=== PATIENT | female | born 2000 | race Caucasian/White ===

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

== ENCOUNTER → 2021-12-01 | Outpatient (CLI) | payer OTHER, SELFPAY ==
[2021-12-07 09:40] LABS: HPV Reflexed? NOT INDICATED
== END | disposition home or self-care (01) ==
LOC: LABSPEC 09:00
PROVIDERS: PCP Pediatrics; Visit Provider Student in an Organized Health Care Education/Training Program
DX: Z01.419 Encounter for gynecological examination (general) (routine) without abnormal findings (principal)
CPT/HCPCS: 88175; G0145

== ENCOUNTER → 2024-07-14 | Outpatient (CLI) | payer BC, SELFPAY ==
[2024-07-14 12:11] LABS: Absolute Lymphocyte Count 2.42 X10^3/uL (0.83-4.51); Absolute Neutrophil Count 10.2 X10^3/uL (2.0-7.7); Basophil# 0.08 X10^3/uL; Basophil% 0.6 % (0-1); Eosinophil# 0.04 X10^3/uL; Eosinophils% 0.3 % (0-5); Hematocrit 44.8 % (37-47); Hemoglobin 15.3 g/dL (12.0-15.0); Lymphocyte # 2.42 X10^3/ul (0.83-4.51); Lymphocyte % 18.1 % (19-41); Mean Corp Hgb Conc 34.2 g/dL (32-36); Mean Corpuscular Volume 90.9 fL (81-99); Mean Platelet Vol. 10.4 fl (6.2-12.0); Monocyte# 0.57 X10^3/uL; Monocyte% 4.3 % (0-10); NRBC Flagged by Analyzer 0 % (0-5); Neutrophil # 10.22 X10^3/uL (2.7-7.7); Neutrophil % 76.3 % (47-70); Platelet Count 393 K/mm3 (150-450); RBC Distribution Width CV 12.9 % (11.6-14.6); RBC Distribution Width SD 42.7 fl (35.1-43.9); Red Blood Count 4.93 M/mm3 (4.2-5.4); White Blood Count 13.4 K/mm3 (4.4-11.0)
[2024-07-14 12:59] LABS: Hemoglobin A1c 5.3 % (<=5.6)
[2024-07-14 13:10] LABS: HIV Nonreactive (Nonreactive); Hepatitis B Surface Antigen Nonreactive (Nonreactive); Hepatitis C Antibody Nonreactive (Nonreactive); Rubella IgG REAC (Nonreactive); Syphilis Antibodies Nonreactive (Nonreactive)
[2024-07-17 22:06] LABS: Chlamydia By Nucleic Acid AMP Negative (Negative); Gonococcus By Nucleic Acid AMP Negative (Negative)
== END | disposition home or self-care (01) ==
PROVIDERS: Obstetrics & Gynecology; PCP Pediatrics; Referring Provider Advanced Practice Midwife; Visit Provider Advanced Practice Midwife
DX: O09.90 Supervision of high risk pregnancy, unspecified, unspecified trimester (principal); Z3A.00 Weeks of gestation of pregnancy not specified
CPT/HCPCS: 36415; 83036; 85025; 86703; 86762; 86780; 86803; 86850; 86900; 86901; 87086; 87088; 87340; 87491; 87591; 88175; G0145

== ENCOUNTER → 2024-08-16 | Outpatient (CLI) | payer OTHER, SELFPAY ==
[2024-08-16 13:21] LABS: ALB/GLOB Ratio 1.3 RATIO (0.9-2.4); AST(SGOT) 18 U/L (<=31); Alanine Aminotransfer ALT/SGPT 18 U/L (<=34); Albumin, Serum 4.2 g/dL (3.5-5.0); Alkaline Phosphatase 74 U/L (35-104); Anion Gap 13 (5-15); BUN 6 mg/dL (4-19); BUN/Creat Ratio 13.3 RATIO (10-20); Calcium,Total 9.3 mg/dL (7.6-11.0); Carbon Dioxide 19.2 mmol/L (21.0-32.0); Chloride 103 mmol/L (98-108); Creatinine, Serum 0.48 mg/dL (0.70-1.20); EST Glomerular Filtration Rate 136 (>60); Globulin 3.2 g/dL (2.2-4.2); Glucose 109 mg/dL (70-99); Potassium 3.7 mmol/L (3.3-5.1); Protein, Total 7.3 g/dL (5.9-8.4); Sodium Level 135 mmol/L (133-145); Total Bilirubin < 0.15 mg/dL (0.00-1.30)
[2024-08-16 16:44] LABS: Protein, Urine (Random) < 6.0 mg/dL (0.0-12.0); Protein:Creat Ratio UNABLE TO CALCULATE mg/g CRE (0-200)
== END | disposition home or self-care (01) ==
PROVIDERS: PCP Pediatrics; Referring Provider Obstetrics & Gynecology; Visit Provider Obstetrics & Gynecology
DX: O16.9 Unspecified maternal hypertension, unspecified trimester (principal); Z3A.00 Weeks of gestation of pregnancy not specified
CPT/HCPCS: 36415; 80053; 82570; 84156

== ENCOUNTER → 2024-09-26 | Outpatient (CLI) | payer OTHER, SELFPAY ==
[2024-09-26 12:24] LABS: Hematocrit 40.6 % (37-47); Hemoglobin 13.4 g/dL (12.0-15.0); Immature Granulocytes Count 0.080 X10^3/uL (0.0-0.0); Mean Corp Hgb Conc 33.0 g/dL (32-36); Mean Corpuscular Volume 93.1 fL (81-99); Mean Platelet Vol. 10.4 fl (6.2-12.0); NRBC Flagged by Analyzer 0 % (0-5); Platelet Count 340 K/mm3 (150-450); RBC Distribution Width CV 13.9 % (11.6-14.6); RBC Distribution Width SD 47.1 fl (35.1-43.9); Red Blood Count 4.36 M/mm3 (4.2-5.4); White Blood Count 11.8 K/mm3 (4.4-11.0)
[2024-09-26 13:00] LABS: Creatinine, Urine (random) 22.20 mg/dL (28.00-217.00); Protein, Urine (Random) 9.0 mg/dL (0.0-12.0); Protein:Creat Ratio 405 mg/g CRE (0-200)
[2024-09-26 13:17] LABS: AST(SGOT) 16 U/L (<=31); Alanine Aminotransfer ALT/SGPT 15 U/L (<=34); Albumin, Serum 4.1 g/dL (3.5-5.0); Alkaline Phosphatase 75 U/L (35-104); Anion Gap 14 (5-15); BUN 9 mg/dL (4-19); BUN/Creat Ratio 18.9 RATIO (10-20); Calcium,Total 9.3 mg/dL (7.6-11.0); Carbon Dioxide 21.1 mmol/L (21.0-32.0); Chloride 103 mmol/L (98-108); Globulin 3.2 g/dL (2.2-4.2); Glucose 87 mg/dL (70-99); Potassium 3.6 mmol/L (3.3-5.1)
== END | disposition home or self-care (01) ==
PROVIDERS: PCP Pediatrics; Referring Provider Nurse Practitioner Women's Health; Visit Provider Nurse Practitioner Women's Health
DX: O16.9 Unspecified maternal hypertension, unspecified trimester (principal); Z3A.00 Weeks of gestation of pregnancy not specified
CPT/HCPCS: 36415; 80053; 82570; 84156; 85025

== ENCOUNTER → 2024-09-28 | Outpatient (CLI) | payer OTHER, SELFPAY ==
[2024-09-28 10:05] LABS: 24HR. Urine Creatinine 2034.4 mg/24 hr (740.0-1540.0); Creatinine Serum Creat 0.5 mg/dL (0.6-1.0); Urine Protein (24 Hour) 7.7 mg/dL (<11.9)
[2024-09-28 10:06] LABS: 24HR. UA Prot. Total Volume 3125 mL; 24Hr UA Prot. Collection Time 24.0 HOURS (24.0)
== END | disposition home or self-care (01) ==
PROVIDERS: Nurse Practitioner Women's Health; PCP Pediatrics; Referring Provider Obstetrics & Gynecology; Visit Provider Obstetrics & Gynecology
DX: O12.10 Gestational proteinuria, unspecified trimester (principal); Z3A.00 Weeks of gestation of pregnancy not specified
CPT/HCPCS: 36415; 81050; 82565; 82570; 82575; 84156

== ENCOUNTER → 2024-11-09 | Outpatient (CLI) | payer OTHER, SELFPAY ==
[2024-11-09 12:27] LABS: Hematocrit 38.4 % (37-47); Hemoglobin 12.7 g/dL (12.0-15.0); Immature Granulocytes Count 0.070 X10^3/uL (0.0-0.0); Mean Corp Hgb Conc 33.1 g/dL (32-36); Mean Corpuscular Volume 93.4 fL (81-99); Mean Platelet Vol. 10.6 fl (6.2-12.0); NRBC Flagged by Analyzer 0 % (0-5); Platelet Count 295 K/mm3 (150-450); RBC Distribution Width CV 14.0 % (11.6-14.6); RBC Distribution Width SD 47.6 fl (35.1-43.9); Red Blood Count 4.11 M/mm3 (4.2-5.4); White Blood Count 9.9 K/mm3 (4.4-11.0)
[2024-11-09 13:33] LABS: Glucose Challenge Gest 1H 50g 181 mg/dL (70-140); HIV Nonreactive (Nonreactive); Syphilis Antibodies Nonreactive (Nonreactive)
== END | disposition home or self-care (01) ==
PROVIDERS: Nurse Practitioner Women's Health; PCP Pediatrics; Referring Provider Obstetrics & Gynecology; Visit Provider Obstetrics & Gynecology
DX: O09.92 Supervision of high risk pregnancy, unspecified, second trimester (principal); Z3A.00 Weeks of gestation of pregnancy not specified; Z13.1 Encounter for screening for diabetes mellitus
CPT/HCPCS: 36415; 82950; 85025; 86703; 86780

== ENCOUNTER 2024-12-04 08:00 | Outpatient (RCR) | payer OTHER, SELFPAY | END 2024-12-05 23:59 | LOC: NS 08:00 | PROVIDERS: PCP Pediatrics; Referring Provider Obstetrics & Gynecology; Visit Provider Obstetrics & Gynecology | DX: Z71.3 Dietary counseling and surveillance (principal); O24.419 Gestational diabetes mellitus in pregnancy, unspecified control | CPT/HCPCS: 97802; 97803 ==

== ENCOUNTER → 2025-01-18 | Outpatient (CLI) | payer OTHER, SELFPAY | END | disposition home or self-care (01) | LOC: LABSPEC 17:10 | PROVIDERS: PCP Pediatrics; Visit Provider Obstetrics & Gynecology | DX: O09.92 Supervision of high risk pregnancy, unspecified, second trimester (principal); Z3A.00 Weeks of gestation of pregnancy not specified | CPT/HCPCS: 87081 ==

== ENCOUNTER 2025-02-08 15:00 | Outpatient (CLI) | payer OTHER, SELFPAY ==
[2025-02-08] VITALS (17 sets, daily range): BP systolic 113–127; BP diastolic 70–75; PULSE 99–111; RESP 14–16; TEMP 36.7; O2SAT 93–99; BMI 38.1
[2025-02-08 15:26] LABS: Hematocrit 40.2 % (37-47); Hemoglobin 13.4 g/dL (12.0-15.0); Mean Corp Hgb Conc 33.3 g/dL (32-36); Mean Corpuscular Volume 90.5 fL (81-99); Mean Platelet Vol. 10.7 fl (6.2-12.0); Platelet Count 293 K/mm3 (150-450); RBC Distribution Width CV 14.3 % (11.6-14.6); RBC Distribution Width SD 47.2 fl (35.1-43.9); Red Blood Count 4.44 M/mm3 (4.2-5.4); White Blood Count 14.3 K/mm3 (4.4-11.0)
[2025-02-08 15:51] LABS: AST(SGOT) 15 U/L (<=31); Alanine Aminotransfer ALT/SGPT 12 U/L (<=34); Estimated Creatinine Clearance 205.07 ml/min (50-250); Uric Acid 4.1 mg/dL (2.6-6.0)
[2025-02-08 15:56] LABS: Creatinine, Urine (random) 76.00 mg/dL (28.00-217.00); Protein, Urine (Random) 20.1 mg/dL (0.0-12.0); Protein:Creat Ratio 264 mg/g CRE (0-200)
--- NOTE | 2025-02-08 17:31 | OB.TRI.HP_ITS ---
HPI - General HPI Narrative JOSE POLLACK, is a 24 F who presents to L&D to rule out pre-e due to some borderline elevated blood pressures in the office. She denies headache, visual changes or abdominal pain. She is 39 weeks Maternal Data Information ED Calculator Estimated Delivery Date Method Current WG Current Estimate 02/15/25 LMP (Certain) 39w 0d Other Estimates 02/19/25 Ultrasound #1 38w 3d PFSH PFSH Medical History Seasonal allergies Home Medications ?Medication ?Instructions ?Recorded ?Last Taken ?Type docosahexaenoic acid 200 mg mg PO DAILY 06/07 05/02 Unknown History capsule ( DHA) flash glucose scanning reader #1 ea 11/10/24 Unknown R x (FreeStyle Rhonda 2 [place]) flash glucose sensor (FreeStyle #1 ea 11/28/24 Unknown Rx Rhonda 2 Sensor kit) Allergy/AdvReac Type Severity Reaction Status Date / Time amoxicillin Allergy Hives Verified 02/08/25 15:17 Penicillins Allergy Rash Verified 02/08/25 15:17 Family History Brother Asthma Father Diabetes Type 2 Grandfather Diabetes Type 2 Surgical History S/P wisdom tooth extraction S/P tonsillectomy and adenoidectomy Social History adopted: No household members: spouse current occupational status: employed current occupation: [employer] current occupational exposures/hazards: No pets and animals: Yes pets and animals: dog(s) history of recent travel: Yes ([place] & [place] & [place] - Apr 2024) out of state: No out of country: Yes sexually active: Yes Smoking Status: Never smoker alcohol intake: never substance use type: does not use well-balanced diet: daily or most days caffeine: No eating out: 1-3 times/week during the past year weight has: remained stable what type of physical activity do you participate in: walking frequency: 3-4 times per week duration: 15-30 minutes/day stephanie/lutheran: Shinto seatbelt use: always do you feel safe at home: Yes additional social history: : Joao Orosco History 1 Elective abortions Hx Para 0 Spontaneous abortions 0 Hx # Term Pregnancies Ectopic pregnancies Hx # Pregnancies Multiple births # of living children Visit Details Expected Delivery Route/Plan Labor Preferences- CB/BF classes: yes labor support person: Joao labor intervention preferences: [] pain management options preferred: open to epidural, touch, breathing techniques cut cord/dad catch: yes : yes PP control planned: [] discussed possible routes of delivery and associated risks: [] special requests: [] Plans Covid status: [] Flu vaccine: declines Tdap vaccine: given Rhogam: na LARC form signed: yes Problem list reviewed and updated with the most current plan of care details and appropriate orders placed. Relevant counseling for the gestational age provided. Continue routine care and follow up unless otherwise noted in visit notes/problem list details OB Flowsheet Initial Weight: Not Recorded Date -?-?-?-?-?-?-?-?-?-?-?-?- EGA Weight BP Urine Prot -?-?-?-?-?-?-?-?-?-?-?-?- Glucose FHR FuHt Pres Dilation -?-?-?-?-?-?-?-?-?-?-?-?- Effaced St Visit Note 07/14/24 -?-?-?-?-?-?--?-?-?-?-?-?- 9w 1d 226 lb 4 oz 146/95 -?-?-?-?-?-?-?-?-?-?-?-?- 171 -?-?-?-?-?-?-?-?-?-?-?-?- KW- CRL cons wit h dates. declines NIPT 08/16/24 -?-?-?-?-?-?-?-?-?-?-?-?- 13w 6d 229 lb 8 oz 126/94 Nega tive -?-?-?-?-?-?-?-?-?-?-?-?- Negative 160 -?-?-?-?-?-?-?-?-?-?-?-?- JV- patient stat es that she is feeling better BP was elevated initially. ordering baseline PIH labs and she will start taking her bp at home. 09/14/24 -?-?-?-?-?-?-?-?-?-?-?-?- 18w 0d 232 lb 6 oz 142/86 Nega tive -?-?-?-?-?-?-?-?-?-?-?-?- Negative 154 -?-?-?-?-?-?-?-?-?-?-?-?- JV- bp's at home are 120's/70's. not sure if feeling movement yet. has anatomy scan 09/21. She will bring in her cuff from home next visit to compare. repeat bp was the same 09/26/24 -?-?-?-?-?-?-?-?-?-?-?-?- 19w 5d 235 lb 2 oz 128/86 Nega tive -?-?-?-?-?-?-?-?-?-?-?-?- Negative -?-?-?-?-?-?-?-?-?-?-?-?- Nurse visit only :Variable BPs on home machine and high. No headache, vision changes. Small cuff, will get new machine. Pre E labs. 09/27/24 -?-?-?-?-?-?-?-?-?-?-?-?- 19w 6d 233 lb 2 oz 136/84 Nega tive -?-?-?-?-?-?-?-?-?-?-?-?- Negative -?-?-?-?-?-?-?-?-?-?-?-?- nurse visit only today for bp check due to headache 10/02/24 -?-?-?-?-?-?-?-?-?-?-?-?- 20w 4d 234 lb 140/86 -?-?-?-?-?-?-?-?-?-?-?-?- 145 -?-?-?-?-?-?-?-?-?-?-?-?- SM- nl bps at [facility] nl labs and 24 hour urine. no vb lof good fm no regular ctx 10/11/24 -?-?-?-?-?-?-?-?-?-?-?-?- 21w 6d 235 lb 8 oz 128/84 Nega tive -?-?-?-?-?-?-?-?-?-?-?-?- Negative 155 -?-?-?-?-?-?-?-?-?-?-?-?- MH-No VB. Good F M. Nausea resolved. No concerns 11/09/24 -?-?-?-?-?-?-?-?-?-?-?-?- 26w 0d 237 lb 9 oz 131/84 Nega tive -?-?-?-?-?-?-?-?-?-?-?-?- Negative 145 -?-?-?-?-?-?-?-?-?-?-?-?- JV- did glucose test today. no complaints. JV- did glucose test today. no complaints. has appt for placenta location on 11/2311/24/24 -?-?-?-?-?-?-?-?-?-?-?-?- 28w 1d 237 lb 3 oz 134/89 Nega tive -?-?-?-?-?-?-?-?-?-?-?-?- Negative 150 28 -?-?-?-?-?-?-?-?-?-?-?-?- KW- reviewed blo od sugars and within normal limits. no vb/lof/ctx. good fm LARC and tdap today. CBE classes set up. 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 had follow up US with mfm and placenta moved. 12/04/24 -?-?-?-?-?-?-?-?-?-?-?-?- 29w 4d 239 lb 5 oz 128/83 Nega tive -?-?-?-?-?-?-?-?-?-?-?-?- Negative 141 30 -?-?-?-?-?-?-?-?-?-?-?-?- MH-NO VB, LOF. G ood Fm. All QID glucose readings WNL. Will check FBS and one 2 hr pp. 12/19/24 -?-?-?-?-?-?-?-?-?-?-?-?- 31w 5d 240 lb 9 oz 127/82 Nega tive -?-?-?-?-?-?-?-?-?-?-?-?- Negative 147 32 -?-?-?-?-?-?-?-?-?-?-?-?- MH-No VB, LOF. G ood FM. Still QID testing and all reading WNL. 01/02/25 -?-?-?-?-?-?-?-?-?-?-?-?- 33w 5d 243 lb 4 oz 137/85 Nega tive -?-?-?-?-?-?-?-?-?-?-?-?- Negative 145 34 -?-?-?-?-?-?-?-?-?-?-?-?- SM- no vb lof go od fm no regular ctx. 01/18/25 -?-?-?-?-?-?-?-?-?-?-?-?- 36w 0d 245 lb 4 oz 131/77 Nega tive -?-?-?-?-?-?-?-?-?-?-?-?- Negative 145 36 -?-?-?-?-?-?-?-?-?-?-?-?- Sm- no vb lof go od fm no reuglar ctx gbs today BS controlled 01/24/25 -?-?-?-?-?-?-?-?-?-?-?-?- 36w 6d 247 lb 6 oz 132/87 Nega tive -?-?-?-?-?-?-?-?-?-?-?-?- Negative 145 37 Cephalic 2 -?-?-?-?-?-?-?-?-?-?-?-?- 60 -2 KW- no vb/ lof/ctx. good fm. BS reviewed and normal. 01/31/25 -?-?-?-?-?-?-?-?-?-?-?-?- 37w 6d 249 lb 2 oz 129/95 Nega tive -?-?-?-?-?-?-?-?-?-?-?-?- Negative 140 37 Cephalic 2 .5 -?-?-?-?-?-?-?-?-?-?-?-?- 50 -2 JV- no lof , vaginal bleeding, or dec fm. glucose log is normal. growth scan from last week normal. 5.5lbs ac at 22nd% 02/08/25 -?-?-?-?-?-?-?-?-?-?-?-?- 39w 0d 252 lb 2 oz 138/83 Nega tive -?-?-?-?-?-?-?-?-?-?-?-?- Negative 159 38 Cephalic 2 .5 -?-?-?-?-?-?-?-?-?-?-?-?- 80 -2 JV- glucos e normal. first bp was 150's/ 90's sending to L&D to rule out pre-e ROS Constitutional Constitutional: Reports systems reviewed and no addt'l complaints, except as documented Gastrointestinal Gastrointestinal: Denies bloating, constipation, cramping, diarrhea, nausea or vomiting Genitourinary Genitourinary: Reports other Details: Denies vaginal odor, vaginal bleeding, or vaginal discharge ; Denies difficulty urinating or flank pain NST FHR Rate Baby A Baseline: 140 Variability:: Moderate Accelerations:: 15 x 15 Decelerations:: None NST Reactive:: Yes FHR Category:: Category I Assessment & Plan (1) White coat syndrome without hypertension: COMMENT: all normal bps at home. (2) Gestational diabetes: QUALIFIERS: Gestational diabetes mellitus control: diet-controlled Trimester: second trimester Qualified Code(s): O24.410 - Gestational diabetes mellitus in , diet controlled COMMENT: diet controlled. growth US 36 weeks (3) Obesity affecting : QUALIFIERS: Trimester: second trimester Obesity type affecting : unspecified obesity Qualified Code(s): O99.212 - Obesity complicatin g , second trimester COMMENT: BMI 34.7; HgBA1C ordered w/NOB (4) Supervision of high-risk : QUALIFIERS: Trimester: second trimester Qualified Code(s): O09.92 - Supervision of high risk , unspecified, second trimester COMMENT: PRR ED 02/15/25, boy Davin : Joao (5) : QUALIFIERS: Weeks of gestation: 37 weeks Qualified Code(s): Z3A.37 - 37 weeks gestation of COMMENT: Neg GBS. Declines genetic/carrier/ntd testing. nl anatomy PLAN: Plan likely white coat syndrome in the office. all bp's are normal on L&D and labs are normal. nst reactive ok to dc home Charges/Coding Multi Select Codes Urinary/Genital Urinary/Genital CPT Codes: 88199-03 non-stress test Interp
--- NOTE | 2025-02-08 17:31 | OB.TRI.NOTE ---
HPI - General HPI Narrative JOSE POLLACK, is a 24 F who presents to L&D to rule out pre-e due to some borderline elevated blood pressures in the office. She denies headache, visual changes or abdominal pain. She is 39 weeks Maternal Data Information ED Calculator Estimated Delivery Date Method Current WG Current Estimate 02/15/25 LMP (Certain) 39w 0d Other Estimates 02/19/25 Ultrasound #1 38w 3d PFSH PFSH Medical History Seasonal allergies Home Medications ?Medication ?Instructions ?Recorded ?Last Taken ?Type docosahexaenoic acid 200 mg mg PO DAILY 06/27/24 Unknown History capsule ( DHA) flash glucose scanning reader #1 ea 11/10/24 Unknown Rx (FreeStyle Rhonda 2 [place]) flash glucose sensor (FreeStyle #1 ea 11/28/24 Unknown Rx Rhonda 2 Sensor kit) Allergy/AdvReac Type Severity Reaction Status Date / Time amoxicillin Allergy Hives Verified 02/08/25 15:17 Penicillins Allergy Rash Verified 02/08/25 15:17 Family History Brother Asthma Father Diabetes Type 2 Grandfather Diabetes Type 2 Surgical History S/P wisdom tooth extraction S/P tonsillectomy and adenoidectomy Social History adopted: No household members: spouse current occupational status: employed current occupation: [employer] current occupational exposures/hazards: No pets and animals: Yes pets and animals: dog(s) history of recent travel: Yes ([place] & [place] & [place] - Apr 2024) out of state: No out of country: Yes sexually active: Yes Smoking Status: Never smoker alcohol intake: never substance use type: does not use well-balanced diet: daily or most days caffeine: No eating out: 1-3 times/week during the past year weight has: remained stable what type of physical activity do you participate in: walking frequency: 3-4 times per week duration: 15-30 minutes/day stephanie/mandaen: Yazidi seatbelt use: always do you feel safe at home: Yes additional social history: : Joao Orosco History 1 Elective abortions Hx Para 0 Spontaneous abortions 0 Hx # Term Pregnancies Ectopic pregnancies Hx # Pregnancies Multiple births # of living children Visit Details Expected Delivery Route/Plan Labor Preferences- CB/BF classes: yes labor support person: Joao labor intervention preferences: [] pain management options preferred: open to epidural, touch, breathing techniques cut cord/dad catch: yes : yes PP control planned: [] discussed possible routes of delivery and associated risks: [] special requests: [] Plans Covid status: [] Flu vaccine: declines Tdap vaccine: given Rhogam: na LARC form signed: yes Problem list reviewed and updated with the most current plan of care details and appropriate orders placed. Relevant counseling for the gestational age provided. Continue routine care and follow up unless otherwise noted in visit notes/problem list details OB Flowsheet Initial Weight: Not Recorded Date <del>?</del> EGA Weight BP Urine Prot <del>?</del> Glucose FHR FuHt Pres Dilation <del>?</del> Effaced St Visit Note 07/14/24 <del>?</del> 9w 1d 226 lb 4 oz 146/95 <del>?</del> 171 <del>?</del> KW- CRL cons with dates. declines NIPT 08/16/24 <del>?</del> 13w 6d 229 lb 8 oz 126/94 Negative <del>?</del> Negative 160 <del>?</del> JV- patient states that she is feeling better BP was elevated initially. ordering baseline PIH labs and she will start taking her bp at home. 09/14/24 <del>?</del> 18w 0d 232 lb 6 oz 142/86 Negative <del>?</del> Negative 154 <del>?</del> JV- bp's at home are 120's/70's. not sure if feeling movement yet. has anatomy scan 09/21. She will bring in her cuff from home next visit to compare. repeat bp was the same 09/26/24 <del>?</del> 19w 5d 235 lb 2 oz 128/86 Negative <del>?</del> Negative <del>?</del> Nurse visit only:Variable BPs on home machine and high. No headache, vision changes. Small cuff, will get new machine. Pre E labs. 09/27/24 <del>?</del> 19w 6d 233 lb 2 oz 136/84 Negative <del>?</del> Negative <del>?</del> nurse visit only today for bp check due to headache 10/02/24 <del>?</del> 20w 4d 234 lb 140/86 <del>?</del> 145 <del>?</del> SM- nl bps at home nl labs and 24 hour urine. no vb lof good fm no regular ctx 10/11/24 <del>?</del> 21w 6d 235 lb 8 oz 128/84 Negative <del>?</del> Negative 155 <del>?</del> MH-No VB. Good FM. Nausea resolved. No concerns 11/09/24 <del>?</del> 26w 0d 237 lb 9 oz 131/84 Negative <del>?</del> Negative 145 <del>?</del> JV- did glucose test today. no complaints. JV- did glucose test today. no complaints. has appt for placenta location on 11/2311/24/24 <del>?</del> 28w 1d 237 lb 3 oz 134/89 Negative <del>?</del> Negative 150 28 <del>?</del> KW- reviewed blood sugars and within normal limits. no vb/lof/ctx. good fm LARC and tdap today. CBE classes set up. will think about fish skinning machine feeder. had follow up US with mfm and placenta moved. 12/04/24 <del>?</del> 29w 4d 239 lb 5 oz 128/83 Negative <del>?</del> Negative 141 30 <del>?</del> -NO VB, LOF. Good Fm. All QID glucose readings WNL. Will check FBS and one 2 hr pp. 12/19/24 <del>?</del> 31w 5d 240 lb 9 oz 127/82 Negative <del>?</del> Negative 147 32 <del>?</del> MH-No VB, LOF. Good FM. Still QID testing and all reading WNL. 01/02/25 <del>?</del> 33w 5d 243 lb 4 oz 137/85 Negative <del>?</del> Negative 145 34 <del>?</del> SM- no vb lof good fm no regular ctx. 01/18/25 <del>?</del> 36w 0d 245 lb 4 oz 131/77 Negative <del>?</del> Negative 145 36 <del>?</del> Sm- no vb lof good fm no reuglar ctx gbs today BS controlled 01/24/25 <del>?</del> 36w 6d 247 lb 6 oz 132/87 Negative <del>?</del> Negative 145 37 Cephalic 2 <del>?</del> 60 -2 KW- no vb/lof/ctx. good fm. BS reviewed and normal. 01/31/25 <del>?</del> 37w 6d 249 lb 2 oz 129/95 Negative <del>?</del> Negative 140 37 Cephalic 2.5 <del>?</del> 50 -2 JV- no lof, vaginal bleeding, or dec fm. glucose log is normal. growth scan from last week normal. 5.5lbs ac at 22nd% 02/08/25 <del>?</del> 39w 0d 252 lb 2 oz 138/83 Negative <del>?</del> Negative 159 38 Cephalic 2.5 <del>?</del> 80 -2 JV- glucose normal. first bp was 150's/ 90's sending to L&D to rule out pre-e ROS Constitutional Constitutional: Reports systems reviewed and no addt'l complaints, except as documented Gastrointestinal Gastrointestinal: Denies bloating, constipation, cramping, diarrhea, nausea or vomiting Genitourinary Genitourinary: Reports other Details: Denies vaginal odor, vaginal bleeding, or vaginal discharge ; Denies difficulty urinating or flank pain NST FHR Rate Baby A Baseline: 140 Variability:: Moderate Accelerations:: 15 x 15 Decelerations:: None NST Reactive:: Yes FHR Category:: Category I Assessment & Plan (1) White coat syndrome without hypertension: COMMENT: all normal bps at home. (2) Gestational diabetes: QUALIFIERS: Gestational diabetes mellitus control: diet-controlled Trimester: second trimester Qualified Code(s): O24.410 - Gestational diabetes mellitus in , diet controlled COMMENT: diet controlled. growth US 36 weeks (3) Obesity affecting : QUALIFIERS: Trimester: second trimester Obesity type affecting : unspecified obesity Qualified Code(s): O99.212 - Obesity complicating , second trimester COMMENT: BMI 34.7; HgBA1C ordered w/NOB (4) Supervision of high-risk : QUALIFIERS: Trimester: second trimester Qualified Code(s): O09.92 - Supervision of high risk , unspecified, second trimester COMMENT: PRR ED 02/15/25, darian Jin : Joao (5) : QUALIFIERS: Weeks of gestation: 37 weeks Qualified Code(s): Z3A.37 - 37 weeks gestation of COMMENT: Neg GBS. Declines genetic/carrier/ntd testing. nl anatomy PLAN: Plan likely white coat syndrome in the office. all bp's are normal on L&D and labs are normal. nst reactive ok to dc home Charges/Coding Multi Select Codes Urinary/Genital Urinary/Genital CPT Codes: 85211-02 non-stress test Interp
== END 2025-02-08 16:30 | disposition home or self-care (01) ==
LOC: WPOUT 15:02 → WP 15:03
PROVIDERS: PCP Pediatrics; Referring Provider Obstetrics & Gynecology; Visit Provider Obstetrics & Gynecology
DX: O99.891 Other specified diseases and conditions complicating pregnancy (principal); R03.0 Elevated blood-pressure reading, without diagnosis of hypertension; Z3A.39 39 weeks gestation of pregnancy
CPT/HCPCS: 36415; 59025; 59050; 82565; 82570; 84156; 84450; 84460; 84550; 85027; 99221; G0378

== ENCOUNTER 2025-02-13 10:45 | Inpatient (IN) | payer OTHER, SELFPAY ==
[2025-02-13] VITALS (46 sets, daily range): BP systolic 116–172; BP diastolic 68–117; PULSE 85–134; RESP 16; TEMP 35.8–36.8; O2SAT 81–100; BMI 44.7; BMI 1800.0; BMI 20251209.0
[2025-02-13 10:26] LABS: ROM Internal Control Test YES-OK TO RESULT pt. (Internal QC); ROM Patient Test Negative (Negative); Record Kit Lot#, ROM+ K3607
[2025-02-13] MEDS: Lactated Ringers 1,000 ML 50 ML IV (12:15)
[2025-02-13 12:52] LABS: Hematocrit 41.6 % (37-47); Hemoglobin 14.1 g/dL (12.0-15.0); Immature Granulocytes Count 0.050 X10^3/uL (0.0-0.0); Mean Corp Hgb Conc 33.9 g/dL (32-36); Mean Corpuscular Volume 89.5 fL (81-99); Mean Platelet Vol. 11.1 fl (6.2-12.0); NRBC Flagged by Analyzer 0 % (0-5); Platelet Count 289 K/mm3 (150-450); RBC Distribution Width CV 14.4 % (11.6-14.6); RBC Distribution Width SD 46.5 fl (35.1-43.9); Red Blood Count 4.65 M/mm3 (4.2-5.4); White Blood Count 12.4 K/mm3 (4.4-11.0)
--- OUTSIDE RECORDS SUMMARY | 2025-02-13 13:21 | XMS RPT_ITS | CCD ---
Author Organization [facility] Care Team Providers Care Decorative Cutting Machine Tender Name Role Phone Dr. Eran Vu DO Primary Care Provider Facundo HWANG, Dr. Petersen Referring Provider Uriel ARAYA, Dr. Olivier Attending Provider Nancy Wolfe CNM Attending Provider [phone] Nancy Wolfe CNM Referring Provider [phone] Dr. Kiley Haji DO Attending Provider Dr. Kiley aHji DO Referring Provider Simeon SIERRA-Naomi Mack Attending Provider [phone] Naomi Juan Referring Provider [phone] Dr. Eran Vu DO Primary Care Provider Facundo HWANG, Dr. Petersen Referring Provider [phone] Dr. Charline Alvarez MD Attending Provider [phone] Dr. Charline Alvarez MD Referring Provider [phone] CHARLINE ALVAREZ Referring UnavailERAN Vidales Primary Care Unavailable LUCAS LYNN Attending Unavailable ERAN VU Primary Care Unavailable KILEY HALLMAN Referring Unavailab SILVINA Paris Attending Unavailable ERAN VU Primary Care Unavailable JANIYA TORRES Attending Unavailable KILEY HALLMAN Referring Unavailab Dr. Eran Goddard DO Primary Care Physician [phone] Dr. Eran Vu DO Referring Provider Dr. Kiley Haji DO Attending Physician Simeon ROUTER SETTER-C, Naomi Attending Physician [phone] Uriel ARAYA, Dr. Olivier Attending Physician Nancy Wolfe CNM Attending Physician [phone] Facundo HWANG, Dr. Petersen Primary Care Physician Facundo HWANG, Dr. Petersen Referring Provider Judah George DO, Dr. Cao Attending Physician Judah George DO, Dr. Cao Referring Provider Eran Vu Referring Unavailable Vu, Eran Primary Care Unavailable Nancy Wolfe Attending Unavailable Vande Velwicho, Kiley Attending Unavailabl e Vande Velde, Kiley Referring Unavailabl e Vu, Eran Primary Care Unavailable VuEran bailon Primary Care Unavailable Charline Alvarez Referring Unavailable Charline Alvarez Attending Unavailable Eran Vu Referring Unavailable Liberty ROUTER SETTERNaomi Attending Unavailable Eran Vu Primary Care Unavailable VuEran bailon Referring Unavailable MarcanthCharline tang Attending Unavailable VuEran bailon Primary Care Unavailable Vande Velwicho, Kiley Attending Unavailabl e VuEran bailon Primary Care Unavailable VuEran bailon Referring Unavailable VuEran bailon Primary Care Unavailable Nancy Wolfe Referring Unavailable Nancy Wolfe Attending Unavailable Vande Velde, Kiley Referring Unavailabl e Vande Velde, Kiley Attending Unavailabl e VuEran bailon Primary Care Unavailable VuEran bailon Primary Care Unavailable Eran Vu Referring Unavailable Liberty ROUTER SETTER, Naomi Attending Unavailable Vande Velde, Kiley Attending Unavailabl e Vu, Eran Primary Care Unavailable VuEran bailon Referring Unavailable Liberty ROUTER SETTER, Naomi Referring Unavailable Simeon ROUTER SETTER, Naomi Attending Unavailable Eran Vu Primary Care Unavailable VuEran bailon Primary Care Unavailable Charline Alvarez Referring Unavailable Charline Alvarez Attending Unavailable VuEran bailon Primary Care Unavailable Charline Alvarez Attending Unavailable Charline Alvarez Referring Unavailable VuEran bailon Primary Care Unavailable Eran Vu Referring Unavailable Simeon ROUTER SETTER, Naomi Attending Unavailable Eran Vu Referring Unavailable VuEran bailon Primary Care Unavailable Simeon ROUTER SETTER, Naomi Attending Unavailable VuEran bailon Referring Unavailable Vande VeldeVeniceKiley Attending UnavailEran Vidales Primary Care Unavailable Facundo, Eran Referring Unavailable Facundo, Eran Primary Care Unavailable Charline Alvarez Attending Unavailable Eran Vu Primary Care Unavailable Facundo, Eran Referring Unavailable Nancy Wolfe Attending Unavailable Facundo, Eran Referring Unavailable Vu, Eran Primary Care Unavailable Charline Alvarez Attending Unavailable Eran Vu Referring Unavailable Kiley Haji Attending UnavailEran Vidales Primary Care Unavailable Facundo, Eran Referring Unavailable Kiley Haji Attending Unavailmarty e Facundo, Eran Primary Care Unavailable Allergies Allergy Classification Reported Allergen(s) Allergy Type Date of Onset Reaction(s) Facility (17 sources) Amoxicillin Drug Allergy 2 Hives [facility] (1 source) Seasonal Allergies: Uncoded Allergy to substance 2 NEEDS FOLLOW-UP [facility] Work Phone: (17 sources) Penicillins; Translations: [PENICILLINS] Allergy to substance 2 Rash [facility] (1 source) Amoxicillin Drug Allergy 5 [facility] Repository (1 source) Penicillins Drug allergy (disorder) 5 [facility] Repository Medications Current Medications Medication Drug Class(es) Dates Sig (Normalized) Sig (Original) docosahexaenoic acid 200 mg oral capsule (16 sources) Start: 06-27-2024 Flash Glucose Scanning [place] (Freestyle Rhonda 2 [place]) misc (5 sources) Start: 11-10-2024 Flash Glucose Scanning [place] (Freestyle Rhonda 2 [place]) misc Active 0 .Route 1 0 November 10, 2024 12:00am As directed Flash Glucose Sensor (Freestyle Rhonda 2 Sensor) kit (10 sources) Start: 11-28-2024 Flash Glucose Sensor (Freestyle Rhonda 2 Sensor) kit Active 0 .Route 1 November 28, 2024 8:36am As directed, fasting & 2 hr post meals Start: 11-10-2024 End: 11-28-2024 Flash Glucose Sensor (Freest yle Rhonda 2 Sensor) kit Discontinued 0 .Route 1 November 10, 2024 12:00am November 28, 2024 8:37am As directed, fasting & 2 hr post meals Completed/Discontinued Medications Medication Drug Class(es) Dates Sig (Normalized) Sig (Original) naphazoline hydrochloride 0.25 mg/ml / pheniramine maleate 3 mg/ml ophthalmic solution (17 sources) Start: 08-01-2016 End: 06-27-2024 Naphazoline-Phenira mine (Naphcon-A Eye Drops) 1 DROP drops Discontinued 1 NMA Right Eye 4 TIMES DAILY 1 0 August 01, 2016 12:00am June 27, 2024 8:14am Problems Active Problems Problem Classification Problem Date Documented Da te Episodic/Chronic Diabetes or abnormal glucose tolerance complicating ; childbirth; or the puerperium (16 sources) Gestational diabetes mellitus; Translations: [Gestational diabetes mellitus in , unspecified control] 12-04-2024 Episodic Comment on above: nutrition consult, g lucose testing fasting and 2 HR PP;all readings perfect, go to FBS and 1 2hr pp nutrition consult, g lucose testing fasting and 2 HR PP;all readings perfect, go to FBS and 1 2hr pp but still doing QID and WNL Hypertension complicating ; childbirth and the puerperium (1 source) Unspecified maternal hypertension, unspecified trimester; Translations: [Unspecified maternal hypertension, unspecified trimester] Onset: 10-02-2024 Chronic Immunizations and screening for infectious disease (1 source) Encounter for immunization; Translations: [Encounter for immunization] Onset: 11-24-2024 Episodic Menstrual disorders (1 source) Amenorrhea, unspecified; Translations: [Amenorrhea, unspecified] Onset: 2024 Chronic Other circulatory disease (20 sources) Elevated blood pressure; Translations: [Elevated blood-pressure reading, without diagnosis of hypertension] 09-26-2024 Episodic Comment on above: Home machine higher when brought in. Will get new machine. Pre E labs Other circulatory disease (20 sources) Labile hypertension due to being in a clinical environment; Translations: [Elevated blood-pressure reading, without diagnosis of hypertension] 10-02-2024 Episodic Comment on above: all normal bps at [facility]. Other complications of (20 sources) Maternal obesity complicating , childbirth and the puerperium, antepartum; Translations: [Obesity complicating , unspecified trimester] 06-27-2024 Chronic Comment on above: BMI 34.7; HgBA1C ord ered w/NOB Other complications of (1 source) Obesity complicating , second trimester; Translations: [Obesity complicating , second trimester] Onset: 09-27-2024 Chronic Other complications of (1 source) Obesity complicating , unspecified trimester; Translations: [Obesity complicating , unspecified trimester] Onset: 2024 Chronic Other complications of (20 sources) High risk ; Translations: [Supervision of high risk , unspecified, unspecified trimester] 06-27-2024 Episodic Comment on above: G1, ED 02/15/25, Hu sband: Joao PRR ED 5, boy : Joao Other complications of (20 sources) Proteinuria; Translations: [Gestational proteinuria, unspecified trimester] 09-26-2024 Episodic Comment on above: 09/26: 405. Other lab s nl. 24 hr urine ordered. Rpt pre E labs and check bp 1 wk. repeat WNL09/26: 405. Other labs nl. 24 hr urine ordered. Rpt pre E labs and check bp 1 wk. Other complications of (1 source) Supervision of high risk , unspecified, second trimester; Translations: [Supervision of high risk , unspecified, second trimester] Onset: 11-24-2024 Episodic Past or Other Problems Problem Classification Problem Date Documented Da te Episodic/Chronic Hemorrhage during ; abruptio placenta; placenta previa (20 sources) Low lying placenta; Translations: [Low lying placenta NOS or without hemorrhage, second trimester] Onset: 09-27-2024 09-25-2024 Episodic Comment on above: 28 week repeat US resolved Other circulatory disease (1 source) Elevated blood-pressure reading, without diagnosis of hypertension; Translations: [Elevated blood-pressure reading, without diagnosis of hypertension] Onset: 09-27-2024 Episodic Other complications of (1 source) Gestational proteinuria, unspecified trimester; Translations: [Gestational proteinuria, unspecified trimester] Onset: 10-04-2024 Episodic Other complications of (1 source) Supervision of high risk , unspecified, unspecified trimester; Translations: [Supervision of high risk , unspecified, unspecified trimester] Onset: 10-11-2024 Episodic Other and delivery including normal (20 sources) ; Translations: [Encounter for supervision of normal , unspecified, unspecified trimester] Onset: 2024 07-14-2024 Episodic Comment on above: Declines genetic/car rier testing Other screening for suspected conditions (not mental disorders or infectious disease) (1 source) Encounter for screening for malignant neoplasm of cervix; Translations: [Encounter for screening for malignant neoplasm of cervix] Onset: 07-14-2024 Episodic Residual codes; unclassified (1 source) 19 weeks gestation of ; Translations: [19 weeks gestation of ] Onset: 09-27-2024 Episodic Residual codes; unclassified (1 source) 9 weeks gestation of ; Translations: [9 weeks gestation of ] Onset: 07-14-2024 Episodic Results Test Name Value Interpretation Reference Range Facility Clinical Nursing Manager Office Visit Reporton 01-02-2025 Clinical Nursing Manager Office Visit Report [facility]'s [address], [address] [place] [address] OFFICE VISIT Date of Service: 01/02/25 MR#: [id number] Acct: [id number] Name: JOSE POLLACK Rep #: [id number] 23 : 2000 Provider: Dr. Charline bolton MD Age/Sex: 24/F [place] [facility] [place] Status: Signed Intake Vital Signs 11/09/24 09:00 12/19/24 10:35 01/02/25 09:23 Height 5 ft 8 in 5 ft 8 in 5 ft 8 in Weight: 243 lb 4 oz BMI 37.0 BP 137/85 H Intake Visit Reasons: 34wk ob Assistant Center Manager Required: No Is patient in pain?: No Allergies amoxicillin Allergy (Verified 01/02/25 09:25) Hives Penicillins Allergy (Verified 01/02/25 09:25) Rash Medications ???Medication ???Instructions ???Recorded ???Confirmed ???Type docosahexaenoic acid 200 mg mg PO 06/27/24 01/02/25 History capsule ( DHA) flash glucose scanning reader #1 ea 11/10/24 01/02/25 Rx (FreeStyle Rhonda 2 [place]) flash glucose sensor (FreeStyle #1 ea 11/28/24 01/02/25 Rx Rhonda 2 Sensor kit) Last Menstrual Period: 05/11/24 Zika: Zika virus screening: Negative : No PFSH PFSH Medical History Seasonal allergies Surgical History S/P wisdom tooth extraction S/P tonsillectomy and adenoidectomy Family History Brother Asthma Father Diabetes Type 2 Grandfather Diabetes Type 2 Social History adopted: No household members: spouse current occupational status: employed current occupation: [employer] current occupational exposures/hazards: No pets and animals: Yes pets and animals: dog(s) history of recent travel: Yes ([facility] - Apr 2024) out of state: No out of country: Yes sexually active: Yes Smoking Status: Never smoker alcohol intake: never substance use type: does not use well-balanced diet: daily or most days caffeine: No eating out: 1-3 times/week during the past year weight has: remained stable what type of physical activity do you participate in: walking frequency: 3-4 times per week duration: 15-30 minutes/day stephanie/gnosticist: Yazidism seatbelt use: always do you feel safe at home: Yes additional social history: : Joao Orosco History 1 Elective abortions Hx Para 0 Spontaneous abortions 0 Hx # Term Pregnancies Ectopic pregnancies Hx # Pregnancies Multiple births # of living children HPI 34wk ob Details: JOSE POLLACK is a 24 year old who presents for routine OB visit. OB Visit ED Calculator Estimated Delivery Date Method Current WG Current Estimate 02/15/25 LMP (Certain) 33w 5d Other Estimates 02/19/25 Ultrasound #1 33w 1d Expected Delivery Route/Plan Labor Preferences- CB/BF classes: yes labor support person: Joao labor intervention preferences: [] pain management options preferred: [] cut cord/dad catch: yes : yes PP control planned: [] discussed possible routes of delivery and associated risks: [] special requests: [] Specific Issue/Plans Covid status: [] Flu vaccine: declines Tdap vaccine: given Rhogam: na LARC form signed: yes Problem list reviewed and updated with the most current plan of care details and appropriate orders placed. Relevant counseling for the gestational age provided. Continue routine care and follow up unless otherwise noted in visit notes/problem list details Initial Weight: Not Recorded Date -???-???-???-???-?? ?-???-???-???-???-? ??-???-???- EGA Weight BP Urine Prot -???-???-???-???-?? ?-???-???-???-???-? ??-???-???- Glucose FHR FuHt Pres Dilation -???-???-???-???-?? ?-???-???-???-???-? ??-???-???- Effaced St Visit Note 07/14/24 -???-???-???-???-?? ?-???-???-???-???-? ??-???-???- 9w 1d 226 lb 4 oz 146/95 -???-???-???-???-?? ?-???-???-???-???-? ??-???-???- 171 -???-???-???-???-?? ?-???-???-???-???-? ??-???-???- KW- CRL cons with dates. declines NIPT 08/16/24 -???-???-???-???-?? ?-???-???-???-???-? ??-???-???- 13w 6d 229 lb 8 oz 126/94 Negative -???-???-???-???-?? ?-???-???-???-???-? ??-???-???- Negative 160 -???-???-???-???-?? ?-???-???-???-???-? ??-???-???- JV- patient states that she is feeling better BP was elevated initially. ordering baseline PIH labs and she will start taking her bp at home. 09/14/24 -???-???-???-???-?? ?-???-???-???-???-? ??-???-???- 18w 0d 232 lb 6 oz 142/86 Negative -???-???-???-???-?? ?-???-???-???-???-? ??-???-???- Negative 154 -???-???-???-???-?? ?-???-???-???-???-? ??-???-???- JV- bp's at home are 120's/70's. not sure if feeling movement yet. has anato (more content not included)... Normal [facility] - Chemistry and C hemistry - challengeOrdered By: Naomi Hendrix on 12-19-2024 Glucose Ql (U) Negative [facility] - UrinalysisOrder ed By: Naomi Hendrix on 12-19-2024 Protein Ql (U) Negative [facility] Clinical Nursing Manager Office Visit Reporton 12-19-2024 Clinical Nursing Manager Office Visit Report [facility]'s [address], [address] [place] [address] OFFICE VISIT Date of Service: 12/19/24 MR#: [id number] Acct: [id number] Name: JOSE POLLACK Rep #: [id number] : 2000 Provider: DARIANA harper Age/Sex: 24/F Location[place] [facility] [place] Status: Signed Intake Vital Signs 11/09/24 09:00 12/04/24 08:52 12/19/24 10:35 Height 5 ft 8 in 5 ft 8 in 5 ft 8 in Weight: 240 lb 9 oz BMI 36.6 BP 127/82 H Intake Visit Reasons: 32wk ob Assistant Center Manager Required: No Is patient in pain?: No Allergies amoxicillin Allergy (Verified 12/19/24 10:37) Hives Penicillins Allergy (Verified 12/19/24 10:37) Rash Medications ???Medication ???Instructions ???Recorded ???Confirmed ???Type docosahexaenoic acid 200 mg mg PO 06/27/24 12/19/24 History capsule ( DHA) flash glucose scanning reader #1 ea 11/10/24 12/19/24 Rx (FreeStyle Rhonda 2 [place]) flash glucose sensor (FreeStyle #1 ea 11/28/24 12/19/24 Rx Rhonda 2 Sensor kit) Last Menstrual Period: 05/11/24 Zika: Zika virus screening: Negative : No PFSH PFSH Medical History Seasonal allergies Surgical History S/P wisdom tooth extraction S/P tonsillectomy and adenoidectomy Family History Brother Asthma Father Diabetes Type 2 Grandfather Diabetes Type 2 Social History adopted: No household members: spouse current occupational status: employed current occupation: [employer] current occupational exposures/hazards: No pets and animals: Yes pets and animals: dog(s) history of recent travel: Yes ([facility] - Apr 2024) out of state: No out of country: Yes sexually active: Yes Smoking Status: Never smoker alcohol intake: never substance use type: does not use well-balanced diet: daily or most days caffeine: No eating out: 1-3 times/week during the past year weight has: remained stable what type of physical activity do you participate in: walking frequency: 3-4 times per week duration: 15-30 minutes/day stephanie/gnosticist: Yazidism seatbelt use: always do you feel safe at home: Yes additional social history: : Joao Orosco History 1 Elective abortions Hx Para 0 Spontaneous abortions 0 Hx # Term Pregnancies Ectopic pregnancies Hx # Pregnancies Multiple births # of living children HPI 32wk ob Details: JOSE POLLACK is a 24 year old who presents for routine OB visit. OB Visit ED Calculator Estimated Delivery Date Method Current WG Current Estimate 02/15/25 LMP (Certain) 31w 5d Other Estimates 02/19/25 Ultrasound #1 31w 1d Expected Delivery Route/Plan Labor Preferences- CB/BF classes: yes labor support person: Joao labor intervention preferences: [] pain management options preferred: [] cut cord/dad catch: yes : yes PP control planned: [] discussed possible routes of delivery and associated risks: [] special requests: [] Specific Issue/Plans Covid status: [] Flu vaccine: declines Tdap vaccine: given Rhogam: na LARC form signed: yes Problem list reviewed and updated with the most current plan of care details and appropriate orders placed. Relevant counseling for the gestational age provided. Continue routine care and follow up unless otherwise noted in visit notes/problem list details Initial Weight: Not Recorded Date -???-???-???-???-?? ?-???-???-???-???-? ??-???-???- EGA Weight BP Urine Prot -???-???-???-???-?? ?-???-???-???-???-? ??-???-???- Glucose FHR FuHt Pres Dilation -???-???-???-???-?? ?-???-???-???-???-? ??-???-???- Effaced St Visit Note 07/14/24 -???-???-???-???-?? ?-???-???-???-???-? ??-???-???- 9w 1d 226 lb 4 oz 146/95 -???-???-???-???-?? ?-???-???-???-???-? ??-???-???- 171 -???-???-???-???-?? ?-???-???-???-???-? ??-???-???- KW- CRL cons with dates. declines NIPT 08/16/24 -???-???-???-???-?? ?-???-???-???-???-? ??-???-???- 13w 6d 229 lb 8 oz 126/94 Negative -???-???-???-???-?? ?-???-???-???-???-? ??-???-???- Negative 160 -???-???-???-???-?? ?-???-???-???-???-? ??-???-???- JV- patient states that she is feeling better BP was elevated initially. ordering baseline PI labs and she will start taking her bp at home. 09/14/24 -???-???-???-???-?? ?-???-???-???-???-? ??-???-???- 18w 0d 232 lb 6 oz 142/86 Negative -???-???-???-???-?? ?-???-???-???-???-? ??-???-???- Negative 154 -???-???-???-???-?? ?-???-???-???-???-? ??-???-???- JV- bp's at home are 120's/70's. not sure if feeling movement yet. has anatom (more content not included)... Normal [facility] - Chemistry and C hemistry - challengeOrdered By: Nancy Wolfe on 12-04-2024 Glucose Ql (U) Negative [facility] - UrinalysisOrder ed By: Nancy Wolfe on 12-04-2024 Protein Ql (U) Negative [facility] Clinical Nursing Manager Office Visit Reporton 12-04-2024 Clinical Nursing Manager Office Visit Report [facility]'s [address], [address] [place] [address] OFFICE VISIT Date of Service: 12/04/24 MR#: [id number] Acct: [id number] Name: JOSE POLLACK Rep #: [id number] : 2000 Provider: DARIANA harper Age/Sex: 24/F Location[place] [facility] [place] Status: Signed Intake Vital Signs 09/26/24 08:30 12/04/24 08:07 12/04/24 08:52 12/04/24 08:52 Height 5 ft 8 in 5 ft 8 in 5 ft 8 in 5 ft 8 in Weight: 239 lb 5 oz BMI 36.3 BP 128/83 H Intake Visit Reasons: 30 WK OB Assistant Center Manager Required: No Is patient in pain?: No Allergies amoxicillin Allergy (Verified 12/04/24 08:51) Hives Penicillins Allergy (Verified 12/04/24 08:51) Rash Medications ???Medication ???Instructions ???Recorded ???Confirmed ???Type docosahexaenoic acid 200 mg mg PO 06/27/24 12/04/24 History capsule ( DHA) flash glucose scanning reader #1 ea 11/10/24 12/04/24 Rx (FreeStyle Rhonda 2 [place]) flash glucose sensor (FreeStyle #1 ea 11/28/24 12/04/24 Rx Rhonda 2 Sensor kit) Last Menstrual Period: 05/11/24 Zika: Zika virus screening: Negative : No PFSH PFSH Medical History Seasonal allergies Surgical History S/P wisdom tooth extraction S/P tonsillectomy and adenoidectomy Family History Brother Asthma Father Diabetes Type 2 Grandfather Diabetes Type 2 Social History adopted: No household members: spouse current occupational status: employed current occupation: [employer] current occupational exposures/hazards: No pets and animals: Yes pets and animals: dog(s) history of recent travel: Yes ([facility] - Apr 2024) out of state: No out of country: Yes sexually active: Yes Smoking Status: Never smoker alcohol intake: never substance use type: does not use well-balanced diet: daily or most days caffeine: No eating out: 1-3 times/week during the past year weight has: remained stable what type of physical activity do you participate in: walking frequency: 3-4 times per week duration: 15-30 minutes/day stephanie/gnosticist: Yazidism seatbelt use: always do you feel safe at home: Yes additional social history: : Joao Orosco History 1 Elective abortions Hx Para 0 Spontaneous abortions 0 Hx # Term Pregnancies Ectopic pregnancies Hx # Pregnancies Multiple births # of living children HPI 30 WK OB Details: JOSE POLLACK is a 24 year old who presents for routine OB visit. OB Visit ED Calculator Estimated Delivery Date Method Current WG Current Estimate 02/15/25 LMP (Certain) 29w 4d Other Estimates 02/19/25 Ultrasound #1 29w 0d Expected Delivery Route/Plan Labor Preferences- CB/BF classes: yes labor support person: Joao labor intervention preferences: [] pain management options preferred: [] cut cord/dad catch: [] : yes PP control planned: [] discussed possible routes of delivery and associated risks: [] special requests: [] Specific Issue/Plans Covid status: [] Flu vaccine: [] Tdap vaccine: [] Rhogam: [] LARC form signed: yes Problem list reviewed and updated with the most current plan of care details and appropriate orders placed. Relevant counseling for the gestational age provided. Continue routine care and follow up unless otherwise noted in visit notes/problem list details Initial Weight: Not Recorded Date -???-???-???-???-?? ?-???-???-???-???-? ??-???-???- EGA Weight BP Urine Prot -???-???-???-???-?? ?-???-???-???-???-? ??-???-???- Glucose FHR FuHt Pres Dilation -???-???-???-???-?? ?-???-???-???-???-? ??-???-???- Effaced St Visit Note 07/14/24 -???-???-???-???-?? ?-???-???-???-???-? ??-???-???- 9w 1d 226 lb 4 oz 146/95 -???-???-???-???-?? ?-???-???-???-???-? ??-???-???- 171 -???-???-???-???-?? ?-???-???-???-???-? ??-???-???- KW- CRL cons with dates. declines NIPT 08/16/24 -???-???-???-???-?? ?-???-???-???-???-? ??-???-???- 13w 6d 229 lb 8 oz 126/94 Negative -???-???-???-???-?? ?-???-???-???-???-? ??-???-???- Negative 160 -???-???-???-???-?? ?-???-???-???-???-? ??-???-???- JV- patient states that she is feeling better BP was elevated initially. ordering baseline PIH labs and she will start taking her bp at home. 09/14/24 -???-???-???-???-?? ?-???-???-???-???-? ??-???-???- 18w 0d 232 lb 6 oz 142/86 Negative -???-???-???-???-?? ?-???-???-???-???-? ??-???-???- Negative 154 -???-???-???-???-?? ?-???-???-???-???-? ??-???-???- JV- bp's at home are 120's/70's. not sure if feeling movem (more content not included)... Normal [facility] - Chemistry and C hemistry - challengeOrdered By: Nancy Wolfe on 11-24-2024 Glucose Ql (U) Negative [facility] - UrinalysisOrder ed By: Nancy Wolfe on 11-24-2024 Protein Ql (U) Negative [facility] Clinical Nursing Manager Office Visit Reporton 11-24-2024 Clinical Nursing Manager Office Visit Report [facility]'[address], [address] [place] [address] OFFICE VISIT Date of Service: 11/24/24 MR#: [id number] Acct: [id number] Name: JOSE POLLACK Rep #: [id number] : 2000 Provider: NELLY Jorgensen [facility] Age/Sex: 24/F [place] [facility] [place]: Signed Intake Vital Signs 11/09/24 09:00 11/20/24 10:49 11/24/24 14:38 Height 5 ft 8 in 5 ft 8 in 5 ft 8 in Weight: 237 lb 3 oz BMI 36.0 BP 134/89 H Intake Visit Reasons: 28wk ob Assistant Center Manager Required: No Is patient in pain?: No Allergies amoxicillin Allergy (Verified 11/24/24 14:38) Hives Penicillins Allergy (Verified 11/24/24 14:38) Rash Medications ???Medication ???Instructions ???Recorded ???Confirmed ???Type docosahexaenoic acid 200 mg mg PO 06/27/24 11/24/24 History capsule ( DHA) flash glucose scanning reader #1 ea 11/10/24 11/24/24 Rx (FreeStyle Rhonda 2 [place]) flash glucose sensor (FreeStyle #1 ea 11/10/24 11/24/24 Rx Rhonda 2 Sensor kit) Last Menstrual Period: 05/11/24 Zika: Zika virus screening: Negative : No Have you fallen in the past year?: No PFSH PFSH Medical History Seasonal allergies Surgical History S/P wisdom tooth extraction S/P tonsillectomy and adenoidectomy Family History Brother Asthma Father Diabetes Type 2 Grandfather Diabetes Type 2 Social History adopted: No household members: spouse current occupational status: employed current occupation: [employer] current occupational exposures/hazards: No pets and animals: Yes pets and animals: dog(s) history of recent travel: Yes ([facility] - Apr 2024) out of state: No out of country: Yes sexually active: Yes Smoking Status: Never smoker alcohol intake: never substance use type: does not use well-balanced diet: daily or most days caffeine: No eating out: 1-3 times/week during the past year weight has: remained stable what type of physical activity do you participate in: walking frequency: 3-4 times per week duration: 15-30 minutes/day stephanie/gnosticist: Yazidism seatbelt use: always do you feel safe at home: Yes additional social history: : Joao Greering History 1 Elective abortions Hx Para 0 Spontaneous abortions 0 Hx # Term Pregnancies Ectopic pregnancies Hx # Pregnancies Multiple births # of living children HPI 28wk ob Details: JOSE POLLACK is a 24 year old who presents for routine OB visit. OB Visit ED Calculator Estimated Delivery Date Method Current WG Current Estimate 02/15/25 LMP (Certain) 28w 1d Other Estimates 02/19/25 Ultrasound #1 27w 4d Expected Delivery Route/Plan Labor Preferences- CB/BF classes: yes labor support person: Joao labor intervention preferences: [] pain management options preferred: [] cut cord/dad catch: [] : yes PP control planned: [] discussed possible routes of delivery and associated risks: [] special requests: [] Specific Issue/Plans Covid status: [] Flu vaccine: [] Tdap vaccine: [] Rhogam: [] LARC form signed: yes Problem list reviewed and updated with the most current plan of care details and appropriate orders placed. Relevant counseling for the gestational age provided. Continue routine care and follow up unless otherwise noted in visit notes/problem list details Initial Weight: Not Recorded Date -???-???-???-???-?? ?-???-???-???-???-? ??-???-???- EGA Weight BP Urine Prot -???-???-???-???-?? ?-???-???-???-???-? ??-???-???- Glucose FHR FuHt Pres Dilation -???-???-???-???-?? ?-???-???-???-???-? ??-???-???- Effaced St Visit Note 07/14/24 -???-???-???-???-?? ?-???-???-???-???-? ??-???-???- 9w 1d 226 lb 4 oz 146/95 -???-???-???-???-?? ?-???-???-???-???-? ??-???-???- 171 -???-???-???-???-?? ?-???-???-???-???-? ??-???-???- KW- CRL cons with dates. declines NIPT 08/16/24 -???-???-???-???-?? ?-???-???-???-???-? ??-???-???- 13w 6d 229 lb 8 oz 126/94 Negative -???-???-???-???-?? ?-???-???-???-???-? ??-???-???- Negative 160 -???-???-???-???-?? ?-???-???-???-???-? ??-???-???- JV- patient states that she is feeling better BP was elevated initially. ordering baseline PIH labs and she will start taking her bp at home. 09/14/24 -???-???-???-???-?? ?-???-???-???-???-? ??-???-???- 18w 0d 232 lb 6 oz 142/86 Negative -???-???-???-???-?? ?-???-???-???-???-? ??-???-???- Negative 154 -???-???-???-???-?? ?-???-???-???-???-? ??-???-???- JV- bp's at home are 120's/70's. not sure if feeling movement yet. h (more content not included)... Normal [facility] Absolute lymphocyte countOrd ered By: Naomi Hendrix on 11-09-2024 Lymphocytes Auto (Unsp spec) [#/Vol] 1.77 10*3/uL 0.83-4.51 [facility] Absolute neutrophil countOrd ered By: Naomi Hendrix on 11-09-2024 Neutrophils (Bld) [#/Vol] 7.6 10*3/uL 2.0-7.7 [facility] Automated lymphocyte count a s percentage of total leukocytesOrdered By: Naomi Hendrix on 11-09-2024 Lymphocytes/100 WBC Auto (Unsp spec) 17.9 % Low 19-41 [facility] Basophil percentageOrdered B y: Naomi Hendrix on 11-09-2024 Basophils/100 WBC (Bld) 0.5 % 0-1 [facility] CBC W/Diff, Automatedon Absolute Lymph 1.77 X10 3/uL Normal 0.83-4.51 [facility] Comment on above: Performed By: #### L 509.8002, L501.0250, L3890.6006, L100.0100 #### [facility] [address] [place], [address] Absolute Neut 7.6 X10 3/uL Normal 2.0-7.7 [facility] Comment on above: Performed By: #### L 509.8002, L501.0250, L3890.6006, L100.0100 #### [facility] [address] [place], [address] Basophils/100 WBC (Bld) 0.5 % Normal 0-1 [facility] Comment on above: Performed By: #### L 509.8002, L501.0250, L3890.6006, L100.0100 #### [facility] [address] [place], [address] Eosinophils/100 WBC (Bld) 0.5 % Normal 0-5 [facility] Comment on above: Performed By: #### L 509.8002, L501.0250, L3890.6006, L100.0100 #### [facility] [address] [place], [address] Erythrocyte distribution width (RBC) [Ratio] 14.0 % Normal 11.6-14.6 [facility] Comment on above: Performed By: #### L 509.8002, L501.0250, L3890.6006, L100.0100 #### [facility] [address] [place], [address] Hematocrit (Bld) [Volume fraction] 38.4 % Normal 37-47 [facility] Comment on above: Performed By: #### L 509.8002, L501.0250, L3890.6006, L100.0100 #### [facility] [address] [place], [address] Hemoglobin (Bld) [Mass/Vol] 12.7 g/dL Normal 12.0-15.0 [facility] Comment on above: Performed By: #### L 509.8002, L501.0250, L3890.6006, L100.0100 #### [facility] [address] [place], [address] IG% 0.700 Normal 0.0-0.9 [facility] Comment on above: Result Comment: IG% - Immature Granulocytes (promyelocytes, myelocytes and metamyelocytes) > 1% indicates that a LEFT SHIFT is Present. Performed By: #### L 509.8002, L501.0250, L3890.6006, L100.0100 #### [facility] [address] [place], [address] Lymphocytes/100 WBC (Bld) 17.9 % Low 19-41 [facility] Comment on above: Performed By: #### L 509.8002, L501.0250, L3890.6006, L100.0100 #### [facility] [address] [place], [address] MCH (RBC) [Entitic mass] 30.9 pg Normal 27.0-32.0 [facility] Comment on above: Performed By: #### L 509.8002, L501.0250, L3890.6006, L100.0100 #### [facility] [address] [place], [address] MCHC (RBC) [Mass/Vol] 33.1 g/dL Normal 32-36 [facility] Comment on above: Performed By: #### L 509.8002, L501.0250, L3890.6006, L100.0100 #### [facility] [address] [place], [address] MCV (RBC) [Entitic vol] 93.4 fL Normal 81-99 [facility] Comment on above: Performed By: #### L 509.8002, L501.0250, L3890.6006, L100.0100 #### [facility] [address] [place], [address] Monocytes/100 WBC (Bld) 3.5 % Normal 0-10 [facility] Comment on above: Performed By: #### L 509.8002, L501.0250, L3890.6006, L100.0100 #### [facility] [address] [place], [address] Neutrophils/100 WBC (Bld) 76.9 % High 47-70 [facility] Comment on above: Performed By: #### L 509.8002, L501.0250, L3890.6006, L100.0100 #### [facility] [address] [place], [address] Nucleated RBC (Bld) [#/Vol] 0 10*3/uL Normal 0-5 [facility] Comment on above: Performed By: #### L 509.8002, L501.0250, L3890.6006, L100.0100 #### [facility] [address] [place], [address] Platelet mean volume (Bld) [Entitic vol] 10.6 fL Normal 6.2-12.0 [facility] Comment on above: Performed By: #### L 509.8002, L501.0250, L3890.6006, L100.0100 #### [facility] [address] [place], [address] Platelets (Bld) [#/Vol] 295 10*3/uL Normal 150-450 [facility] Comment on above: Performed By: #### L 509.8002, L501.0250, L3890.6006, L100.0100 #### [facility] [address] [place], [address] RBC (Bld) [#/Vol] 4.11 10*6/uL Low 4.2-5.4 [facility] Comment on above: Performed By: #### L 509.8002, L501.0250, L3890.6006, L100.0100 #### [facility] [address] [place], [address] RDW SD 47.6 fl High 35.1-43.9 [facility] Comment on above: Performed By: #### L 509.8002, L501.0250, L3890.6006, L100.0100 #### [facility] [address] [place], [address] WBC (Bld) [#/Vol] 9.9 10*3/uL Normal 4.4-11.0 [facility] Comment on above: Performed By: #### L 509.8002, L501.0250, L3890.6006, L100.0100 #### [facility] [address] [place], [address] Eosinophil percentageOrdered By: Naomi Hendrix on 11-09-2024 Eosinophils/100 WBC (Bld) 0.5 % 0-5 [facility] Erythrocyte distribution wid th ratioOrdered By: Naomi Hendrix on 11-09-2024 Erythrocyte distribution width (RBC) [Ratio] 14.0 % 11.6-14.6 [facility] Erythrocyte distribution wid th standard deviationOrdered By: Naomi Hendrix on 11-09-2024 Erythrocyte distribution width (RBC) [Ratio] 47.6 fl High 35.1-43.9 [facility] Glucose Challenge Gest 1H 50 maryann 11-09-2024 GLU GEST 50g 1H 181 mg/dL High 70-140 [facility] Comment on above: Performed By: #### L 509.8002, L501.0250, L3890.6006, L100.0100 #### [facility] [address] [facility] [place], [place], [id number] Glucose measurement at 2 leandro rs post-dose gestational glucose tolerance testOrdered By: Naomi Hendrix on 11-09-2024 Glucose [Mass/Vol] 181 mg/dL High 70-140 [facility] HIVon 11-09-2024 HIV Non-Reactive Normal Nonreactive [facility] Comment on above: Result Comment: Non- Reactive Reactive Repeatedly reactive samples must be confirmed according to CDC recommended confirmatory algorithms. The subresults for either HIVAG or AHIV can be used as an aid in the selection of the confirmation algorithm for reactive samples. Send out specimens with Reactive results to [facility] for confirmation. Order the HIV antibody detection and differentiation: lc#[id number] Performed By: #### L 509.8002, L501.0250, L3890.6006, L100.0100 #### [facility] [address] [facility] [place], [place], [id number] Hematocrit Auto (Bld) [Volum e fraction]Ordered By: Naomi Hendrix on 11-09-2024 Hematocrit (Bld) [Volume fraction] 38.4 % 37-47 [facility] Hemoglobin measurementOrdere d By: Naomi Hendrix on 11-09-2024 Hemoglobin (Bld) [Mass/Vol] 12.7 g/dL 12.0-15.0 [facility] Immature granulocytes/100 WB C Auto (Bld)Ordered By: Naomi Hendrix on 11-09-2024 Immature granulocytes/100 WBC (Bld) 0.700 % 0.0-0.9 [facility] Comment on above: IG% - Immature Granu locytes (promyelocytes, myelocytes and metamyelocytes) > 1% indicates that a LEFT SHIFT is Present. Laboratory - Chemistry and C hemistry - challengeOrdered By: Kiley George on 11-09-2024 Glucose Ql (U) Negative [facility] - UrinalysisOrder ed By: Kiley George on 11-09-2024 Protein Ql (U) Negative [facility] MCV (mean corpuscular volume ) determinationOrdered By: Naomi Hendrix on 11-09-2024 MCV (RBC) [Entitic vol] 93.4 fL 81-99 [facility] Mean corpuscular hemoglobin (MCH) determinationOrdered By: Naomi Hendrix on 11-09-2024 MCH (RBC) [Entitic mass] 30.9 pg 27.0-32.0 [facility] Mean corpuscular hemoglobin concentration (MCHC) determinationOrdered By: Naomi Hendrix on 11-09-2024 MCHC (RBC) [Mass/Vol] 33.1 g/dL 32-36 [facility] Mean platelet volume determi nationOrdered By: Naomi Hendrix on 11-09-2024 Platelet mean volume (Bld) [Entitic vol] 10.6 fL 6.2-12.0 [facility] Monocyte percentageOrdered B y: Naomi Hendrix on 11-09-2024 Monocytes/100 WBC (Bld) 3.5 % 0-10 [facility] Neutrophil percentageOrdered By: Naomi Hendrix on 11-09-2024 Neutrophils/100 WBC (Bld) 76.9 % High 47-70 [facility] No Panel InformationOrdered By: Naomi Hendrix on 11-09-2024 HIV (1&2) Antibody Non-Reactive Nonreactive [facility] Comment on above: Non-ReactiveReactive Repeatedly reactive samples must be confirmed according to CDC recommended confirmatory algorithms. The subresults for either HIVAG or AHIV can be used as an aid in the selection of the confirmation algorithm for reactive samples.Send out specimens with Reactive results to [facility] for confirmation.Order the HIV antibody detection and differentiation: #[id number] Nucleated red blood cell per centageOrdered By: Naomi Hendrix on 11-09-2024 Nucleated RBC/100 WBC (Bld) [Ratio] 0 % 0-5 [facility] Clinical Nursing Manager Office Visit Reporton 11-09-2024 Clinical Nursing Manager Office Visit Report [facility]'[address], [address] [place] [address] OFFICE VISIT Date of Service: 11/09/24 MR#: [id number] Acct: [id number] Name: JOSE POLLACK Rep #: [id number] : 2000 Provider: Dr. Kiley Anderson DO Age/Sex: 24/F [place] [facility] [place] Status: Signed Intake Vital Signs 08/16/24 11:32 08/16/24 12:02 10/11/24 08:36 11/09/24 09:00 Height 5 ft 8 in 5 ft 8 in 5 ft 8 in 5 ft 8 in Weight: 237 lb 9 oz BMI 36.1 BP 131/84 H Intake Visit Reasons: 26wk ob/glucose Assistant Center Manager Required: No Is patient in pain?: No Allergies amoxicillin Allergy (Verified 11/09/24 09:00) Hives Penicillins Allergy (Verified 11/09/24 09:00) Rash Medications ???Medication ???Instructions ???Recorded ???Confirmed ???Type docosahexaenoic acid 200 mg mg PO 06/27/24 11/09/24 History capsule ( DHA) Last Menstrual Period: 05/11/24 Zika: Zika virus screening: Negative : No PFSH PFSH Medical History Seasonal allergies Surgical History S/P wisdom tooth extraction S/P tonsillectomy and adenoidectomy Family History Brother Asthma Father Diabetes Type 2 Grandfather Diabetes Type 2 Social History adopted: No household members: spouse current occupational status: employed current occupation: [employer] current occupational exposures/hazards: No pets and animals: Yes pets and animals: dog(s) [facility] out of state: No out of country: Yes sexually active: Yes Smoking Status: Never smoker alcohol intake: never substance use type: does not use well-balanced diet: daily or most days caffeine: No eating out: 1-3 times/week during the past year weight has: remained stable what type of physical activity do you participate in: walking frequency: 3-4 times per week duration: 15-30 minutes/day stephanie/gnosticist: Yazidism seatbelt use: always do you feel safe at home: Yes additional social history: : Joao Orosco History 1 Elective abortions Hx Para 0 Spontaneous abortions 0 Hx # Term Pregnancies Ectopic pregnancies Hx # Pregnancies Multiple births # of living children HPI 26wk ob/glucose Details: JOSE POLLACK is a 24 year old who presents for routine OB visit. OB Visit ED Calculator Estimated Delivery Date Method Current WG Current Estimate 02/15/25 LMP (Certain) 26w 0d Other Estimates 02/19/25 Ultrasound #1 25w 3d Expected Delivery Route/Plan Labor Preferences- CB/BF classes: yes labor support person: Joao labor intervention preferences: [] pain management options preferred: [] cut cord/dad catch: [] : yes PP control planned: [] discussed possible routes of delivery and associated risks: [] special requests: [] Specific Issue/Plans Covid status: [] Flu vaccine: [] Tdap vaccine: [] Rhogam: [] LARC form signed: yes Problem list reviewed and updated with the most current plan of care details and appropriate orders placed. Relevant counseling for the gestational age provided. Continue routine care and follow up unless otherwise noted in visit notes/problem list details Initial Weight: Not Recorded Date -???-???-???-???-?? ?-???-???-???-???-? ??-???-???- EGA Weight BP Urine Prot -???-???-???-???-?? ?-???-???-???-???-? ??-???-???- Glucose FHR FuHt Pres Dilation -???-???-???-???-?? ?-???-???-???-???-? ??-???-???- Effaced St Visit Note 07/14/24 -???-???-???-???-?? ?-???-???-???-???-? ??-???-???- 9w 1d 226 lb 4 oz 146/95 -???-???-???-???-?? ?-???-???-???-???-? ??-???-???- 171 -???-???-???-???-?? ?-???-???-???-???-? ??-???-???- KW- CRL cons with dates. declines NIPT 08/16/24 -???-???-???-???-?? ?-???-???-???-???-? ??-???-???- 13w 6d 229 lb 8 oz 126/94 Negative -???-???-???-???-?? ?-???-???-???-???-? ??-???-???- Negative 160 -???-???-???-???-?? ?-???-???-???-???-? ??-???-???- JV- patient states that she is feeling better BP was elevated initially. ordering baseline PIH labs and she will start taking her bp at home. 09/14/24 -???-???-???-???-?? ?-???-???-???-???-? ??-???-???- 18w 0d 232 lb 6 oz 142/86 Negative -???-???-???-???-?? ?-???-???-???-???-? ??-???-???- Negative 154 -???-???-???-???-?? ?-???-???-???-???-? ??-???-???- JV- bp's at home are 120's/70's. not sure if feeling movement yet. has anatomy scan 09/21. She will bring in her cuff from home next visit to compare. repeat bp was the same 09/26/24 -???-???-???-???-?? ?-???-??? (more content not included)... Normal [facility] Platelet countOrdered By: Natalio Hendrix on 11-09-2024 Platelets (Bld) [#/Vol] 295 10*3/uL 150-450 [facility] RBC Auto (Bld) [#/Vol]Ordere d By: Naomi Hendrix on 11-09-2024 RBC (Bld) [#/Vol] 4.11 10*6/uL Low 4.2-5.4 [facility] Syphilis Antibodieson 2024 Syphilis Abs Non-Reactive Normal Nonreactive [facility] Comment on above: Performed By: #### L 509.8002, L501.0250, L3890.6006, L100.0100 #### [facility] [address] [place], [place] [address]sh[place], [address] White blood cell (WBC) count Ordered By: Naomi Hendrix on 11-09-2024 WBC (Bld) [#/Vol] 9.9 10*3/uL 4.4-11.0 [facility] - Chemistry and C hemistry - challengeOrdered By: Naomi Hendrix on 10-11-2024 Glucose Ql (U) Negative [facility] - UrinalysisOrder ed By: Naomi Hendrix on 10-11-2024 Protein Ql (U) Negative [facility] Clinical Nursing Manager Office Visit Reporton 10-11-2024 Clinical Nursing Manager [facility] [address] [place] [address], [address] [place] [address] OFFICE VISIT Date of Service: 10/11/24 MR#: [id number] Acct: [id number] Name: JOSE POLLACK Rep #: [id number] : 2000 Provider: DARIANA harper Age/Sex: 24/F [place] [facility] [place] Status: Signed Intake Vital Signs 08/16/24 11:32 10/02/24 08:24 10/11/24 08:36 Height 5 ft 8 in 5 ft 8 in 5 ft 8 in Weight: 235 lb 8 oz BMI 35.8 BP 128/84 H Intake Visit Reasons: 22wk ob Chief Complaint: 22 Week OB Assistant Center Manager Required: No Is patient in pain?: No Allergies amoxicillin Allergy (Verified 10/11/24 08:38) Hives Penicillins Allergy (Verified 10/11/24 08:38) Rash Medications ???Medication ???Instructions ???Recorded ???Confirmed ???Type docosahexaenoic acid 200 mg mg PO 06/27/24 10/11/24 History capsule ( DHA) Last Menstrual Period: 05/11/24 Zika: Zika virus screening: Negative : No PFSH PFSH Medical History Seasonal allergies Surgical History S/P wisdom tooth extraction S/P tonsillectomy and adenoidectomy Family History Brother Asthma Father Diabetes Type 2 Grandfather Diabetes Type 2 Social History adopted: No household members: spouse current occupational status: employed current occupation: [employer] current occupational exposures/hazards: No pets and animals: Yes pets and animals: dog(s) history of recent travel: Yes ([facility] - Apr 2024) out of state: No out of country: Yes sexually active: Yes Smoking Status: Never smoker alcohol intake: never substance use type: does not use well-balanced diet: daily or most days caffeine: No eating out: 1-3 times/week during the past year weight has: remained stable what type of physical activity do you participate in: walking frequency: 3-4 times per week duration: 15-30 minutes/day stephanie/gnosticist: Yazidism seatbelt use: always do you feel safe at home: Yes additional social history: : Joao Orosco History 1 Elective abortions Hx Para 0 Spontaneous abortions 0 Hx # Term Pregnancies Ectopic pregnancies Hx # Pregnancies Multiple births # of living children HPI 22wk ob Details: JOSE POLLACK is a 24 year old who presents for routine OB visit. OB Visit ED Calculator Estimated Delivery Date Method Current WG Current Estimate 02/15/25 LMP (Certain) 21w 6d Other Estimates 02/19/25 Ultrasound #1 21w 2d Expected Delivery Route/Plan Labor Preferences- CB/BF classes: yes labor support person: Joao labor intervention preferences: [] pain management options preferred: [] cut cord/dad catch: [] : yes PP control planned: [] discussed possible routes of delivery and associated risks: [] special requests: [] Specific Issue/Plans Covid status: [] Flu vaccine: [] Tdap vaccine: [] Rhogam: [] LARC form signed: yes Problem list reviewed and updated with the most current plan of care details and appropriate orders placed. Relevant counseling for the gestational age provided. Continue routine care and follow up unless otherwise noted in visit notes/problem list details Initial Weight: Not Recorded Date -???-???-???-???-?? ?-???-???-???-???-? ??-???-???- EGA Weight BP Urine Prot -???-???-???-???-?? ?-???-???-???-???-? ??-???-???- Glucose FHR FuHt Pres Dilation -???-???-???-???-?? ?-???-???-???-???-? ??-???-???- Effaced St Visit Note 07/14/24 -???-???-???-???-?? ?-???-???-???-???-? ??-???-???- 9w 1d 226 lb 4 oz 146/95 -???-???-???-???-?? ?-???-???-???-???-? ??-???-???- 171 -???-???-???-???-?? ?-???-???-???-???-? ??-???-???- KW- CRL cons with dates. declines NIPT 08/16/24 -???-???-???-???-?? ?-???-???-???-???-? ??-???-???- 13w 6d 229 lb 8 oz 126/94 Negative -???-???-???-???-?? ?-???-???-???-???-? ??-???-???- Negative 160 -???-???-???-???-?? ?-???-???-???-???-? ??-???-???- JV- patient states that she is feeling better BP was elevated initially. ordering baseline [facility] labs and she will start taking her bp at home. 09/14/24 -???-???-???-???-?? ?-???-???-???-???-? ??-???-???- 18w 0d 232 lb 6 oz 142/86 Negative -???-???-???-???-?? ?-???-???-???-???-? ??-???-???- Negative 154 -???-???-???-???-?? ?-???-???-???-???-? ??-???-???- JV- bp's at home are 120's/70's. not sure if feeling movement yet. has anatomy scan 09/21. She will bring in her cuff from home next visit to compare. repeat bp was the same 09/26/24 -???-???-???-???-?? ?-???-???-???-???-? ??-???-???- 19w (more content not included)... Normal [facility] Clinical Nursing Manager Office Visit Reporton 10-02-2024 Clinical Nursing Manager Office Visit Report [facility]'s [address], [address] [place] [address] OFFICE VISIT Date of Service: 10/02/24 MR#: [id number] Acct: [id number] Name: JOSE POLLACK Rep #: [id number] : 2000 Provider: Dr. Charline bolton MD Age/Sex: 24/F [place] [facility] [place] Status: Signed Intake Vital Signs 09/26/24 08:30 09/27/24 11:52 10/02/24 08:24 10/02/24 08:38 Height 5 ft 8 in 5 ft 8 in 5 ft 8 in Weight: 234 lb 2 oz 234 lb BMI 35.6 BP 140/86 H 140/86 H Intake Visit Reasons: 20wk OB, BP check, repeat labs Assistant Center Manager Required: No Is patient in pain?: No Allergies amoxicillin Allergy (Verified 10/02/24 08:18) Hives Penicillins Allergy (Verified 10/02/24 08:18) Rash Medications ???Medication ???Instructions ???Recorded ???Confirmed ???Type docosahexaenoic acid 200 mg mg PO 06/27/24 10/02/24 History capsule ( DHA) Last Menstrual Period: 05/11/24 Zika: Zika virus screening: Negative : No PFSH PFSH Medical History Seasonal allergies Surgical History S/P wisdom tooth extraction S/P tonsillectomy and adenoidectomy Family History Brother Asthma Father Diabetes Type 2 Grandfather Diabetes Type 2 Social History adopted: No household members: spouse current occupational status: employed current occupation: [employer] current occupational exposures/hazards: No pets and animals: Yes pets and animals: dog(s) history of recent travel: Yes ([facility] - Apr 2024) out of state: No out of country: Yes sexually active: Yes Smoking Status: Never smoker alcohol intake: never substance use type: does not use well-balanced diet: daily or most days caffeine: No eating out: 1-3 times/week during the past year weight has: remained stable what type of physical activity do you participate in: walking frequency: 3-4 times per week duration: 15-30 minutes/day stephanie/gnosticist: Yazidism seatbelt use: always do you feel safe at home: Yes additional social history: : Joao Orosco History 1 Elective abortions Hx Para 0 Spontaneous abortions 0 Hx # Term Pregnancies Ectopic pregnancies Hx # Pregnancies Multiple births # of living children HPI 20wk OB, BP check, repeat labs Details: JOSE POLLACK is a 24 year old who presents for routine OB visit. OB Visit ED Calculator Estimated Delivery Date Method Current WG Current Estimate 02/15/25 LMP (Certain) 20w 4d Other Estimates 02/19/25 Ultrasound #1 20w 0d Expected Delivery Route/Plan Labor Preferences- CB/BF classes: [] labor support person: [] labor intervention preferences: [] pain management options preferred: [] cut cord/dad catch: [] : [] PP control planned: [] discussed possible routes of delivery and associated risks: [] special requests: [] Specific Issue/Plans Covid status: [] Flu vaccine: [] Tdap vaccine: [] Rhogam: [] LARC form signed: [] Problem list reviewed and updated with the most current plan of care details and appropriate orders placed. Relevant counseling for the gestational age provided. Continue routine care and follow up unless otherwise noted in visit notes/problem list details Initial Weight: Not Recorded Date -???-???-???-???-?? ?-???-???-???-???-? ??-???-???- EGA Weight BP Urine Prot -???-???-???-???-?? ?-???-???-???-???-? ??-???-???- Glucose FHR FuHt Pres Dilation -???-???-???-???-?? ?-???-???-???-???-? ??-???-???- Effaced St Visit Note 07/14/24 -???-???-???-???-?? ?-???-???-???-???-? ??-???-???- 9w 1d 226 lb 4 oz 146/95 -???-???-???-???-?? ?-???-???-???-???-? ??-???-???- 171 -???-???-???-???-?? ?-???-???-???-???-? ??-???-???- KW- CRL cons with dates. declines NIPT 08/16/24 -???-???-???-???-?? ?-???-???-???-???-? ??-???-???- 13w 6d 229 lb 8 oz 126/94 Negative -???-???-???-???-?? ?-???-???-???-???-? ??-???-???- Negative 160 -???-???-???-???-?? ?-???-???-???-???-? ??-???-???- JV- patient states that she is feeling better BP was elevated initially. ordering baseline [facility] labs and she will start taking her bp at home. 09/14/24 -???-???-???-???-?? ?-???-???-???-???-? ??-???-???- 18w 0d 232 lb 6 oz 142/86 Negative -???-???-???-???-?? ?-???-???-???-???-? ??-???-???- Negative 154 -???-???-???-???-?? ?-???-???-???-???-? ??-???-???- JV- bp's at home are 120's/70's. not sure if feeling movement yet. has anatomy scan 09/21. She will bring in her cuff from home next visit to compare. repeat bp was the same 09/26/24 -???-???-???-???-?? ? (more content not included)... Normal [facility] 24 HR UR Creatinine Clearanc yeny 09-28-2024 CREAT CLEARANCE 262 ml/min High 100-200 [facility] Comment on above: Performed By: #### L 501.1105, L502.000, L500.9000, L500.4507 ####[facility] [address] [place], [place], [id number] Creatinine [Mass/Vol] 0.5 mg/dL Low 0.6-1.0 [facility] Comment on above: Performed By: #### L 501.1105, L502.000, L500.9000, L500.4507 ####[facility] [address] [place], [place], [id number] RANDOM UR TV 3125.0 ML Normal [facility] Comment on above: Performed By: #### L 501.1105, L502.000, L500.9000, L500.4507 ####[facility] [address] [place], [place], [address] 24 HR Urine Creatinineon UR.CREAT/24hr 2034.4 mg/24 hr High 740.0-1540.0 [facility] Comment on above: Performed By: #### L 501.1105, L502.000, L500.9000, L500.4507 ####[facility] [address] [place], [address] URINE CREAT 65.10 mg/dL Normal 28.00-217.00 [facility] Comment on above: Performed By: #### L 501.1105, L502.000, L500.9000, L500.4507 ####[facility] [address] [place], [place], [phone] 24 hour urine protein measur ementOrdered By: Naomi Hendrix on 09-28-2024 24 hour urine protein measurement 3125 mL [facility] 24 hour urine protein measur ement (mass/volume)Ordered By: Naomi Hendrix on 09-28-2024 Protein (24H U) [Mass/Vol] 7.7 mg/dL 0.0-11.8 [facility] 24 hour urine total protein measurement (mass/time)Ordered By: Naomi Hendrix on 09-28-2024 Protein (24H U) [Mass/Time] 240.6 mg/24HR High 0-151 [facility] Comment on above: Previous reported re sult: 239.1 mg/24HREdited by: RADHA on 09/28/24:1006 AMENDED REPORT 09/28/24 1006 24hr UR PROTEIN previously reported as: 239.1 H mg/24HR Glomerular filtration rate ( GFR) estimation/1.73 sq m using serum, plasma, or whole bOrdered By: Naomi Hendrix on 09-28-2024 GFR/1.73 sq M.predicted among non-blacks MDRD (S/P/Bld) [Vol rate/Area] 132 mL/min/{1.73_m2} >60 [facility] Comment on above: mL/min/1.73m2 CKD-EP I Creatinine Equation (2020) Laboratory - Specimen inform ationOrdered By: Naomi Hendrix on 09-28-2024 Collection duration (U) 24.0 HOURS 24.0-24.0 [facility] Protein, Urine 24HRon 2024 UR COLLECT TIME 24.0 HOURS Normal 24.0 [facility] Comment on above: Performed By: #### L 501.1105, L502.000, L500.9000, L500.4507 ####[facility] [address] [place], [place], [id number] UR TOTAL VOLUME 3125 mL Normal [facility] Comment on above: Performed By: #### L 501.1105, L502.000, L500.9000, L500.4507 ####[facility] [address] [place], [place], [id number] Renal creatinine clearance c alculated from serum or plasma and 24 hour urine creatiniOrdered By: Naomi Hendrix on 09-28-2024 Creatinine renal clearance (24H U+S/P) [Vol/Time] 262 ml/min High 100-200 [facility] Serum Creatinine AND GFRon 0 - Creatinine [Mass/Vol] 0.54 mg/dL Low 0.70-1.20 [facility] Comment on above: Performed By: #### L 501.1105, L502.000, L500.9000, L500.4507 ####[facility] [address] [place], [place], [phone] GFR/1.73 sq M.predicted among non-blacks MDRD (S/P/Bld) [Vol rate/Area] 132 mL/min/{1.73_m2} Normal >60 [facility] Comment on above: Result Comment: mL/m in/1.73m2 CKD-EPI Creatinine Equation (2020) Performed By: #### L 501.1105, L502.000, L500.9000, L500.4507 ####[facility] [address] [place], [address] Serum creatine measurementOr dered By: Naomi Hendrix on 09-28-2024 Creatinine [Mass/Vol] 0.5 mg/dL Low 0.6-1.0 [facility] Total urine volume measureme ntOrdered By: Naomi Hendrix on 09-28-2024 Specimen volume (U) 3125.0 ML [facility] Urine creatinine measurement (mass/volume)Ordered By: Naomi Simeon on 09-28-2024 Creatinine (U) [Mass/Vol] 65.10 mg/dL 28.00-217 .00 [facility] Comment on above: *Additional results available. Contact laboratory/see report* Laboratory - Chemistry and C hemistry - challengeOrdered By: Kiley George on 09-27-2024 Glucose Ql (U) Negative [facility] Laboratory - UrinalysisOrder ed By: Kiley George on 09-27-2024 Protein Ql (U) Negative [facility] Clinical Nursing Manager Office Visit Reporton 09-27-2024 Clinical Nursing Manager Office Visit Report [facility]'[address], [address] [place] [address] OFFICE VISIT Date of Service: 09/27/24 MR#: [id number] Acct: [id number] Name: JOSE POLLACK Rep #: [id number] : 2000 Provider: Dr. Kiley Anderson DO Age/Sex: 24/F [place] [facility] [place] Status: Signed Intake Vital Signs 09/26/24 08:30 09/27/24 11:28 09/27/24 11:52 Height 5 ft 8 in 5 ft 8 in 5 ft 8 in Weight: 233 lb 2 oz BMI 35.4 BP 136/84 H Intake Visit Reasons: Bp check Chief Complaint: BP check Assistant Center Manager Required: No Is patient in pain?: No Allergies amoxicillin Allergy (Verified 10/02/24 08:18) Hives Penicillins Allergy (Verified 10/02/24 08:18) Rash Medications ???Medication ???Instructions ???Recorded ???Confirmed ???Type docosahexaenoic acid 200 mg mg PO 06/27/24 10/02/24 History capsule ( DHA) Last Menstrual Period: 05/11/24 Zika: Zika virus screening: Negative : No Nurse's Note: Patient presents for a BP check. Patient states that she had some swelling of the hands and feet last PM. Patient states she has a headache now, denies any changes or spots in her vision. BP 136/84. PFSH PFSH Medical History Seasonal allergies Surgical History S/P wisdom tooth extraction S/P tonsillectomy and adenoidectomy Family History Brother Asthma Father Diabetes Type 2 Grandfather Diabetes Type 2 Social History adopted: No household members: spouse current occupational status: employed current occupation: [employer] current occupational exposures/hazards: No pets and animals: Yes pets and animals: dog(s) history of recent travel: Yes ([facility] - Apr 2024) out of state: No out of country: Yes sexually active: Yes Smoking Status: Never smoker alcohol intake: never substance use type: does not use well-balanced diet: daily or most days caffeine: No eating out: 1-3 times/week during the past year weight has: remained stable what type of physical activity do you participate in: walking frequency: 3-4 times per week duration: 15-30 minutes/day stephanie/gnosticist: Yazidism seatbelt use: always do you feel safe at home: Yes additional social history: : Joao Orosco History 1 Elective abortions Hx Para 0 Spontaneous abortions 0 Hx # Term Pregnancies Ectopic pregnancies Hx # Pregnancies Multiple births # of living children HPI Bp check Details: JOSE POLLACK is a 24 year old who presents for routine OB visit. OB Visit ED Calculator Estimated Delivery Date Method Current WG Current Estimate 02/15/25 LMP (Certain) 20w 5d Other Estimates 02/19/25 Ultrasound #1 20w 1d Expected Delivery Route/Plan Labor Preferences- CB/BF classes: [] labor support person: [] labor intervention preferences: [] pain management options preferred: [] cut cord/dad catch: [] : [] PP control planned: [] discussed possible routes of delivery and associated risks: [] special requests: [] Specific Issue/Plans Covid status: [] Flu vaccine: [] Tdap vaccine: [] Rhogam: [] LARC form signed: [] Problem list reviewed and updated with the most current plan of care details and appropriate orders placed. Relevant counseling for the gestational age provided. Continue routine care and follow up unless otherwise noted in visit notes/problem list details Initial Weight: Not Recorded Date -???-???-???-???-?? ?-???-???-???-???-? ??-???-???- EGA Weight BP Urine Prot -???-???-???-???-?? ?-???-???-???-???-? ??-???-???- Glucose FHR FuHt Pres Dilation -???-???-???-???-?? ?-???-???-???-???-? ??-???-???- Effaced St Visit Note 07/14/24 -???-???-???-???-?? ?-???-???-???-???-? ??-???-???- 9w 1d 226 lb 4 oz 146/95 -???-???-???-???-?? ?-???-???-???-???-? ??-???-???- 171 -???-???-???-???-?? ?-???-???-???-???-? ??-???-???- KW- CRL cons with dates. declines NIPT 08/16/24 -???-???-???-???-?? ?-???-???-???-???-? ??-???-???- 13w 6d 229 lb 8 oz 126/94 Negative -???-???-???-???-?? ?-???-???-???-???-? ??-???-???- Negative 160 -???-???-???-???-?? ?-???-???-???-???-? ??-???-???- JV- patient states that she is feeling better BP was elevated initially. ordering baseline [facility] labs and she will start taking her bp at home. 09/14/24 -???-???-???-???-?? ?-???-???-???-???-? ??-???-???- 18w 0d 232 lb 6 oz 142/86 Negative -???-???-???-???-?? ?-???-???-???-???-? ??-???-???- Negative 154 -???-???-???-???-?? ?-???-???-???-???-? ??-???-???- JV- bp's at home are 120's/70's. not (more content not included)... Normal [facility] Absolute lymphocyte countOrd ered By: Naomi Hendrix on 09-26-2024 Lymphocytes Auto (Unsp spec) [#/Vol] 2.07 10*3/uL 0.83-4.51 [facility] Absolute neutrophil countOrd ered By: Naomi Hendrix on 09-26-2024 Neutrophils (Bld) [#/Vol] 8.9 10*3/uL High 2.0-7.7 [facility] Anion gap in Serum or Plasma Ordered By: Naomi Hendrix on 09-26-2024 Anion gap [Moles/Vol] 14 mmol/L 5-15 [facility] Automated lymphocyte count a s percentage of total leukocytesOrdered By: Naomi Hendrix on 09-26-2024 Lymphocytes/100 WBC Auto (Unsp spec) 17.6 % Low 19-41 [facility] BUN/creatinine ratioOrdered By: Naomi Hendrix on 09-26-2024 Urea nitrogen/Creatinine [Mass ratio] 18.9 mg/mg 10-20 [facility] Basophil percentageOrdered B y: Naomi Hendrix on 09-26-2024 Basophils/100 WBC (Bld) 0.4 % 0-1 [facility] Bilirubin, totalOrdered By: Naomi Hendrix on 09-26-2024 Bilirubin [Mass/Vol] 0.22 mg/dL 0.00-1.30 [facility] CBC W/Diff, Automatedon 09-06 Absolute Lymph 2.07 X10 3/uL Normal 0.83-4.51 [facility] Comment on above: Performed By: #### L 100.0100, L501.0900, L500.4050 ####[facility] [address] [place], [address] Absolute Neut 8.9 X10 3/uL High 2.0-7.7 [facility] Comment on above: Performed By: #### L 100.0100, L501.0900, L500.4050 ####[facility] [address] [place], [address] Basophils/100 WBC (Bld) 0.4 % Normal 0-1 [facility] Comment on above: Performed By: #### L 100.0100, L501.0900, L500.4050 ####[facility] [address] [place], [address] Eosinophils/100 WBC (Bld) 0.5 % Normal 0-5 [facility] Comment on above: Performed By: #### L 100.0100, L501.0900, L500.4050 ####[facility] [address] [place], [address] Erythrocyte distribution width (RBC) [Ratio] 13.9 % Normal 11.6-14.6 [facility] Comment on above: Performed By: #### L 100.0100, L501.0900, L500.4050 ####[facility] [address] [place], [address] Hematocrit (Bld) [Volume fraction] 40.6 % Normal 37-47 [facility] Comment on above: Performed By: #### L 100.0100, L501.0900, L500.4050 ####[facility] [address] [place], [address] Hemoglobin (Bld) [Mass/Vol] 13.4 g/dL Normal 12.0-15.0 [facility] Comment on above: Performed By: #### L 100.0100, L501.0900, L500.4050 ####[facility] [address] [place], [address] IG% 0.700 Normal 0.0-0.9 [facility] Comment on above: Result Comment: IG% - Immature Granulocytes (promyelocytes, myelocytes and metamyelocytes) > 1% indicates that a LEFT SHIFT is Present. Performed By: #### L 100.0100, L501.0900, L500.4050 ####[facility] [address] [place], [address] Lymphocytes/100 WBC (Bld) 17.6 % Low 19-41 [facility] Comment on above: Performed By: #### L 100.0100, L501.0900, L500.4050 ####[facility] [address] [place], [address] MCH (RBC) [Entitic mass] 30.7 pg Normal 27.0-32.0 [facility] Comment on above: Performed By: #### L 100.0100, L501.0900, L500.4050 ####[facility] [address] [place], [address] MCHC (RBC) [Mass/Vol] 33.0 g/dL Normal 32-36 [facility] Comment on above: Performed By: #### L 100.0100, L501.0900, L500.4050 ####[facility] [address] [place], [address] MCV (RBC) [Entitic vol] 93.1 fL Normal 81-99 [facility] Comment on above: Performed By: #### L 100.0100, L501.0900, L500.4050 ####[facility] [address] [place], [address] Monocytes/100 WBC (Bld) 4.9 % Normal 0-10 [facility] Comment on above: Performed By: #### L 100.0100, L501.0900, L500.4050 ####[facility] [address] [place], [address] Neutrophils/100 WBC (Bld) 75.9 % High 47-70 [facility] Comment on above: Performed By: #### L 100.0100, L501.0900, L500.4050 ####[facility] [address] [place], [address] Nucleated RBC (Bld) [#/Vol] 0 10*3/uL Normal 0-5 [facility] Comment on above: Performed By: #### L 100.0100, L501.0900, L500.4050 ####[facility] [address] [place], [address] Platelet mean volume (Bld) [Entitic vol] 10.4 fL Normal 6.2-12.0 [facility] Comment on above: Performed By: #### L 100.0100, L501.0900, L500.4050 ####[facility] [address] [place], [address] Platelets (Bld) [#/Vol] 340 10*3/uL Normal 150-450 [facility] Comment on above: Performed By: #### L 100.0100, L501.0900, L500.4050 ####[facility] [address] [place], [address] RBC (Bld) [#/Vol] 4.36 10*6/uL Normal 4.2-5.4 [facility] Comment on above: Performed By: #### L 100.0100, L501.0900, L500.4050 ####[facility] [address] [place], [address] RDW SD 47.1 fl High 35.1-43.9 [facility] Comment on above: Performed By: #### L 100.0100, L501.0900, L500.4050 ####[facility] [address] [place], [address] WBC (Bld) [#/Vol] 11.8 10*3/uL High 4.4-11.0 [facility] Comment on above: Performed By: #### L 100.0100, L501.0900, L500.4050 ####[facility] [address] [place], [address] Carbon dioxide, total [Moles /volume] in Central venous bloodOrdered By: Naomi Hendrix on 09-26-2024 CO2 [Moles/Vol] 21.1 mmol/L 21.0-32.0 [facility] Chloride assayOrdered By: Natalio Hendrix on 09-26-2024 Chloride [Moles/Vol] 103 mmol/L 98-108 [facility] Comprehensive Metabolic Prof ilon 09-26-2024 Albumin [Mass/Vol] 4.1 g/dL Normal 3.5-5.0 [facility] Comment on above: Performed By: #### L 100.0100, L501.0900, L500.4050 ####[facility] [address] [place], [address] Albumin/Globulin [Mass ratio] 1.3 {ratio} Normal 0.9-2.4 [facility] Comment on above: Performed By: #### L 100.0100, L501.0900, L500.4050 ####[facility] [address] [place], [address] ALK PHOS 75 U/L Normal 35-104 [facility] Comment on above: Performed By: #### L 100.0100, L501.0900, L500.4050 ####[facility] [address] [place], [address] ALT [Catalytic activity/Vol] 15 U/L Normal <=34 [facility] Comment on above: Performed By: #### L 100.0100, L501.0900, L500.4050 ####[facility] [address] [place], [address] AST [Catalytic activity/Vol] 16 U/L Normal <=31 [facility] Comment on above: Performed By: #### L 100.0100, L501.0900, L500.4050 ####[facility] [address] [place], [address] Bilirubin [Mass/Vol] 0.22 mg/dL Normal 0.00-1.30 [facility] Comment on above: Performed By: #### L 100.0100, L501.0900, L500.4050 ####[facility] [address] [place], [address] BUN/CRE 18.9 RATIO Normal 10-20 [facility] Comment on above: Performed By: #### L 100.0100, L501.0900, L500.4050 ####[facility] [address] [place], [address] Calcium [Mass/Vol] 9.3 mg/dL Normal 7.6-11.0 [facility] Comment on above: Performed By: #### L 100.0100, L501.0900, L500.4050 ####[facility] [address] [place], [address] Chloride [Moles/Vol] 103 mmol/L Normal 98-108 [facility] Comment on above: Performed By: #### L 100.0100, L501.0900, L500.4050 ####[facility] [address] [place], [address] CO2 [Moles/Vol] 21.1 mmol/L Normal 21.0-32.0 [facility] Comment on above: Performed By: #### L 100.0100, L501.0900, L500.4050 ####[facility] [address] [place], [address] Creatinine [Mass/Vol] 0.46 mg/dL Low 0.70-1.20 [facility] Comment on above: Performed By: #### L 100.0100, L501.0900, L500.4050 ####[facility] [address] [place], [address] GAP 14 Normal 5-15 [facility] Comment on above: Performed By: #### L 100.0100, L501.0900, L500.4050 ####[facility] [address] [place], [address] GFR/1.73 sq M.predicted among non-blacks MDRD (S/P/Bld) [Vol rate/Area] 137 mL/min/{1.73_m2} Normal >60 [facility] Comment on above: Result Comment: mL/m in/1.73m2 CKD-EPI Creatinine Equation (2020) Performed By: #### L 100.0100, L501.0900, L500.4050 ####[facility] [address] [place], [address] Globulin (S) [Mass/Vol] 3.2 g/dL Normal 2.2-4.2 [facility] Comment on above: Performed By: #### L 100.0100, L501.0900, L500.4050 ####[facility] [facility] [address] [place], [address] Glucose [Mass/Vol] 87 mg/dL Normal 70-99 [facility] Comment on above: Performed By: #### L 100.0100, L501.0900, L500.4050 ####[facility] [address] [place], [address] Potassium [Moles/Vol] 3.6 mmol/L Normal 3.3-5.1 [facility] Comment on above: Performed By: #### L 100.0100, L501.0900, L500.4050 ####[facility] [address] [place], [address] Sodium [Moles/Vol] 138 mmol/L Normal 133-145 [facility] Comment on above: Performed By: #### L 100.0100, L501.0900, L500.4050 ####[facility] [address] [place], [address] T PROT 7.3 g/dL Normal 5.9-8.4 [facility] Comment on above: Performed By: #### L 100.0100, L501.0900, L500.4050 ####[facility] [address] [place], [address] Urea nitrogen [Mass/Vol] 9 mg/dL Normal 4-19 [facility] Comment on above: Performed By: #### L 100.0100, L501.0900, L500.4050 ####[facility] [address] [place], [address] Eosinophil percentageOrdered By: Naomi Hendrix on 09-26-2024 Eosinophils/100 WBC (Bld) 0.5 % 0-5 [facility] Erythrocyte distribution wid th ratioOrdered By: Naomi Hendrix on 09-26-2024 Erythrocyte distribution width (RBC) [Ratio] 13.9 % 11.6-14.6 [facility] Erythrocyte distribution wid th standard deviationOrdered By: Naomichino Hendrix on 09-26-2024 Erythrocyte distribution width (RBC) [Ratio] 47.1 fl High 35.1-43.9 [facility] Glomerular filtration rate ( GFR) estimation/1.73 sq m using serum, plasma, or whole bOrdered By: Naomi Hendrix on 09-26-2024 GFR/1.73 sq M.predicted among non-blacks MDRD (S/P/Bld) [Vol rate/Area] 137 mL/min/{1.73_m2} >60 [facility] Comment on above: mL/min/1.73m2 CKD-EP I Creatinine Equation (2020) Hematocrit Auto (Bld) [Volum e fraction]Ordered By: Naomi Hendrix on 09-26-2024 Hematocrit (Bld) [Volume fraction] 40.6 % 37-47 [facility] Hemoglobin measurementOrdere d By: Naomi Hendrix on 09-26-2024 Hemoglobin (Bld) [Mass/Vol] 13.4 g/dL 12.0-15.0 [facility] Immature granulocytes/100 WB C Auto (Bld)Ordered By: Naomi Hendrix on 09-26-2024 Immature granulocytes/100 WBC (Bld) 0.700 % 0.0-0.9 [facility] Comment on above: IG% - Immature Granu locytes (promyelocytes, myelocytes and metamyelocytes) > 1% indicates that a LEFT SHIFT is Present. Laboratory - Chemistry and C hemistry - challengeOrdered By: Naomi Hendrix on 09-26-2024 AST [Catalytic activity/Vol] 16 U/L <32 [facility] Glucose Ql (U) Negative [facility] Laboratory - UrinalysisOrder ed By: Naomi Hendrix on 09-26-2024 Protein Ql (U) Negative [facility] MCV (mean corpuscular volume ) determinationOrdered By: Naomi Hendrix on 09-26-2024 MCV (RBC) [Entitic vol] 93.1 fL 81-99 [facility] Mean corpuscular hemoglobin (MCH) determinationOrdered By: Naomi Hendrix on 09-26-2024 MCH (RBC) [Entitic mass] 30.7 pg 27.0-32.0 [facility] Mean corpuscular hemoglobin concentration (MCHC) determinationOrdered By: Naomi Hendrix on 09-26-2024 MCHC (RBC) [Mass/Vol] 33.0 g/dL 32-36 [facility] Mean platelet volume determi nationOrdered By: Naomi Hendrix on 09-26-2024 Platelet mean volume (Bld) [Entitic vol] 10.4 fL 6.2-12.0 [facility] Monocyte percentageOrdered B y: Naomi Hendrix on 09-26-2024 Monocytes/100 WBC (Bld) 4.9 % 0-10 [facility] Neutrophil percentageOrdered By: Naomi Hendrix on 09-26-2024 Neutrophils/100 WBC (Bld) 75.9 % High 47-70 [facility] Nucleated red blood cell per centageOrdered By: Naomi Hendrix on 09-26-2024 Nucleated RBC/100 WBC (Bld) [Ratio] 0 % 0-5 [facility] Clinical Nursing Manager Office Visit Reporton 09-26-2024 Clinical Nursing Manager Office Visit Report [facility] [address], [address] [place] [address] OFFICE VISIT Date of Service: 09/26/24 MR#: [id number] Acct: [id number] Name: JOSE POLLACK Rep #: [id number] : 2000 Provider: DARIANA harper Age/Sex: 24/F [place] [facility] [place] Status: Signed Intake Vital Signs 09/14/24 08:41 07/22/25 08:28 09/26/24 08:30 Height 5 ft 8 in 5 ft 8 in 5 ft 8 in Weight: 232 lb 6 oz 235 lb 2 oz BMI 35.3 35.7 BP 142/86 H 128/86 H Intake Visit Reasons: BP Check Assistant Center Manager Required: No Is patient in pain?: No Allergies amoxicillin Allergy (Verified 09/26/24 08:28) Hives Penicillins Allergy (Verified 09/26/24 08:28) Rash Medications ???Medication ???Instructions ???Recorded ???Confirmed ???Type docosahexaenoic acid 200 mg mg PO 06/27/24 09/26/24 History capsule ( DHA) Last Menstrual Period: 05/11/24 Zika: Zika virus screening: Negative : No Nurse's Note: Patient came into the office today for blood pressure check. According to last visit Dr. Haji wanted her to bring in her blood pressure monitor from home to compare blood pressure readings. She has been getting anywhere from 121-135/74-74-85 (1 90 diastolic reading). With machine in the office I got 2 readings low 140's/86 and 1 reading of 128/86. Her machine several times and with either arm I was getting readings in the 160's/90-100's. She states the machine from home was purchased this year. She denies vision changes and she has only had 1 episode of a headache. is no longer giving out blood pressure monitors for home. After discussing with Naomi it was decided to get pre-e labs and get a new blood pressure monitor with a larger cuff. Advised to call if she gets blood pressures over 140/90 or headaches/vision changes or adbdominal pain. Patient agreed to plan. [facility] PFS Medical History Seasonal allergies Surgical History S/P wisdom tooth extraction S/P tonsillectomy and adenoidectomy Family History Brother Asthma Father Diabetes Type 2 Grandfather Diabetes Type 2 Social History adopted: No household members: spouse current occupational status: employed current occupation: [employer] current occupational exposures/hazards: No pets and animals: Yes pets and animals: dog(s) history of recent travel: Yes ([facility] - Apr 2024) out of state: No out of country: Yes sexually active: Yes Smoking Status: Never smoker alcohol intake: never substance use type: does not use well-balanced diet: daily or most days caffeine: No eating out: 1-3 times/week during the past year weight has: remained stable what type of physical activity do you participate in: walking frequency: 3-4 times per week duration: 15-30 minutes/day stephanie/gnosticist: Yazidism seatbelt use: always do you feel safe at home: Yes additional social history: : Joao [place] History 1 Elective abortions Hx Para 0 Spontaneous abortions 0 Hx # Term Pregnancies Ectopic pregnancies Hx # Pregnancies Multiple births # of living children HPI BP Check Details: JOSE POLLACK is a 24 year old who presents for routine OB visit. OB Visit ED Calculator Estimated Delivery Date Method Current WG Current Estimate 02/15/25 LMP (Certain) 19w 5d Other Estimates 02/19/25 Ultrasound #1 19w 1d Expected Delivery Route/Plan Labor Preferences- CB/BF classes: [] labor support person: [] labor intervention preferences: [] pain management options preferred: [] cut cord/dad catch: [] : [] PP control planned: [] discussed possible routes of delivery and associated risks: [] special requests: [] Specific Issue/Plans Covid status: [] Flu vaccine: [] Tdap vaccine: [] Rhogam: [] LARC form signed: [] Problem list reviewed and updated with the most current plan of care details and appropriate orders placed. Relevant counseling for the gestational age provided. Continue routine care and follow up unless otherwise noted in visit notes/problem list details Initial Weight: Not Recorded Date -???-???-???-???-?? ?-???-???-???-???-? ??-???-???- EGA Weight BP Urine Prot -???-???-???-???-?? ?-???-???-???-???-? ??-???-???- Glucose FHR FuHt Pres Dilation -???-???-???-???-?? ?-???-???-???-???-? ??-???-???- Effaced St Visit Note 07/14/24 -???-???-???-???-?? ?-???-???-???-???-? ??-???-???- 9w 1d 226 lb 4 oz 146/95 -???-???-???-???-?? ?-???-???-???-???-? ??-???-???- 171 -???-???-???-???-?? ?-???-???-?? (more content not included)... Normal [facility] Platelet countOrdered By: Natalio Hendrix on 09-26-2024 Platelets (Bld) [#/Vol] 340 10*3/uL 150-450 [facility] Potassium measurement (mass/ volume)Ordered By: Naomi Hendrix on 09-26-2024 Potassium (Unsp spec) [Mass/Vol] 3.6 mmol/L 3.3-5.1 [facility] Protein+Creatinine Ratio,Uri neon 09-26-2024 PROT:CRE RATIO 405 mg/g CRE High 0-200 [facility] Comment on above: Performed By: #### L 100.0100, L501.0900, L500.4050 ####[facility] [address] [place], [address] UR CREAT 22.20 mg/dL Low 28.00-217.00 [facility] Comment on above: Performed By: #### L 100.0100, L501.0900, L500.4050 ####[facility] [address] [place], [address] RBC Auto (Bld) [#/Vol]Ordere d By: Naomi Hendrix on 09-26-2024 RBC (Bld) [#/Vol] 4.36 10*6/uL 4.2-5.4 [facility] Random urine creatinine jaquelin urement (mass/volume)Ordered By: Naomi Hendrix on 09-26-2024 Creatinine Unsp time (U) [Mass/Vol] 22.20 mg/dL Low 28.00-217.00 [facility] Serum creatinine measurement (mass/volume)Ordered By: Naomi Hendrix on 09-26-2024 Creatinine [Mass/Vol] 0.46 mg/dL Low 0.70-1.20 [facility] Serum globulin measurementOr dered By: Naomi Hendrix on 09-26-2024 Globulin (S) [Mass/Vol] 3.2 g/dL 2.2-4.2 [facility] Serum glucose measurement (m ass/volume)Ordered By: Naomi Hendrix on 09-26-2024 Glucose [Mass/Vol] 87 mg/dL 70-99 [facility] Serum or plasma alanine martins otransferase (ALT) measurementOrdered By: Naomi Hendrix on 09-26-2024 ALT [Catalytic activity/Vol] 15 U/L <35 [facility] Serum or plasma albumin jaquelin urement (mass/volume)Ordered By: Naomi Hendrix on 09-26-2024 Albumin [Mass/Vol] 4.1 g/dL 3.5-5.0 [facility] Serum or plasma albumin/glob ulin mass ratioOrdered By: Naomi Hendrix on 09-26-2024 Albumin/Globulin [Mass ratio] 1.3 {ratio} 0.9-2.4 [facility] Serum or plasma alkaline ken sphatase measurementOrdered By: Naomi Hendrix on 09-26-2024 ALP [Catalytic activity/Vol] 75 U/L 35-104 [facility] Serum or plasma calcium jaquelin urement (mass/volume)Ordered By: Naomi Hendrix on 09-26-2024 Calcium [Mass/Vol] 9.3 mg/dL 7.6-11.0 [facility] Serum or plasma urea nitroge n measurement (mass/volume)Ordered By: Naomi Hendrix on 09-26-2024 Urea nitrogen [Mass/Vol] 9 mg/dL 4-19 [facility] Sodium levelOrdered By: Abel Hendrix on 09-26-2024 Sodium [Moles/Vol] 138 mmol/L 133-145 [facility] Total proteinOrdered By: Vidal cesar Simeon on 09-26-2024 Protein [Mass/Vol] 7.3 g/dL 5.9-8.4 [facility] Urine protein measurement (m ass/volume)Ordered By: Naomi Hendrix on 09-26-2024 Protein (U) [Mass/Vol] 9.0 mg/dL Normal 0.0-12.0 [facility] Comment on above: Performed By: #### L 100.0100, L501.0900, L500.4050 ####[facility] [address] [place], [place], [address] Urine protein/creatinine mas s ratioOrdered By: Naomi Hendrix on 09-26-2024 Protein/Creatinine (U) [Mass ratio] 405 mg/g CRE High 0-200 [facility] White blood cell (WBC) count Ordered By: Naomi Hendrix on 09-26-2024 WBC (Bld) [#/Vol] 11.8 10*3/uL High 4.4-11.0 [facility] Laboratory - Chemistry and C hemistry - challengeOrdered By: Kiley George on 09-14-2024 Glucose Ql (U) Negative [facility] Laboratory - UrinalysisOrder ed By: Kiley George on 09-14-2024 Protein Ql (U) Negative [facility] Clinical Nursing Manager Office Visit Reporton 09-14-2024 Clinical Nursing Manager Office Visit Report [facility]'[address], [address] [place] [address] OFFICE VISIT Date of Service: 09/14/24 MR#: [id number] Acct: [id number] Name: JOSE POLLACK Rep #: [id number] : 2000 Provider: Dr. Kiley Anderson DO Age/Sex: 24/F [place] [facility] [place] Status: Signed Intake Vital Signs 07/14/24 08:50 08/16/24 12:02 09/14/24 08:41 Height 5 ft 8 in 5 ft 8 in 5 ft 8 in Weight: 232 lb 6 oz BMI 35.3 BP 142/86 H Intake Visit Reasons: 18wk ob Assistant Center Manager Required: No Is patient in pain?: No Allergies amoxicillin Allergy (Verified 09/14/24 08:41) Hives Penicillins Allergy (Verified 09/14/24 08:41) Rash Medications ???Medication ???Instructions ???Recorded ???Confirmed ???Type docosahexaenoic acid 200 mg mg PO 06/27/24 09/14/24 History capsule ( DHA) Last Menstrual Period: 05/11/24 Zika: Zika virus screening: Negative : No PFSH PFSH Medical History Seasonal allergies Surgical History S/P wisdom tooth extraction S/P tonsillectomy and adenoidectomy Family History Brother Asthma Father Diabetes Type 2 Grandfather Diabetes Type 2 Social History adopted: No household members: spouse current occupational status: employed current occupation: [employer] current occupational exposures/hazards: No pets and animals: Yes pets and animals: dog(s) history of recent travel: Yes ([facility] - Apr 2024) out of state: No out of country: Yes sexually active: Yes Smoking Status: Never smoker alcohol intake: never substance use type: does not use well-balanced diet: daily or most days caffeine: No eating out: 1-3 times/week during the past year weight has: remained stable what type of physical activity do you participate in: walking frequency: 3-4 times per week duration: 15-30 minutes/day stephanie/gnosticist: Yazidism seatbelt use: always do you feel safe at home: Yes additional social history: : Joao - [employer] History 1 Elective abortions Hx Para 0 Spontaneous abortions 0 Hx # Term Pregnancies Ectopic pregnancies Hx # Pregnancies Multiple births # of living children HPI 18wk ob Details: JOSE POLLACK is a 24 year old who presents for routine OB visit. OB Visit ED Calculator Estimated Delivery Date Method Current WG Current Estimate 02/15/25 LMP (Certain) 18w 0d Other Estimates 02/19/25 Ultrasound #1 17w 3d Expected Delivery Route/Plan Labor Preferences- CB/BF classes: [] labor support person: [] labor intervention preferences: [] pain management options preferred: [] cut cord/dad catch: [] : [] PP control planned: [] discussed possible routes of delivery and associated risks: [] special requests: [] Specific Issue/Plans Covid status: [] Flu vaccine: [] Tdap vaccine: [] Rhogam: [] LARC form signed: [] Problem list reviewed and updated with the most current plan of care details and appropriate orders placed. Relevant counseling for the gestational age provided. Continue routine care and follow up unless otherwise noted in visit notes/problem list details Initial Weight: Not Recorded Date -???-???-???-???-?? ?-???-???-???-???-? ??-???-???- EGA Weight BP Urine Prot -???-???-???-???-?? ?-???-???-???-???-? ??-???-???- Glucose FHR FuHt Pres Dilation -???-???-???-???-?? ?-???-???-???-???-? ??-???-???- Effaced St Visit Note 07/14/24 -???-???-???-???-?? ?-???-???-???-???-? ??-???-???- 9w 1d 226 lb 4 oz 146/95 -???-???-???-???-?? ?-???-???-???-???-? ??-???-???- 171 -???-???-???-???-?? ?-???-???-???-???-? ??-???-???- KW- CRL cons with dates. declines NIPT 08/16/24 -???-???-???-???-?? ?-???-???-???-???-? ??-???-???- 13w 6d 229 lb 8 oz 126/94 Negative -???-???-???-???-?? ?-???-???-???-???-? ??-???-???- Negative 160 -???-???-???-???-?? ?-???-???-???-???-? ??-???-???- JV- patient states that she is feeling better BP was elevated initially. ordering baseline PIH labs and she will start taking her bp at home. 09/14/24 -???-???-???-???-?? ?-???-???-???-???-? ??-???-???- 18w 0d 232 lb 6 oz 142/86 Negative -???-???-???-???-?? ?-???-???-???-???-? ??-???-???- Negative 154 -???-???-???-???-?? ?-???-???-???-???-? ??-???-???- JV- bp's at home are 120's/70's. not sure if feeling movement yet. has anatomy scan 09/21. She will bring in her cuff from home next visit to compare. repeat bp was the same ACOG First Trimester First Trimester: Desire for , Alcohol, Tobacco Cessation, Illicit/Recr (more content not included)... Normal [facility] Anion gap in Serum or Plasma Ordered By: Kiley George on 08-16-2024 Anion gap [Moles/Vol] 13 mmol/L 5-15 [facility] BUN/creatinine ratioOrdered By: Kiley George on 08-16-2024 Urea nitrogen/Creatinine [Mass ratio] 13.3 mg/mg 10-20 [facility] Bilirubin, totalOrdered By: Kiley George on 08-16-2024 Bilirubin [Mass/Vol] mg/dL 0.00-1.30 [facility] Carbon dioxide, total [Moles /volume] in Central venous bloodOrdered By: Kiley George on 08-16-2024 CO2 [Moles/Vol] 19.2 mmol/L Low 21.0-32.0 [facility] Chloride assayOrdered By: Marcos George on 08-16-2024 Chloride [Moles/Vol] 103 mmol/L 98-108 [facility] Comprehensive Metabolic Prof ilon 08-16-2024 Albumin [Mass/Vol] 4.2 g/dL Normal 3.5-5.0 [facility] Comment on above: Performed By: #### L 500.4050 ####[facility] [address] [place], [address] Albumin/Globulin [Mass ratio] 1.3 {ratio} Normal 0.9-2.4 [facility] Comment on above: Performed By: #### L 500.4050 ####[facility] [address] [place], [address] ALK PHOS 74 U/L Normal 35-104 [facility] Comment on above: Performed By: #### L 500.4050 ####[facility] [address] [place], [address] ALT [Catalytic activity/Vol] 18 U/L Normal <=34 [facility] Comment on above: Performed By: #### L 500.4050 ####[facility] [address] [place], [address] AST [Catalytic activity/Vol] 18 U/L Normal <=31 [facility] Comment on above: Performed By: #### L 500.4050 ####[facility] [address] [place], [address] BUN/CRE 13.3 RATIO Normal 10-20 [facility] Comment on above: Performed By: #### L 500.4050 ####[facility] [address] [place], [address] Calcium [Mass/Vol] 9.3 mg/dL Normal 7.6-11.0 [facility] Comment on above: Performed By: #### L 500.4050 ####[facility] [address] [place], [address] Chloride [Moles/Vol] 103 mmol/L Normal 98-108 [facility] Comment on above: Performed By: #### L 500.4050 ####[facility] [address] [place], [address] CO2 [Moles/Vol] 19.2 mmol/L Low 21.0-32.0 [facility] Comment on above: Performed By: #### L 500.4050 ####[facility] [address] [place], [address] Creatinine [Mass/Vol] 0.48 mg/dL Low 0.70-1.20 [facility] Comment on above: Performed By: #### L 500.4050 ####[facility] [address] [place], [address] GAP 13 Normal 5-15 [facility] Comment on above: Performed By: #### L 500.4050 ####[facility] [address] [place], [address] GFR/1.73 sq M.predicted among non-blacks MDRD (S/P/Bld) [Vol rate/Area] 136 mL/min/{1.73_m2} Normal >60 [facility] Comment on above: Result Comment: mL/m in/1.73m2 CKD-EPI Creatinine Equation (2020) Performed By: #### L 500.4050 ####[facility] [address] [place], [address] Globulin (S) [Mass/Vol] 3.2 g/dL Normal 2.2-4.2 [facility] Comment on above: Performed By: #### L 500.4050 ####[facility] [address] [place], [address] Glucose [Mass/Vol] 109 mg/dL High 70-99 [facility] Comment on above: Performed By: #### L 500.4050 ####[facility] [address] [place], [address] Potassium [Moles/Vol] 3.7 mmol/L Normal 3.3-5.1 [facility] Comment on above: Performed By: #### L 500.4050 ####[facility] [address] [place], [address] Sodium [Moles/Vol] 135 mmol/L Normal 133-145 [facility] Comment on above: Performed By: #### L 500.4050 ####[facility] [address] [place], [address] T BILI < 0.15 Normal 0.00-1.30 [facility] Comment on above: Performed By: #### L 500.4050 ####[facility] [address] [place], [address] T PROT 7.3 g/dL Normal 5.9-8.4 [facility] Comment on above: Performed By: #### L 500.4050 ####[facility] [address] [place], [address] Urea nitrogen [Mass/Vol] 6 mg/dL Normal 4-19 [facility] Comment on above: Performed By: #### L 500.4050 ####[facility] [address] [place], [address] Glomerular filtration rate ( GFR) estimation/1.73 sq m using serum, plasma, or whole bOrdered By: Kiley George on 08-16-2024 GFR/1.73 sq M.predicted among non-blacks MDRD (S/P/Bld) [Vol rate/Area] 136 mL/min/{1.73_m2} >60 [facility] Comment on above: mL/min/1.73m2 CKD-EP I Creatinine Equation (2020) Laboratory - Chemistry and C hemistry - challengeOrdered By: Kiley George on 08-16-2024 AST [Catalytic activity/Vol] 18 U/L <32 [facility] Glucose Ql (U) Negative [facility] Laboratory - UrinalysisOrder ed By: Kiley George on 08-16-2024 Protein Ql (U) Negative [facility] Clinical Nursing Manager Office Visit Reporton 08-16-2024 Clinical Nursing Manager Office Visit Report [facility]'[address], [address] [place] [address] OFFICE VISIT Date of Service: 08/16/24 MR#: [id number] Acct: [id number] Name: JOSE KELLY Rep #: [id number] : 2000 Provider: Dr. Kiley Anderson, Age/Sex: 23/F [place] [facility] [place] Status: Signed Intake Vital Signs 07/14/24 08:50 08/16/24 11:29 08/16/24 11:32 Height 5 ft 8 in 5 ft 8 in 5 ft 8 in Weight: 229 lb 8 oz BMI 34.9 BP 126/94 H Intake Visit Reasons: 13wk OB Assistant Center Manager Required: No Is patient in pain?: No Allergies amoxicillin Allergy (Verified 08/16/24 11:29) Hives Penicillins Allergy (Verified 08/16/24 11:29) Rash Medications ???Medication ???Instructions ???Recorded ???Confirmed ???Type docosahexaenoic acid 200 mg mg PO 06/27/24 08/16/24 History capsule ( DHA) Last Menstrual Period: 05/11/24 Zika: Zika virus screening: Negative : No PFSH PFSH Medical History Seasonal allergies Surgical History S/P wisdom tooth extraction S/P tonsillectomy and adenoidectomy Family History Brother Asthma Father Diabetes Type 2 Grandfather Diabetes Type 2 Social History adopted: No household members: spouse current occupational status: employed current occupation: [employer] current occupational exposures/hazards: No pets and animals: Yes pets and animals: dog(s) history of recent travel: Yes ([facility] - Apr 2024) out of state: No out of country: Yes sexually active: Yes Smoking Status: Never smoker alcohol intake: never substance use type: does not use well-balanced diet: daily or most days caffeine: No eating out: 1-3 times/week during the past year weight has: remained stable what type of physical activity do you participate in: walking frequency: 3-4 times per week duration: 15-30 minutes/day stephanie/gnosticist: Yazidism seatbelt use: always do you feel safe at home: Yes additional social history: : Joao Orosco History 1 Elective abortions Hx Para 0 Spontaneous abortions 0 Hx # Term Pregnancies Ectopic pregnancies Hx # Pregnancies Multiple births # of living children HPI 13wk OB Details: JOSE KELLY is a 23 year old who presents for routine OB visit. OB Visit ED Calculator Estimated Delivery Date Method Current WG Current Estimate 02/15/25 LMP (Certain) 13w 6d Other Estimates 02/19/25 Ultrasound #1 13w 2d Expected Delivery Route/Plan Labor Preferences- CB/BF classes: [] labor support person: [] labor intervention preferences: [] pain management options preferred: [] cut cord/dad catch: [] : [] PP control planned: [] discussed possible routes of delivery and associated risks: [] special requests: [] Specific Issue/Plans Covid status: [] Flu vaccine: [] Tdap vaccine: [] Rhogam: [] LARC form signed: [] Problem list reviewed and updated with the most current plan of care details and appropriate orders placed. Relevant counseling for the gestational age provided. Continue routine care and follow up unless otherwise noted in visit notes/problem list details Initial Weight: Not Recorded Date -???-???-???-???-?? ?-???-???-???-???-? ??-???-???- EGA Weight BP Urine Prot -???-???-???-???-?? ?-???-???-???-???-? ??-???-???- Glucose FHR FuHt Pres Dilation -???-???-???-???-?? ?-???-???-???-???-? ??-???-???- Effaced St Visit Note 07/14/24 -???-???-???-???-?? ?-???-???-???-???-? ??-???-???- 9w 1d 226 lb 4 oz 146/95 -???-???-???-???-?? ?-???-???-???-???-? ??-???-???- 171 -???-???-???-???-?? ?-???-???-???-???-? ??-???-???- KW- CRL cons with dates. declines NIPT 08/16/24 -???-???-???-???-?? ?-???-???-???-???-? ??-???-???- 13w 6d 229 lb 8 oz 126/94 Negative -???-???-???-???-?? ?-???-???-???-???-? ??-???-???- Negative 160 -???-???-???-???-?? ?-???-???-???-???-? ??-???-???- JV- patient states that she is feeling better BP was elevated initially. ordering baseline PIH labs and she will start taking her bp at home. ACOG First Trimester First Trimester: Desire for , Alcohol, Tobacco Cessation, Illicit/Recreationa l Drug/Substance Use, Intimate Partner Violence, Barriers to care, Anticipated Course of Care, Use of Any medications, Sexual activity, Exercise, Dental Care, Sauna/Hot tub use, Seat Belt use, Childbirth classes/Hospital facilities, Travel, Indications for Ultrasound and Screening for Aneuploidy; Discussed Unstable Housing, Discussed Communication Barriers, Disc (more content not included)... Normal [facility] Potassium measurement (mass/ volume)Ordered By: Kiley George on 08-16-2024 Potassium (Unsp spec) [Mass/Vol] 3.7 mmol/L 3.3-5.1 [facility] Protein+Creatinine Ratio,Uri neon 08-16-2024 PROT:CRE RATIO UNABLE TO CALCULATE Normal 0-200 [facility] Comment on above: Performed By: #### L 501.0900 ####[facility] [address] [place], [address] PROTEIN,UR.RAN. < 6.0 Normal 0.0-12.0 [facility] Comment on above: Performed By: #### L 501.0900 ####[facility] [address] [place], [address] UR CREAT 26.90 mg/dL Low 28.00-217.00 [facility] Comment on above: Performed By: #### L 501.0900 ####[facility] [address] [place], [address] Random urine creatinine jaquelin urement (mass/volume)Ordered By: Kiley George on 08-16-2024 Creatinine Unsp time (U) [Mass/Vol] 26.90 mg/dL Low 28.00-217.00 [facility] Serum creatinine measurement (mass/volume)Ordered By: Kiley George on 08-16-2024 Creatinine [Mass/Vol] 0.48 mg/dL Low 0.70-1.20 [facility] Serum globulin measurementOr dered By: Kiley George on 08-16-2024 Globulin (S) [Mass/Vol] 3.2 g/dL 2.2-4.2 [facility] Serum glucose measurement (m ass/volume)Ordered By: Kiley George on 08-16-2024 Glucose [Mass/Vol] 109 mg/dL High 70-99 [facility] Serum or plasma alanine martins otransferase (ALT) measurementOrdered By: Kiley George on 08-16-2024 ALT [Catalytic activity/Vol] 18 U/L <35 [facility] Serum or plasma albumin jaquelin urement (mass/volume)Ordered By: Kiley George on 08-16-2024 Albumin [Mass/Vol] 4.2 g/dL 3.5-5.0 [facility] Serum or plasma albumin/glob ulin mass ratioOrdered By: Kiley George on 08-16-2024 Albumin/Globulin [Mass ratio] 1.3 {ratio} 0.9-2.4 [facility] Serum or plasma alkaline ken sphatase measurementOrdered By: Kiley George on 08-16-2024 ALP [Catalytic activity/Vol] 74 U/L 35-104 [facility] Serum or plasma calcium jaquelin urement (mass/volume)Ordered By: Kiley George on 08-16-2024 Calcium [Mass/Vol] 9.3 mg/dL 7.6-11.0 [facility] Serum or plasma urea nitroge n measurement (mass/volume)Ordered By: Kiley George on 08-16-2024 Urea nitrogen [Mass/Vol] 6 mg/dL 4-19 [facility] Sodium levelOrdered By: Lucille wilbert Doris on 08-16-2024 Sodium [Moles/Vol] 135 mmol/L 133-145 [facility] Total proteinOrdered By: Venice patton Doris on 08-16-2024 Protein [Mass/Vol] 7.3 g/dL 5.9-8.4 [facility] Urine protein measurement (m ass/volume)Ordered By: Kiley George on 08-16-2024 Protein (U) [Mass/Vol] mg/dL 0.0-12.0 [facility] Urine protein/creatinine mas s ratioOrdered By: Kiley Doris on 08-16-2024 Protein/Creatinine (U) [Mass ratio] UNABLE TO CALCULATE mg/g CRE 0-200 [facility] PAP I-G w/rfx hrHPV-Aptimaon 07-20-2024 ADEQ Comment Normal . [facility] Comment on above: Order Comment: Speci men Comment: [id number] Specimen Comment: Source.............Cervix;Endocervix Specimen Comment: Other.............. Specimen Comment: No. of containers..01 ThinPrep Vial Result Comment: Sati sfactory for evaluation. Endocervical and/or squamous metaplastic cells (endocervical component) are present. Performed By: #### L 7400.0353 #### [facility] [address] [place], [address] COMM . Normal . [facility] Comment on above: Order Comment: Speci men Comment: [id number] Specimen Comment: Source.............Cervix;Endocervix Specimen Comment: Other.............. Specimen Comment: No. of containers..01 ThinPrep Vial Performed By: #### L 7400.0353 #### [facility] [address] [place], [place], [address] COMMENT Comment Normal . [facility] Comment on above: Order Comment: Speci men Comment: [id number] Specimen Comment: Source.............Cervix;Endocervix Specimen Comment: Other.............. Specimen Comment: No. of containers..01 ThinPrep Vial Result Comment: This liquid based ThinPrep(R) pap test was screened with the use of an image guided system. Performed By: #### L 7400.0353 #### [facility] [address] [place], [place], [address] DIAG Comment Normal . [facility] Comment on above: Order Comment: Speci men Comment: [id number] Specimen Comment: Source.............Cervix;Endocervix Specimen Comment: Other.............. Specimen Comment: No. of containers..01 ThinPrep Vial Result Comment: NEGA TIVE FOR INTRAEPITHELIAL LESION OR MALIGNANCY. Performed By: #### L 7400.0353 #### [facility] [address] [place], [place], [address] HPV RFLX Comment Normal . [facility] Comment on above: Order Comment: Speci men Comment: [id number] Specimen Comment: Source.............Cervix;Endocervix Specimen Comment: Other.............. Specimen Comment: No. of containers..01 ThinPrep Vial Result Comment: The HPV DNA reflex criteria were not met with this specimen result therefore, no HPV testing was performed. Performed at: [address] [id number] Binding Printer: Sadie Kohli PhD, Phone: [phone] Performed at: [address] [id number] Binding Printer: Echo Solano MD, Phone: [phone] Performed By: #### L 7400.0353 #### [facility] [address] [place], [place], [address] PAPSMR Comment Normal . [facility] Comment on above: Order Comment: Speci men Comment: [id number] Specimen Comment: Source.............Cervix;Endocervix Specimen Comment: Other.............. Specimen Comment: No. of containers..01 ThinPrep Vial Result Comment: The Pap smear is a screening test designed to aid in the detection of premalignant and malignant conditions of the uterine cervix. It is not a diagnostic procedure and should not be used as the sole means of detecting cervical cancer. Both false-positive and false-negative reports do occur. Performed By: #### L 7400.0353 #### [facility] [address] [place], [address] PERFORM Comment Normal . [facility] Comment on above: Order Comment: Speci men Comment: [id number] Specimen Comment: Source.............Cervix;Endocervix Specimen Comment: Other.............. Specimen Comment: No. of containers..01 ThinPrep Vial Result Comment: Donna Ignacio Glass Checker (ASCP) Performed By: #### L 7400.0353 #### [facility] [address] [place], [place], [address] Chlamydia/GC JEROMY aptimaon CHLAMY,NUC ACID Negative Normal Negative [facility] Comment on above: Performed By: #### L 7000.1800, M100.2200 ####[facility] [address] [place], [place], [id number] GC BY NUC ACID Negative Normal Negative [facility] Comment on above: Result Comment: Perf ormed at: =G - [facility] [address] [id number] Binding Printer: Echo Solano MD, Phone: [phone] Performed By: #### L 7000.1800, M100.2200 ####[facility] [address] [place], [address] Urine Cultureon 07-16-2024 URC Below infection level. Mixed Gram Positive Organisms Prosperity Count 1000-10,000 MIXC Mixed contaminants. Submit a new specimen if indicated. Normal [facility] Comment on above: Performed By: #### L 7000.1800, M100.2200 ####[facility] [address] [place], [address] Absolute lymphocyte countOrd ered By: Charline Alvarez on 07-14-2024 Lymphocytes Auto (Unsp spec) [#/Vol] 2.42 10*3/uL 0.83-4.51 [facility] Absolute neutrophil countOrd ered By: Charline Alvarez on 07-14-2024 Neutrophils (Bld) [#/Vol] 10.2 10*3/uL High 2.0-7.7 [facility] Automated lymphocyte count a s percentage of total leukocytesOrdered By: Charline Alvarez on 07-14-2024 Lymphocytes/100 WBC Auto (Unsp spec) 18.1 % Low 19-41 [facility] Basophil percentageOrdered B y: Charline Alvarez on 07-14-2024 Basophils/100 WBC (Bld) 0.6 % 0-1 [facility] CBC W/Diff, Automatedon Absolute Lymph 2.42 X10 3/uL Normal 0.83-4.51 [facility] Comment on above: Performed By: #### L 509.4006, L3890.6102, L100.0100, L501.9985, L509.8002, L3890.6301, BTS, L3890.6006 ####[facility] [address] [place], [address] Absolute Neut 10.2 X10 3/uL High 2.0-7.7 [facility] Comment on above: Performed By: #### L 509.4006, L3890.6102, L100.0100, L501.9985, L509.8002, L3890.6301, BTS, L3890.6006 ####[facility] [address] [place], [address] Basophils/100 WBC (Bld) 0.6 % Normal 0-1 [facility] Comment on above: Performed By: #### L 509.4006, L3890.6102, L100.0100, L501.9985, L509.8002, L3890.6301, BTS, L3890.6006 ####[facility] [address] [place], [address] Eosinophils/100 WBC (Bld) 0.3 % Normal 0-5 [facility] Comment on above: Performed By: #### L 509.4006, L3890.6102, L100.0100, L501.9985, L509.8002, L3890.6301, BTS, L3890.6006 ####[facility] [address] [place], [address] Erythrocyte distribution width (RBC) [Ratio] 12.9 % Normal 11.6-14.6 [facility] Comment on above: Performed By: #### L 509.4006, L3890.6102, L100.0100, L501.9985, L509.8002, L3890.6301, BTS, L3890.6006 ####[facility] [address] [place], [address] Hematocrit (Bld) [Volume fraction] 44.8 % Normal 37-47 [facility] Comment on above: Performed By: #### L 509.4006, L3890.6102, L100.0100, L501.9985, L509.8002, L3890.6301, BTS, L3890.6006 ####[facility] [address] [place], [address] Hemoglobin (Bld) [Mass/Vol] 15.3 g/dL High 12.0-15.0 [facility] Comment on above: Performed By: #### L 509.4006, L3890.6102, L100.0100, L501.9985, L509.8002, L3890.6301, BTS, L3890.6006 ####[facility] [address] [place], [address] IG% 0.400 Normal 0.0-0.9 [facility] Comment on above: Result Comment: IG% - Immature Granulocytes (promyelocytes, myelocytes and metamyelocytes) > 1% indicates that a LEFT SHIFT is Present. Performed By: #### L 509.4006, L3890.6102, L100.0100, L501.9985, L509.8002, L3890.6301, BTS, L3890.6006 ####[facility] [address] [place], [address] Lymphocytes/100 WBC (Bld) 18.1 % Low 19-41 [facility] Comment on above: Performed By: #### L 509.4006, L3890.6102, L100.0100, L501.9985, L509.8002, L3890.6301, BTS, L3890.6006 ####[facility] [address] [place], [address] MCH (RBC) [Entitic mass] 31.0 pg Normal 27.0-32.0 [facility] Comment on above: Performed By: #### L 509.4006, L3890.6102, L100.0100, L501.9985, L509.8002, L3890.6301, BTS, L3890.6006 ####[facility] [address] [place], [address] MCHC (RBC) [Mass/Vol] 34.2 g/dL Normal 32-36 [facility] Comment on above: Performed By: #### L 509.4006, L3890.6102, L100.0100, L501.9985, L509.8002, L3890.6301, BTS, L3890.6006 ####[facility] [address] [place], [address] MCV (RBC) [Entitic vol] 90.9 fL Normal 81-99 [facility] Comment on above: Performed By: #### L 509.4006, L3890.6102, L100.0100, L501.9985, L509.8002, L3890.6301, BTS, L3890.6006 ####[facility] [address] [place], [address] Monocytes/100 WBC (Bld) 4.3 % Normal 0-10 [facility] Comment on above: Performed By: #### L 509.4006, L3890.6102, L100.0100, L501.9985, L509.8002, L3890.6301, BTS, L3890.6006 ####[facility] [address] [place], [address] Neutrophils/100 WBC (Bld) 76.3 % High 47-70 [facility] Comment on above: Performed By: #### L 509.4006, L3890.6102, L100.0100, L501.9985, L509.8002, L3890.6301, BTS, L3890.6006 ####[facility] [address] [place], [address] Nucleated RBC (Bld) [#/Vol] 0 10*3/uL Normal 0-5 [facility] Comment on above: Performed By: #### L 509.4006, L3890.6102, L100.0100, L501.9985, L509.8002, L3890.6301, BTS, L3890.6006 ####[facility] [address] [place], [address] Platelet mean volume (Bld) [Entitic vol] 10.4 fL Normal 6.2-12.0 [facility] Comment on above: Performed By: #### L 509.4006, L3890.6102, L100.0100, L501.9985, L509.8002, L3890.6301, BTS, L3890.6006 ####[facility] [address] [place], [address] Platelets (Bld) [#/Vol] 393 10*3/uL Normal 150-450 [facility] Comment on above: Performed By: #### L 509.4006, L3890.6102, L100.0100, L501.9985, L509.8002, L3890.6301, BTS, L3890.6006 ####[facility] [address] [place], [address] RBC (Bld) [#/Vol] 4.93 10*6/uL Normal 4.2-5.4 [facility] Comment on above: Performed By: #### L 509.4006, L3890.6102, L100.0100, L501.9985, L509.8002, L3890.6301, BTS, L3890.6006 ####[facility] [address] [place], [address] RDW SD 42.7 fl Normal 35.1-43.9 [facility] Comment on above: Performed By: #### L 509.4006, L3890.6102, L100.0100, L501.9985, L509.8002, L3890.6301, BTS, L3890.6006 ####[facility] [address] [place], [address] WBC (Bld) [#/Vol] 13.4 10*3/uL High 4.4-11.0 [facility] Comment on above: Performed By: #### L 509.4006, L3890.6102, L100.0100, L501.9985, L509.8002, L3890.6301, BTS, L3890.6006 ####[facility] [address] [place], [address] Cervical or vagninal specime n microscopic examination by cytology stain (reported asOrdered By: Nancy Wolfe on 07-14-2024 Cytology report Cyto stain Doc (Cvx/Vag) Comment . [facility] Comment on above: The Pap smear is a s creening test designed to aid in thedetection of premalignant and malignant conditions of theuterine cervix. It is not a diagnostic procedure andshould not be used as the sole means of detecting cervicalcancer. Both false-positive and false-negative reports dooccur. Chlamydia trachomatis rRNA d etection by probe and target amplification methodOrdered By: Charline Alvarez on 07-14-2024 C. trachomatis rRNA JEROMY+probe Ql (Unsp spec) Negative Negative [facility] Eosinophil percentageOrdered By: Charline Alvarez on 07-14-2024 Eosinophils/100 WBC (Bld) 0.3 % 0-5 [facility] Erythrocyte distribution wid th ratioOrdered By: Charline Alvarez on 07-14-2024 Erythrocyte distribution width (RBC) [Ratio] 12.9 % 11.6-14.6 [facility] Erythrocyte distribution wid th standard deviationOrdered By: Charline Alvarez on 07-14-2024 Erythrocyte distribution width (RBC) [Ratio] 42.7 fl 35.1-43.9 [facility] HIVon 07-14-2024 HIV Non-Reactive Normal Nonreactive [facility] Comment on above: Result Comment: Non- Reactive Reactive Repeatedly reactive samples must be confirmed according to CDC recommended confirmatory algorithms. The subresults for either HIVAG or AHIV can be used as an aid in the selection of the confirmation algorithm for reactive samples. Send out specimens with Reactive results to [facility] for confirmation. Order the HIV antibody detection and differentiation: [id number]#[id number] Performed By: #### L 509.4006, L3890.6102, L100.0100, L501.9985, L509.8002, L3890.6301, BTS, L3890.6006 ####[facility] [address] [place], [place], [address] Hematocrit Auto (Bld) [Volum e fraction]Ordered By: Charline Alvarez on 07-14-2024 Hematocrit (Bld) [Volume fraction] 44.8 % 37-47 [facility] Hemoglobin A1con 07-14-2024 HbA1c (Bld) [Mass fraction] 5.3 % Normal <=5.6 [facility] Comment on above: Result Comment: Norm al < 5.7 % Prediabetic 5.7 - 6.4 % Diabetic >or= 6.5 % Please note range changes. Performed By: #### L 509.4006, L3890.6102, L100.0100, L501.9985, L509.8002, L3890.6301, BTS, L3890.6006 ####[facility] [address] [place], [place], [address] Hemoglobin A1c percentageOrd ered By: Charline Alvarez on 07-14-2024 HbA1c (Bld) [Mass fraction] 5.3 % <5.7 [facility] Comment on above: Normal < 5.7 % Predi abetic 5.7 - 6.4 % Diabetic >or= 6.5 % Please note range changes. Hemoglobin measurementOrdere d By: Charline Alvarez on 07-14-2024 Hemoglobin (Bld) [Mass/Vol] 15.3 g/dL High 12.0-15.0 [facility] Hepatitis C Antibodyon 07-14 Hepatitis C Ab Non-Reactive Normal Nonreactive [facility] Comment on above: Result Comment: Reac tive: Presumptive evidence of antibodies to HCV. Follow CDC recommendations for supplemental testing. Non-Reactive: Antibodies to HCV were not detected; does not exclude the possibility of exposure to HCV Reactive Results are presumptive evidence of antibodies to HCV. Follow CDC recommendations for supplemental testing. Order confirmation testing: HCV Quant by PCR testing - HCVPCR #[id number] Non Reactive: < 0.8 Equivocal: >/= 0.8 to < 1.0 Reactive: >/= 1.0 The CDC requires that a reactive/equivocal HCV antibody result be sent out for confirmation. HCV Quant by PCR testing. Performed By: #### L 509.4006, L3890.6102, L100.0100, L501.9985, L509.8002, L3890.6301, BTS, L3890.6006 ####[facility] [address] [facility] [place], [place], [id number] Immature granulocytes/100 WB C Auto (Bld)Ordered By: Charline Alvarez on 07-14-2024 Immature granulocytes/100 WBC (Bld) 0.400 % 0.0-0.9 [facility] Comment on above: IG% - Immature Granu locytes (promyelocytes, myelocytes and metamyelocytes) > 1% indicates that a LEFT SHIFT is Present. L3890.6102on 07-14-2024 HEP B Surf Ag Non-Reactive Normal Nonreactive [facility] Comment on above: Result Comment: Reac tive: Presumptive evidence of HBV. Repeatedly reactive samples must be confirmed using a neutralization test ([facility] HBsAg Confirmatory Test) Non-Reactive: HBsAg not detected; does not exclude the possibility of exposure to HBV Performed By: #### L 509.4006, L3890.6102, L100.0100, L501.9985, L509.8002, L3890.6301, BTS, L3890.6006 ####[facility] [address] [facility] [place], [address] L509.4006on 07-14-2024 Rubella IgG REAC Normal Nonreactive [facility] Comment on above: Result Comment: Anti body Result: Interpretation Non-Reactive: Non-Immune Reactive: Immune The following results were obtained with the [employer] Rubella IgG assay. Results from assays of other manufacturers cannot be used interchangeably. Performed By: #### L 509.4006, L3890.6102, L100.0100, L501.9985, L509.8002, L3890.6301, BTS, L3890.6006 ####[facility] [address] [place], [address] Laboratory - CytologyOrdered By: Nancy Wolfe on 07-14-2024 Glass Checker Cyto stain Nom (Cvx/Vag) [ID] Comment . [facility] Comment on above: Tosha Ignacio, Cyto logist (ASCP) Laboratory - Microbiology an d Antimicrobial susceptibilityOrdered By: Charline Alvarez on 07-14-2024 HBV surface Ag Ql (S) Non-Reactive Nonreactive [facility] Comment on above: Reactive: Presumptiv e evidence of HBV. Repeatedly reactive samples must be confirmed using a neutralization test ([facility] HBsAg Confirmatory Test)Non-Reactive: HBsAg not detected; does not exclude the possibility of exposure to HBV Laboratory - Miscellaneous t estsOrdered By: Nancy Wolfe on 07-14-2024 Service comment (Unsp spec) [Interp] . . [facility] MCV (mean corpuscular volume ) determinationOrdered By: Charline Alvarez on 07-14-2024 MCV (RBC) [Entitic vol] 90.9 fL 81-99 [facility] Mean corpuscular hemoglobin (MCH) determinationOrdered By: Charline Alvarez on 07-14-2024 MCH (RBC) [Entitic mass] 31.0 pg 27.0-32.0 [facility] Mean corpuscular hemoglobin concentration (MCHC) determinationOrdered By: Charline Alvarez on 07-14-2024 MCHC (RBC) [Mass/Vol] 34.2 g/dL 32-36 [facility] Mean platelet volume determi nationOrdered By: Charline Alvarez on 07-14-2024 Platelet mean volume (Bld) [Entitic vol] 10.4 fL 6.2-12.0 [facility] Monocyte percentageOrdered B y: Charline Alvarez on 07-14-2024 Monocytes/100 WBC (Bld) 4.3 % 0-10 [facility] Neisseria gonorrhoeae nuclei c acid detection by amplified probe techniqueOrdered By: Charline Alvarez on 07-14-2024 N. gonorrhoeae DNA JEROMY+probe Ql (Unsp spec) Negative Negative [facility] Comment on above: Performed at: =[address] [id number] Director: Echo Solano MD, Phone: [phone] Neutrophil percentageOrdered By: Charline Alvarez on 07-14-2024 Neutrophils/100 WBC (Bld) 76.3 % High 47-70 [facility] No Panel InformationOrdered By: Nancy Wolfe on 07-14-2024 Pap Smear Specimen Adequacy Comment . [facility] Comment on above: Satisfactory for ysabel luation. Endocervical and/or squamous metaplasticcells (endocervical component) are present. No Panel InformationOrdered By: Charline Alvarez on 07-14-2024 HIV (1&2) Antibody Non-Reactive Nonreactive [facility] Comment on above: Non-ReactiveReactive Repeatedly reactive samples must be confirmed according to CDC recommended confirmatory algorithms. The subresults for either HIVAG or AHIV can be used as an aid in the selection of the confirmation algorithm for reactive samples.Send out specimens with Reactive results to [facility] for confirmation.Order the HIV antibody detection and differentiation: #[id number] Nucleated red blood cell per centageOrdered By: Charline Alvarez on 07-14-2024 Nucleated RBC/100 WBC (Bld) [Ratio] 0 % 0-5 [facility] Clinical Nursing Manager Office Visit Reporton 07-14-2024 Clinical Nursing Manager Office Visit Report [facility] [address], [address] [place] [address] OFFICE VISIT Date of Service: 07/14/24 MR#: [id number] Acct: [id number] Name: JOSE KELLY Rep #: [id number] : 2000 Provider: NELLY Jorgensen ams Age/Sex: 23/F [place] [facility] [place] Status: Signed Intake Vital Signs 08/01/16 17:41 06/27/24 08:41 07/14/24 08:50 Height 5 ft 7 in 5 ft 8 in 5 ft 8 in Weight: 226 lb 4 oz BMI 34.4 BP 146/95 H Intake Visit Reasons: NOB: LMP 3/6, ED 02/15 Chief Complaint: New OB Assistant Center Manager Required: No Is patient in pain?: No Allergies amoxicillin Allergy (Verified 07/14/24 08:46) Hives Penicillins Allergy (Verified 07/14/24 08:46) Rash Medications ???Medication ???Instructions ???Recorded ???Confirmed ???Type docosahexaenoic acid 200 mg mg PO 06/27/24 07/14/24 History capsule ( DHA) Last Menstrual Period: 05/11/24 : No Have you fallen in the past year?: No PFSH PFSH Medical History Seasonal allergies Surgical History S/P wisdom tooth extraction S/P tonsillectomy and adenoidectomy Family History Brother Asthma Father Diabetes Type 2 Grandfather Diabetes Type 2 Social History adopted: No household members: spouse current occupational status: employed current occupation: [employer] current occupational exposures/hazards: No pets and animals: Yes pets and animals: dog(s) history of recent travel: Yes ([facility] - Apr 2024) out of state: No out of country: Yes sexually active: Yes Smoking Status: Never smoker alcohol intake: never substance use type: does not use well-balanced diet: daily or most days caffeine: No eating out: 1-3 times/week during the past year weight has: remained stable what type of physical activity do you participate in: walking frequency: 3-4 times per week duration: 15-30 minutes/day stephanie/gnosticist: Yazidism seatbelt use: always do you feel safe at home: Yes additional social history: : Joao Orosco History 1 Elective abortions Hx Para 0 Spontaneous abortions 0 Hx # Term Pregnancies Ectopic pregnancies Hx # Pregnancies Multiple births # of living children HPI NOB: LMP 36, ED 02/15 Details: JOSE EKLLY is a 23 year old who presents for New OB visit. OB Visit ED Calculator Estimated Delivery Date Method Current WG Current Estimate 02/15/25 LMP (Certain) 9w 1d Other Estimates 02/19/25 Ultrasound #1 8w 4d Estimated Due Date: 02/15/25 Expected Delivery Route/Plan Labor Preferences- CB/BF classes: [] labor support person: [] labor intervention preferences: [] pain management options preferred: [] cut cord/dad catch: [] : [] PP control planned: [] discussed possible routes of delivery and associated risks: [] special requests: [] Specific Issue/Plans Covid status: [] Flu vaccine: [] Tdap vaccine: [] Rhogam: [] LARC form signed: [] Problem list reviewed and updated with the most current plan of care details and appropriate orders placed. Relevant counseling for the gestational age provided. Continue routine care and follow up unless otherwise noted in visit notes/problem list details Initial Weight: Not Recorded Date -???-???-???-???-?? ?-???-???-???-???-? ??-???-???- EGA Weight BP Urine Prot -???-???-???-???-?? ?-???-???-???-???-? ??-???-???- Glucose FHR FuHt Pres Dilation -???-???-???-???-?? ?-???-???-???-???-? ??-???-???- Effaced St Visit Note 07/14/24 -???-???-???-???-?? ?-???-???-???-???-? ??-???-???- 9w 1d 226 lb 4 oz 146/95 -???-???-???-???-?? ?-???-???-???-???-? ??-???-???- 171 -???-???-???-???-?? ?-???-???-???-???-? ??-???-???- KW- CRL cons with dates. declines NIPT Menstrual History Last Menstrual Period: 05/11/24 Reported LMP: definite Normal amount/duration: Yes Frequency in days: 28-29 On hormonal BC at conception: No hCG+: 06/09/24 Antepartum Record Genetic Screening: Congenital Heart Defect: Other, Neural Tube Defect: Other, Hemoglobinopathy Or Carrier: Other, Cystic Fibrosis: Other, Chromosome Abnormality: Other, Ankit-Sachs: Other, Hemophilia: Other, Intellectual Disability/Autism: Other, Recurrent Loss/Stillbirth: Other, Other Structural Defect: Other, Other Genetic Disease: Other and Maternal Metabolic Disorder: Other Infection History: Live with someone with TB or Exposed to TB: No, Patient or Partner has history of Genital Herpes: No, Rash or Viral illness since last mentrual period: No, (more content not included)... Normal [facility] Platelet countOrdered By: Mitch Alvarez on 07-14-2024 Platelets (Bld) [#/Vol] 393 10*3/uL 150-450 [facility] RBC Auto (Bld) [#/Vol]Ordere d By: Charline Alvarez on 07-14-2024 RBC (Bld) [#/Vol] 4.93 10*6/uL 4.2-5.4 [facility] Syphilis Antibodieson 2024 Syphilis Abs Non-Reactive Normal Nonreactive [facility] Comment on above: Performed By: #### L 509.4006, L3890.6102, L100.0100, L501.9985, L509.8002, L3890.6301, BTS, L3890.6006 ####[facility] [id number] [place], [address] Type AND Screenon 07-14-2024 Ab SCREEN GEL Negative Normal [facility] Comment on above: Order Comment: PN Performed By: #### L 509.4006, L3890.6102, L100.0100, L501.9985, L509.8002, L3890.6301, BTS, L3890.6006 ####[facility] [id number] [place], [address] ABO and Rh group Nom (Bld) Blood group AB Rh(D) positive Normal [facility] Comment on above: Order Comment: PN Performed By: #### L 509.4006, L3890.6102, L100.0100, L501.9985, L509.8002, L3890.6301, BTS, L3890.6006 ####[facility] [id number] [place], [address] Urine cultureOrdered By: Eyad Alvarez on 07-14-2024 Bacteria identified Cx Nom (U) Positive Abnormal [facility] White blood cell (WBC) count Ordered By: Charline Alvarez on 07-14-2024 WBC (Bld) [#/Vol] 13.4 10*3/uL High 4.4-11.0 [facility] Laboratory - Chemistry and C hemistry - challengeOrdered By: Charline Alvarez on 06-27-2024 HCG ( test) Ql (U) Positive [facility] Office Visit Reporton 2024 Office Visit Report [facility] [address] [place] [address] OFFICE VISIT Date of Service: 06/27/24 MR#: [id number] Acct: [id number] Patient: JOSE KELLY Rep #: [id number] : 2000 Provider: Dr. Charline bolton MD Age/Sex: 23/F Location[place] [facility] [place] Status: Signed Intake Vital Signs 06/27/24 08:41 Height 5 ft 8 in Weight: 228 lb 2 oz BMI 34.7 BP 124/80 H Intake Visit Reasons: Pre New OB, Vital, urine test Assistant Center Manager Required: No Allergies amoxicillin Allergy (Verified 06/27/24 08:13) Hives Penicillins Allergy (Verified 06/27/24 08:14) Rash Medications ???Medication ???Instructions ???Recorded ???Confirmed ???Type docosahexaenoic acid 200 mg mg PO 06/27/24 06/27/24 History capsule ( DHA) Is last menstrual period known: Yes Post menopausal: No Patient : Yes Have you fallen in the past year?: No Nurse's Note: Pt here for PNOB. Office UPT: positive. Vitals WNL. PNOB questions completed. Problem list, allergies, and medications updated. Results POC Urine Office , Urine Positive Last Edit by Lydia Horner RN on 06/27/24 08:43 Assessment and Plan Assessment and Plan (1) Obesity affecting : Status: Acute Comment: BMI 34.7; HgBA1C ordered w/NOB (2) Supervision of high-risk : Status: Acute Comment: G1, ED 02/15/25, : Joao (3) : Status: Acute Comment: Discussed genetic/carrier testing - undecided Orders: Orders POC Urine 06/27/24 N91.2 - Amenorrhea, unspecified CBC W/Diff, Automated 06/27/24 O09.90 - Supervision of high risk , unspecified, unspecified trimester Type Screen 06/27/24 O09.90 - Supervision of high risk , unspecified, unspecified trimester Rubella IgG 06/27/24 O09.90 - Supervision of high risk , unspecified, unspecified trimester Hepatitis C Antibody 06/27/24 O09.90 - Supervision of high risk , unspecified, unspecified trimester Hepatitis B Surface Antigen 06/27/24 O09.90 - Supervision of high risk , unspecified, unspecified trimester Culture, Urine 06/27/24 O09.90 - Supervision of high risk , unspecified, unspecified trimester Syphilis Antibodies 06/27/24 O09.90 - Supervision of high risk , unspecified, unspecified trimester Chlamydia/GC JEROMY aptima 06/27/24 O09.90 - Supervision of high risk , unspecified, unspecified trimester HIV 06/27/24 O09.90 - Supervision of high risk , unspecified, unspecified trimester Hemoglobin A1c 06/27/24 O09.90 - Supervision of high risk , unspecified, unspecified trimester, O99.210 - Obesity complicating , unspecified trimester Clinical Quality Measures Falls Risk Screening/Assistive Devices Have you fallen in the past year?: No 06/28/24 1222 Date Charline Benjamin Signature: Date (if applicable) CC: Normal [facility] OBSOLETEon 09-12-2020 OBSOLETE Refill ([facility]) ---- JOSE KELLY ([id number]) 1 F Date Time Provider Department 09/12/20 ERAN VU [facility] During your visit today, we recorded the following information about you: Allergies As of Date: 09/12/2020 Noted Allergy Reaction AMOXICILLIN 12/24/2008 2 - Rash OMNICEF (CEFDINIR) 07/09/2009 2 - Rash Date Reviewed: 03/18/2018 Reviewed by: Whit ([facility]) Luis Felipe - Fully Assessed Order(s):valACYclov ir (VALTREX) 1 gramTake 1 tablet by mouth twice daily for 10 days.Disp: 20 tabletRfl: 1 Prescriptions as of 09/12/2020 - valACYclovir (VALTREX) 1 gram Take 1 tablet by mouth twice daily for 10 days. - nystatin (MYCOSTATIN) ointment Apply 1 application to affected area three times daily. APPLY TO RASH. Problem List As Of Date: 09/12/2020 (None) Prescriptions ordered this encounter Disp Refills Start End VALACYCLOVIR 1 GRAM TABLET 20 t* 1 09/12/2020 09/22/2020 Route: ORAL Sig: Take 1 tablet by mouth twice daily for 10 days. Encounter Status:Closed by ERAN VU on 09/12/20 Normal [facility] Vital Signs Date Time Vital Sign Value Performing Clinician Robbie olivas 12-19-2024 10:35-0400 Body height 172.[address] Eran Vu DO Work Phone: [facility] 12-19-2024 10:35-0400 Body mass index (BMI) [Ratio] 36.6 kg/m2 Dr. Eran Vu DO Work Phone: [facility] 12-19-2024 10:35-0400 Body weight 109.[address] Eran Vu DO Work Phone: [facility] 12-19-2024 10:35-0400 Diastolic blood pressure 82 mm[Hg] Dr. Eran Vu DO Work Phone: [facility] 12-19-2024 10:35-0400 Systolic blood pressure 127 mm[Hg] Dr. Eran Vu DO Work Phone: [facility] 12-04-2024 08:52-0400 Body height 172.[address] Eran Vu DO Work Phone: [facility] 12-04-2024 08:52-0400 Body mass index (BMI) [Ratio] 36.3 kg/m2 Dr. Eran Vu DO Work Phone: [facility] 12-04-2024 08:52-0400 Body weight 108.[address] Eran Vu DO Work Phone: [facility] 12-04-2024 08:52-0400 Diastolic blood pressure 83 mm[Hg] Dr. Eran Vu DO Work Phone: [facility] 12-04-2024 08:52-0400 Systolic blood pressure 128 mm[Hg] Dr. Eran Vu DO Work Phone: [facility] 12-04-2024 08:07-0400 Body weight 108.[address] Eran Vu DO Work Phone: [facility] 11-24-2024 14:38-0400 Body mass index (BMI) [Ratio] 36 kg/m2 Dr. Eran Vu DO Work Phone: [facility] 11-24-2024 14:38-0400 Body weight 107.[address] Eran Vu DO Work Phone: [facility] 11-24-2024 14:38-0400 Diastolic blood pressure 89 mm[Hg] Dr. Eran Vu DO Work Phone: [facility] 11-24-2024 14:38-0400 Systolic blood pressure 134 mm[Hg] Dr. Eran Vu DO Work Phone: [facility] 11-09-2024 09:00-0400 Body height 172.[address] Eran Vu DO Work Phone: [facility] 11-09-2024 09:00-0400 Body mass index (BMI) [Ratio] 36.1 kg/m2 Dr. Eran Vu DO Work Phone: [facility] 11-09-2024 09:00-0400 Body weight 107.[address] Eran Vu DO Work Phone: [facility] 11-09-2024 09:00-0400 Diastolic blood pressure 84 mm[Hg] Dr. Eran Vu DO Work Phone: [facility] 11-09-2024 09:00-0400 Systolic blood pressure 131 mm[Hg] Dr. Eran Vu DO Work Phone: [facility] 10-11-2024 08:36-0400 Body height 172.[address] Eran Vu DO Work Phone: [facility] 10-11-2024 08:36-0400 Body mass index (BMI) [Ratio] 35.8 kg/m2 Dr. Eran Vu DO Work Phone: [facility] 10-11-2024 08:36-0400 Body weight 106.[address] Eran Vu DO Work Phone: [facility] 10-11-2024 08:36-0400 Diastolic blood pressure 84 mm[Hg] Dr. Eran Vu DO Work Phone: [facility] 10-11-2024 08:36-0400 Systolic blood pressure 128 mm[Hg] Dr. Eran Vu DO Work Phone: [facility] 10-02-2024 08:38-0400 Body weight 106.[address] Eran Vu DO Work Phone: [facility] 10-02-2024 08:38-0400 Diastolic blood pressure 86 mm[Hg] Dr. Eran Vu DO Work Phone: [facility] 10-02-2024 08:38-0400 Systolic blood pressure 140 mm[Hg] Dr. Eran Vu DO Work Phone: [facility] 10-02-2024 08:24-0400 Body height 172.[address] Eran Vu DO Work Phone: [facility] 09-27-2024 11:52-0400 Body height 172.[address] Eran Vu DO Work Phone: [facility] 09-27-2024 11:52-0400 Body mass index (BMI) [Ratio] 35.6 kg/m2 Dr. Eran Vu DO Work Phone: [facility] 09-27-2024 11:52-0400 Body weight 106.[address] Eran Vu DO Work Phone: [facility] 09-27-2024 11:52-0400 Diastolic blood pressure 86 mm[Hg] Dr. Eran Vu DO Work Phone: [facility] 09-27-2024 11:52-0400 Systolic blood pressure 140 mm[Hg] Dr. Eran Vu DO Work Phone: [facility] 09-27-2024 11:28-0400 Body mass index (BMI) [Ratio] 35.4 kg/m2 Dr. Eran Vu DO Work Phone: [facility] 09-27-2024 11:28-0400 Body weight 105.[address] Eran Vu DO Work Phone: [facility] 09-27-2024 11:28-0400 Diastolic blood pressure 84 mm[Hg] Dr. Eran Vu DO Work Phone: [facility] 09-27-2024 11:28-0400 Systolic blood pressure 136 mm[Hg] Dr. Eran Vu DO Work Phone: [facility] 09-26-2024 08:30-0400 Body height 172.[address] Eran Vu DO Work Phone: [facility] 09-26-2024 08:28-0400 Body mass index (BMI) [Ratio] 35.7 kg/m2 Dr. Eran Vu DO Work Phone: [facility] 09-26-2024 08:28-0400 Body weight 106.[address] Eran Vu DO Work Phone: [facility] 09-26-2024 08:28-0400 Diastolic blood pressure 86 mm[Hg] Dr. Eran Vu DO Work Phone: [facility] 09-26-2024 08:28-0400 Systolic blood pressure 128 mm[Hg] Dr. Eran Vu DO Work Phone: [facility] 09-14-2024 08:41-0400 Body height 172.[address] Eran Vu DO Work Phone: [facility] 09-14-2024 08:41-0400 Body mass index (BMI) [Ratio] 35.3 kg/m2 Dr. Eran Vu DO Work Phone: [facility] 09-14-2024 08:41-0400 Body weight 105.[address] Eran Vu DO Work Phone: [facility] 09-14-2024 08:41-0400 Diastolic blood pressure 86 mm[Hg] Dr. Eran Vu DO Work Phone: [facility] 09-14-2024 08:41-0400 Systolic blood pressure 142 mm[Hg] Dr. Eran Vu DO Work Phone: [facility] 08-16-2024 11:32-0400 Body height 172.[address] Eran Vu DO Work Phone: [facility] 08-16-2024 11:29-0400 Body mass index (BMI) [Ratio] 34.9 kg/m2 Dr. Eran Vu DO Work Phone: [facility] 08-16-2024 11:29-0400 Body weight 104.[address] Eran Vu DO Work Phone: [facility] 08-16-2024 11:29-0400 Diastolic blood pressure 94 mm[Hg] Dr. Eran Vu DO Work Phone: [facility] 08-16-2024 11:29-0400 Systolic blood pressure 126 mm[Hg] Dr. Eran Vu DO Work Phone: [facility] 07-14-2024 08:50-0400 Body height 172.[address] Eran Vu DO Work Phone: [facility] 07-14-2024 08:50-0400 Body mass index (BMI) [Ratio] 34.4 kg/m2 Dr. Eran Vu DO Work Phone: [facility] 07-14-2024 08:50-0400 Body weight 102.[address] Eran Vu DO Work Phone: [facility] 07-14-2024 08:50-0400 Diastolic blood pressure 95 mm[Hg] Dr. Eran Vu DO Work Phone: [facility] 07-14-2024 08:50-0400 Systolic blood pressure 146 mm[Hg] Dr. Eran Vu DO Work Phone: [facility] 06-27-2024 08:41-0400 Body mass index (BMI) [Ratio] 34.7 kg/m2 Dr. Eran Vu DO Work Phone: [facility] 06-27-2024 08:41-0400 Body weight 103.[address] Eran Vu DO Work Phone: [facility] 06-27-2024 08:41-0400 Diastolic blood pressure 80 mm[Hg] Dr. Eran Vu DO Work Phone: [facility] 06-27-2024 08:41-0400 Systolic blood pressure 124 mm[Hg] Dr. Eran Vu DO Work Phone: [facility] Encounters Encounter Date Encounter Type Care Provider Facility Start: 01-18-2025 ambulatory Eran Vu Facility:[facility] Start: 01-02-2025 End: 01-02-2025 ambulatory Eran Vu [place] [place] Start: 12-19-2024 End: 12-19-2024 Patient encounter procedure Naomi WESTBROOK -[facility] Work Phone: Start: 12-19-2024 End: 12-19-[address] Eran Vu DO Work Phone: -[facility] Start: 12-16-2024 ambulatory Eran Vu Facility:[facility] Start: 12-04-2024 End: 12-04-2024 Patient encounter procedure Naomi PERERAC -[facility] Work Phone: Start: 12-04-2024 End: 12-05-[address] Eran Vu DO Work Phone: -[facility] Start: 12-04-2024 End: 12-05-[address] Charline Alvarez MD -N[facility] Work Phone: Start: 11-24-2024 End: 11-24-2024 Patient encounter procedure Nancy Wolfe CNM -[facility] Work Phone: Start: 11-24-2024 End: 11-24-[address] Eran Vu DO Work Phone: -[facility] Start: 11-23-2024 End: 11-23-2024 ambulatory CHARLINE ALVAREZ [facility] Start: 11-09-2024 End: 11-09-[address] Kiley Haji DO -[facility] Work Phone: Start: 11-09-2024 End: 11-09-[address] Eran Vu DO Work Phone: -[facility] Start: 11-09-2024 End: 11-09-2024 ambulatory Eran Vu Facility:[facility] Start: 10-11-2024 End: 10-11-2024 Patient encounter procedure Naomi WESTBROOK -[facility] Work Phone: Start: 10-11-2024 End: 10-11-[address] Eran Vu DO Work Phone: [facility] Start: 10-03-2024 End: 10-03-2024 ambulatory ERAN VU [facility] Start: 10-02-2024 End: 10-02-[address] Charline Alvarez MD -[facility] Work Phone: Start: 10-02-2024 End: 10-02-[address] Eran Vu DO Work Phone: [facility] Start: 09-28-2024 End: 09-28-[address] Eran Vu DO Work Phone: -[facility] Start: 09-28-2024 End: 09-28-[address] Kiley Haji DO -[facility] Start: 09-27-2024 End: 09-27-[address] Kiley Haji DO -[facility] Work Phone: Start: 09-27-2024 End: 09-28-[address] Eran Vu DO Work Phone: -[facility] Start: 09-26-2024 End: 09-26-2024 Patient encounter procedure Naomi Hendrix [employer]-C -[facility] Work Phone: Start: 09-26-2024 End: 09-26-[address] Eran Vu DO Work Phone: -[facility] Start: 09-26-2024 End: 09-26-2024 ambulatory Naomi Hendrix NP Facility:[facility] Start: 09-21-2024 End: 09-21-2024 ambulatory ERAN VU [facility] Start: 09-14-2024 End: 09-14-[address] Kiley Haji DO -[facility] Work Phone: Start: 09-14-2024 End: 09-14-[address] Eran Vu DO Work Phone: [facility] Start: 08-16-2024 End: 08-16-[address] Kiley Haji DO -[facility] Work Phone: Start: 08-16-2024 End: 08-16-[address] Eran Vu DO Work Phone: [facility] Work Phone: Start: 08-16-2024 End: 08-16-2024 ambulatory Kiley Haji Facility:[facility] Start: 07-14-2024 End: 07-14-2024 Patient encounter procedure Nancy Wolfe CNM -[facility] Work Phone: Start: 07-14-2024 End: 07-14-[address] Eran Vu DO Work Phone: [facility] Work Phone: Start: 07-14-2024 End: 07-14-2024 ambulatory Eran Vu Facility:[facility] Start: 06-27-2024 End: 06-27-[address] Charline Alvarez MD -[facility] Work Phone: Start: 06-27-2024 End: 06-27-2024 ambulatory Eran Vu Facility:[facility] [place] Start: 12-01-2021 End: 12-01-2021 ambulatory [facility] Work Phone: Start: 12-01-2021 End: 12-01-2021 Patient encounter procedure [facility]-Laboratory, Specimen Procedures Date Procedure Procedure Detail Performing Clinician Start: 11-09-2024 Serologic test for syphilis Dr. Eran Vu DO Work Phone: Start: 09-28-2024 Creatinine measureme nt, [address] Eran Vu DO Work Phone: Start: 07-14-2024 Liquid based cervica l cytology screening Dr. Eran Vu DO Work Phone: Comment on above: NEGATIVE FOR INTRAEP ITHELIAL LESION OR MALIGNANCY. This liquid based Th inPrep(R) pap test was screened withthe use of an image guided system. The HPV DNA reflex c riteria were not met with this specimenresult therefore, no HPV testing was performed.Performed at: [address] [id number] Director: Sadie Kohli PhD, Phone: [phone] at: [address] [id number] Director: Echo Solano MD, Phone: [phone] Start: 07-14-[address] Eran Vu DO Work Phone: Start: 07-14-2024 Hepatitis C antibody measurement Dr. Eran Vu DO Work Phone: Comment on above: Reactive: Presumptiv e evidence of antibodies to HCV. Follow CDC recommendations for supplemental testing.Non-Reactive: Antibodies to HCV were not detected; does not exclude the possibility of exposure to HCVReactive Results are presumptive evidence of antibodies to HCV. Follow CDC recommendations for supplemental testing.Order confirmation testing: HCV Quant by PCR testing - HCVPCR #[id number] Non Reactive: < 0.8 Equivocal: >/= 0.8 to < 1.0 Reactive: >/= 1.0The CDC requires that a reactive/equivocal HCV antibody result be sent out for confirmation. HCV Quant by PCR testing. Start: 07-14-[address] Eran Vu DO Work Phone: Comment on above: Antibody Result: Int erpretationNon-Reactive: Non- ImmuneReactive: ImmuneThe following results were obtained with the [employer] Rubella IgG assay. Results from assays of other manufacturers cannot be used interchangeably. Start: 07-14-2024 Serologic test for syphilis Dr. Eran Vu DO Work Phone: Plan of Treatment Date Care Activity Detail Author Start: 12-04-2024 End: 12-04-2024 Patient encounter procedure Gestational diabetes -[facility] Work Phone: Start: 12-04-2024 Registered Recurring Registered Recurring -Nutritional Services Work Phone: Start: 11-09-2024 CBC W Auto Differential panel - Blood [facility] Start: 11-09-2024 Measurement of glucose 2 hours after glucose challenge for glucose tolerance test [facility] Start: 11-09-2024 Serologic test for syphilis [facility] Start: 11-09-2024 [facility] Start: 10-02-2024 [facility] Start: 09-26-2024 CBC W Auto Differential panel - Blood [facility] Start: 09-26-2024 Comprehensive metabolic 1999 panel - Serum or Plasma [facility] Start: 09-26-2024 Protein/Creatinine [Ratio] in Urine [facility] Start: 08-16-2024 [facility] metabolic 1999 panel - Serum or Plasma [facility] Start: 07-14-2024 Liquid based cervical cytology screening [facility] Alanine aminotransfe rase [Enzymatic activity/volume] in Serum or Plasma [facility] Alanine aminotransfe rase [Enzymatic activity/volume] in Serum or Plasma [facility] Albumin [Mass/volume ] in Serum or Plasma [facility] Albumin [Mass/volume ] in Serum or Plasma [facility] Alkaline phosphatase [Enzymatic activity/volume] in Serum or Plasma [facility] Alkaline phosphatase [Enzymatic activity/volume] in Serum or Plasma [facility] Anion gap in Serum or Plasma [facility] Anion gap in Serum or Plasma [facility] Bilirubin, total measurement [facility] Bilirubin, total measurement [facility] BUN/Creatinine ratio [facility] BUN/Creatinine ratio [facility] Calcium [Mass/volume ] in Serum or Plasma [facility] Calcium [Mass/volume ] in Serum or Plasma [facility] Carbon dioxide, tota l [Moles/volume] in Central venous blood [facility] Carbon dioxide, tota l [Moles/volume] in Central venous blood [facility] CBC W Auto Different ial panel - Blood [facility] Creatinine [Mass/vol ume] in Serum or Plasma [facility] Creatinine [Mass/vol ume] in Serum or Plasma [facility] Creatinine [Mass/vol ume] in Urine collected for unspecified duration [facility] Erythrocyte mean cor puscular volume determination [facility] Erythrocyte mean cor puscular volume determination [facility] Glucose [Mass/volume ] in Serum or Plasma [facility] Glucose [Mass/volume ] in Serum or Plasma [facility] Hematocrit [Volume F raction] of Blood [facility] Hematocrit [Volume F raction] of Blood [facility] Hemoglobin [Mass/vol ume] in Blood [facility] Hemoglobin [Mass/vol ume] in Blood [facility] Leukocytes [#/volume ] in Blood [facility] Leukocytes [#/volume ] in Blood [facility] Mean corpuscular hem oglobin concentration determination [facility] Mean corpuscular hem oglobin concentration determination [facility] Mean corpuscular hem oglobin determination [facility] Mean corpuscular hem oglobin determination [facility] Measurement of gluco se 2 hours after glucose challenge for glucose tolerance test [facility] Measurement of renal function [facility] Measurement of renal function [facility] Neutrophil count [facility] Neutrophil count [facility] Neutrophil percent differential count [facility] Neutrophil percent differential count [facility] Path report.final Dx Spec [facility] Platelets [#/volume] in Blood [facility] Platelets [#/volume] in Blood [facility] Potassium measurement [facility] Potassium measurement [facility] Protein [Mass/volume ] in Urine [facility] Protein/Creatinine [ Mass Ratio] in Urine [facility] Protein/Creatinine [ Ratio] in Urine [facility] Red blood cell count [facility] Red blood cell count [facility] Red cell distributio n width determination [facility] Red cell distributio n width determination [facility] Serologic test for syphilis [facility] Serum chloride measurement [facility] Serum chloride measurement [facility] Sodium measurement [facility] Sodium measurement [facility] Total protein measurement [facility] Total protein measurement [facility] Urea nitrogen [Mass/ volume] in Serum or Plasma [facility] Urea nitrogen [Mass/ volume] in Serum or Plasma [facility] Immunizations Immunization Date Immunization Notes Care Provider Fa cility 11-24-2024 tetanus toxoid, redu stanley diphtheria toxoid, and acellular pertussis vaccine, adsorbed Dr. Eran Vu DO Work Phone: [facility] Payers Date Payer Category Payer Self-pay [id number] 2024 Unknown [id number] 2024 Unknown [id number] 2000 Unknown [id number] . 84.1.144688.3.579.2.479 2000 Unknown [id number] . 84.1.123135.3.579.2.479 1973 Unknown [id number] ..1.630949.3.579.2.479 Unknown [facility] [id number] Unknown [id number] .16.8 40.1.898980.3.579.2.462 Unknown [id number] 2.16.8 40.1.402592.3.579.2.462 Unknown [id number] 2.16.8 40.1.499334.3.579.2.462 Unknown [id number] 2.16.8 40.1.253061.3.579.2.462 Unknown [id number] 2.16.8 40.1.278164.3.579.2.462 Unknown [id number] 2.16.8 40.1.589959.3.579.2.462 Unknown [id number] 2.16.8 40.1.046944.3.579.2.462 Unknown [id number] 2.16.8 40.1.003492.3.579.2.462 Unknown [id number] 2.16.8 40.1.184025.3.579.2.462 Unknown [id number] 2.16.8 40.1.039883.3.579.2.462 Unknown [id number] 2.16.8 40.1.370616.3.579.2.462 Unknown [id number] 2.16.8 40.1.605333.3.579.2.462 Unknown [id number] 2.16.8 40.1.619747.3.579.2.462 Unknown [id number] 2.16.8 40.1.515539.3.579.2.462 Unknown [id number] 2.16.8 40.1.186305.3.579.2.462 Unknown [id number] 2.16.8 40.1.343672.3.579.2.462 Unknown [id number] 2.16.8 40.1.516008.3.579.2.462 Unknown [id number] 2.16.8 40.1.191868.3.579.2.462 Unknown [id number] 2.16.8 40.1.903767.3.579.2.462 Unknown [id number] 2.16.8 40.1.430629.3.579.2.462 Unknown [id number] 2.16.8 40.1.396904.3.579.2.462 Social History Date Type Detail Facility Start: 08-01-2016 Tobacco smoking stat us NHIS Unknown if ever smoked [facility] Work Phone: Start: 2000 Sex Assigned At Female W [facility] Start: 06-27-2024 End: 08-16-2024 Tobacco smoking status NHIS Never smoked tobacco (finding) [facility] Sex Female [facility] Clinical Notes 06-27-2024 to 12-19-2024 Note Date & Type Note Facility 12-19-2024 Progress note [facility] 12-04-2024 Progress note [facility] 11-24-2024 Progress note [facility] 11-24-2024 Progress note Note Date/Time November 24, 2024 3:01pm [facility] [address], [address] [place] [address] OFFICE VISIT Date of Service: 11/24/24 MR#: [id number] Acct: [id number] Name: JOSE POLLACK Rep #: [id number] : 2000 Provider: NELLY Wolfe Age/Sex: 24/F [place] [facility] [place] Status: Signed Intake Vital Signs 11/09/24 09:00 11/20/24 10:49 11/24/24 14:38 Height 5 ft 8 in 5 ft 8 in 5 ft 8 in Weight: 237 lb 3 oz BMI 36.0 BP 134/89 H Intake Visit Reasons: 28wk ob Assistant Center Manager Required: No Is patient in pain?: No Allergies amoxicillin Allergy (Verified 11/24/24 14:38) Hives Penicillins Allergy (Verified 11/24/24 14:38) Rash Medications 3 ?Medication ?Instructions ?Recorded ?Confirmed ?Type docosahexaenoic acid 200 mg mg PO 06/27/24 11/24/24 Hi story capsule ( DHA) flash glucose scanning reader #1 ea 11/10/24 11/24/24 Rx (FreeStyle Rhonda 2 [place]) flash glucose sensor (FreeStyle #1 ea 11/10/24 5 Rx Rhonda 2 Sensor kit) Last Menstrual Period: 05/11/24 Zika: Zika virus screening: Negative : No Have you fallen in the past year?: No PFSH PFSH Medical History Seasonal allergies Surgical History S/P wisdom tooth extraction S/P tonsillectomy and adenoidectomy Family History Brother Asthma Father Diabetes Type 2 Grandfather Diabetes Type 2 Social History adopted: No household members: spouse current occupational status: employed current occupation: [employer] current occupational exposures/hazards: No pets and animals: Yes pets and animals: dog(s) history of recent travel: Yes ([place] & [place] & [place] - Apr 2024) out of state: No out of country: Yes sexually active: Yes Smoking Status: Never smoker alcohol intake: never substance use type: does not use well-balanced diet: daily or most days caffeine: No eating out: 1-3 times/week during the past year weight has: remained stable what type of physical activity do you participate in: walking frequency: 3-4 times per week duration: 15-30 minutes/day stephanie/gnosticist: Yazidism seatbelt use: always do you feel safe at home: Yes additional social history: : Joao Orosco History 1 Elective abortions Hx Para 0 Spontaneous abortions 0 Hx # Term Pregnancies Ectopic pregnancies Hx # Pregnancies Multiple births # of living children HPI 28wk ob Details: JOSE POLLACK is a 24 year old who presents for routine OB visit. OB Visit ED Calculator Estimated Delivery Date Method Current WG Current Estimate 02/15/25 LMP (Certain) 28w 1d Other Estimates 02/19/25 Ultrasound #1 27w 4d Expected Delivery Route/Plan Labor Preferences- CB/BF classes: yes labor support person: Joao labor intervention preferences: [] pain management options preferred: [] cut cord/dad catch: [] : yes PP control planned: [] discussed possible routes of delivery and associated risks: [] special requests: [] Specific Issue/Plans Covid status: [] Flu vaccine: [] Tdap vaccine: [] Rhogam: [] LARC form signed: yes Problem list reviewed and updated with the most current plan of care details and appropriate orders placed. Relevant counseling for the gestational age provided. Continue routine care and follow up unless otherwise noted in visit notes/problem list details Initial Weight: Not Recorded Date -?-?-?-?-?-?-?-?-?-?-?-?- EGA Weight BP Urine Prot -?-?-?-?-?-?-?-?-?-?-?-?- Glucose FHR FuHt Pres Dilation -?-?-?-?-?-?-?-?-?-?-?-?- Effaced St Visit Note 07/14/24 -?-?-?-?-?-?-?-?-?-?-?-?- 9w 1d 226 lb 4 oz 146/95 -?-?-?-?-?-?-?-?-?-?-?-?- 171 -?-?-?-?-?-?-?-?-?-?-?-?- KW- CRL cons wit h dates. declines NIPT 08/16/24 -?-?-?-?-?-?-?-?-?-?-?-?- 13w 6d 229 lb 8 oz 126/94 Nega tive -?-?-?-?-?-?-?-?--?-?-?-?- Negative 160 -?-?-?-?-?-?-?-?-?-?-?-?- JV- patient stat es that she is feeling better BP was elevated initially. ordering baseline PIH labs and she will start taking her bp at home. 09/14/24 -?-?-?-?-?-?-?-?-?-?-?-?- 18w 0d 232 lb 6 oz 142/86 Nega tive -?-?-?-?-?-?-?-?-?-?-?-?- Negative 154 -?-?-?-?-?-?-?-?-?-?-?-?- JV- bp's at home are 120's/70's. not sure if feeling movement yet. has anatomy scan 09/21. She will bring in her cuff from home next visit to compare. repeat bp was the same 09/26/24 -?-?-?-?-?-?-?-?-?-?-?-?- 19w 5d 235 lb 2 oz 128/86 Nega tive -?-?-?-?-?-?-?-?-?-?-?-?- Negative -?-?-?-?-?-?-?-?-?--?-?-?- Nurse visit only :Variable BPs on home machine and high. No headache, vision changes. Small cuff, will get new machine. Pre E labs. 09/27/24 -?-?-?-?-?-?-?-?-?-?-?-?- 19w 6d 233 lb 2 oz 136/84 Nega tive -?-?-?-?-?-?-?-?-?-?-?-?- Negative -?-?-?-?-?-?-?-?-?-?-?-?- nurse visit only today for bp check due to headache 10/02/24 -?-?-?-?-?-?-?-?-?-?-?-?- 20w 4d 234 lb 140/86 -?-?-?-?-?-?-?-?-?-?-?-?- 145 -?-?-?-?-?-?-?-?-?-?-?-?- SM- nl bps at me nl labs and 24 hour urine. no vb lof good fm no regular ctx 10/11/24 -?-?-?-?-?-?-?-?-?-?-?-?- 21w 6d 235 lb 8 oz 128/84 Nega tive -?-?-?-?-?-?--?-?-?-?-?-?- Negative 155 -?-?-?-?-?-?-?-?-?-?-?-?- MH-No VB. Good F M. Nausea resolved. No concerns 11/09/24 -?-?-?-?-?-?-?-?-?-?-?-?- 26w 0d 237 lb 9 oz 131/84 Nega tive -?-?-?-?-?-?-?-?-?-?-?-?- Negative 145 -?-?-?-?-?-?-?-?-?-?-?-?- JV- did glucose test today. no complaints. JV- did glucose test today. no complaints. has appt for placenta location on 11/2311/24/24 -?-?-?-?-?-?-?-?-?-?-?-?- 28w 1d 237 lb 3 oz 134/89 -?-?-?-?-?-?-?-?-?-?-?-?- 150 28 -?-?-?-?-?-?-?-?-?-?-?-?- KW- reviewed blo od sugars and within normal limits. no vb/lof/ctx. good fm LARC and tdap today. CBE classes set up. 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 had follow up US with mfm and placenta moved. ACOG First Trimester First Trimester: Desire for , Alcohol, Tobacco Cessation, Illicit/Recreational Drug/Substance Use, Intimate Partner Violence, Barriers to care, Anticipated Course of Care, Use of Any medications, Sexual activity, Exercise, Dental Care, Sauna/Hot tub use, Seat Belt use, Childbirth classes/Hospital facilities, Travel, Indications for Ultrasound and Screening for Aneuploidy; Discussed Unstable Housing, Discussed Communication Barriers, Discussed Environmental/Work Hazards, Discussed Toxoplasmosis Precations and Discussed Second Trimester Second Trimester: Signs and Symptoms of Labor, Selecting a care provider, Reproductive Life Planning & Contreception, Care Planning, Depression/Anxiety and Intimate Partner Violence; Discussed Tobacco Cessation Third Trimester Third Trimester: Pain Management Plans, Labor support person(s), Immediate Larc, Signs and Symptoms of Preeclampsia, Feeding No , [place] Education and Family Medical Leave or Disability Forms ROS Const Reports system reviewed and no additional complaints, except as documented Eyes Reports system reviewed and no additional complaints, except as documented ENT Reports system reviewed and no additional complaints, except as documented Card Reports system reviewed and no additional complaints, except as documented Resp Reports system reviewed and no additional complaints, except as documented GI Reports system reviewed and no additional complaints, except as documented, Denies nausea and Denies vomiting Reports system reviewed and no additional complaints, except as documented Musc Reports system reviewed and no additional complaints, except as documented Skin/Breast Reports system reviewed and no additional complaints, except as documented Neuro Yes system reviewed and no additional complaints, except as documented Psych Reports system reviewed and no additional complaints, except as documented Endo Reports system reviewed and no additional complaints, except as documented Osmel/Lymph Reports system reviewed and no additional complaints, except as documented Aller/Immun Reports system reviewed and no additional complaints, except as documented Exam Const General: cooperative, healthy appearing and no acute distress Orientation: alert, awake and oriented x3 Neck Neck: normal visual inspection and full ROM Resp Effort & Inspection: normal respiratory effort, able to speak in complete sentences and symmetric chest movement GI Inspection: normal to inspection Palpation: soft and other Other: gravid Skin General: no rashes or lesions noted Neuro General: patient alert, patient awake and patient oriented x3 Cognition: normal cognition Speech: speech normal Gait: normal gait Motor: muscle tone normal throughout Extrem General: normal to inspection and full ROM Psych Appearance: grossly normal Mental Status: mental status grossly normal Mood: congruent mood Affect: normal affect Speech and Movement: speech and movement normal Attitude: cooperative Thought Process: normal Thought Content: normal Judgment: judgment good Immunizations Adacel(Tdap Adolesn/Adult)(PF) 2 Lf-(2.5-5-3-5)-5 Lf/0.5 mL IM syringe Performing Provider: Nancy Wolfe CNM Performing Location: [facility] Administered by: Kim Burkett on 11/24/24 14:47 Dose Route Admin Location Dispensed Lot Number Expiration Date Pack age NDC NDC Job Site Supervisor 0.5 mL IM Left Arm (SQ) 0.5 mL [id number] 10/06/26 [id number] [employer]- PASTEUR VIS Given Date VIS Provided VIS Publication Date 11/24/24 Single Vaccine 24 Eligibility Eligibility Date Funding Source Not Applicable Coding Level of Care Code OB Routine Diagnoses Gestational diabetes O24.419 White coat syndrome without hypertension R03.0 Low lying placenta nos or without hemorrhage, second trimester O44.42 Obesity affecting in second trimester, unspecified obesity type O99.212 Obesity type affecting : unspecified obesity Trimester: second trimester Supervision of high risk in second trimester O09.92 Trimester: second trimester 28 weeks gestation of Z3A.28 Weeks of gestation: 28 weeks Assessment and Plan Assessment and Plan (1) Gestational diabetes: Status: Acute Comment: nutrition consult, glucose testing fasting and 2 HR PP (2) White coat syndrome without hypertension: Status: Acute Comment: all normal bps at home. (3) Low lying placenta nos or without hemorrhage, second trimester: Status: Acute Comment: 28 week repeat US (4) Obesity affecting : Status: Acute Qualifiers: Obesity type affecting : unspecified obesity Trimester: second trimester Qualified Code(s): O99.212 - Obesity complicating , second trimester Comment: BMI 34.7; HgBA1C ordered w/NOB (5) Supervision of high-risk : Status: Acute Qualifiers: Trimester: second trimester Qualified Code(s): O09.92 - Supervision of high risk , unspecified, second trimester Comment: PRR ED 02/15/25, boy : Joao (6) : Status: Acute Qualifiers: Weeks of gestation: 28 weeks Qualified Code(s): Z3A.28 - 28 weeks gestation of Comment: Declines genetic/carrier testing Orders: Orders POC Urinalysis 2 Dip (Clinic) Today Tdap Immunization Today Z23 - Encounter for immunization Plan Details Additional Comments: ACOG trimester education reviewed and updated. see problem list details for updated plan management information and see below for orders placed at this visit. GA appropriate handout given. Clinical Quality Measures Falls Risk Screening/Assistive Devices Have you fallen in the past year?: No 11/24/24 1502 <Electronically signed by Nancy contreras CNM> Date _ Nancy Wolfe CNM Cosigner Signature: Date (if applicable) CC: ~ [facility] Work Phone: 1(146) 619-569709-04-2025 [facility] [address] [place] [address], [address] [place] [address] OFFICE VISIT Date of Service: 11/09/24 MR#: [id number] Acct: [id number] Name: JOSE POLLACK Rep #: [id number] : 2000 Provider: Dr. Lucille Haji DO Age/Sex: 24/F [place] [facility] [place] Status: Signed Intake Vital Signs 08/16/24 11:32 08/16/24 12:02 10/11/24 08:36 11/09/24 09:00 Height 5 ft 8 in 5 ft 8 in 5 ft 8 in 5 ft 8 in Weight: 237 lb 9 oz BMI 36.1 BP 131/84 H Intake Visit Reasons: 26wk ob/glucose Assistant Center Manager Required: No Is patient in pain?: No Allergies amoxicillin Allergy (Verified 11/09/24 09:00) Hives Penicillins Allergy (Verified 11/09/24 09:00) Rash Medications ?Medication ?Instructions ?Recorded ?Confirmed ?Type docosahexaenoic acid 200 mg mg PO 06/27/24 11/09/24 Hi story capsule ( DHA) Last Menstrual Period: 05/11/24 Zika: Zika virus screening: Negative : No PFSH PFSH Medical History Seasonal allergies Surgical History S/P wisdom tooth extraction S/P tonsillectomy and adenoidectomy Family History Brother Asthma Father Diabetes Type 2 Grandfather Diabetes Type 2 Social History adopted: No household members: spouse current occupational status: employed current occupation: [employer] current occupational exposures/hazards: No pets and animals: Yes pets and animals: dog(s) history of recent travel: Yes ([place] & [place] & [place] - Apr 2024) out of state: No outof country: Yes sexually active: Yes Smoking Status: Never smoker alcohol intake: never substance use type: does not use well-balanced diet: daily or most days caffeine: No eating out: 1-3 times/week during the past year weight has: remained stable what type of physical activity do you participate in: walking frequency: 3-4 times per week duration: 15-30 minutes/day stephanie/gnosticist: Yazidism seatbelt use: always do you feel safe at home: Yes additional social history: : Joao Orosco History 1 Elective abortions Hx Para 0 Spontaneous abortions 0 Hx # Term Pregnancies Ectopic pregnancies Hx # Pregnancies Multiple births # of living children HPI 26wk ob/glucose Details: JOSE POLLACK is a 24 year old who presents for routine OB visit. OB Visit ED Calculator Estimated Delivery Date Method Current WG Current Estimate 02/15/25 LMP (Certain) 26w 0d Other Estimates 02/19/25 Ultrasound #1 25w 3d Expected Delivery Route/Plan Labor Preferences- CB/BF classes: yes labor support person: Joao labor intervention preferences: [] pain management options preferred: [] cut cord/dad catch: [] : yes PP control planned: [] discussed possible routes of delivery and associated risks: [] special requests: [] Specific Issue/Plans Covid status: [] Flu vaccine: [] Tdap vaccine: [] Rhogam: [] LARC form signed: yes Problem list reviewed and updated with the most current plan of care details and appropriate ordersplaced. Relevant counseling for the gestational age provided. Continue routine care and follow up unless otherwise noted in visit notes/problem list details Initial Weight: Not Recorded Date -?-?-?-?-?-?-?-?-?-?-?-?- EGA Weight BP Urine Prot -?-?-?-?-?-?-?-?-?-?-?-?- Glucose FHR FuHt Pres Dilation -?-?-?-?-?-?-?-?-?-?-?-?- Effaced St Visit Note 07/14/24 -?-?-?-?-?-?-?-?-?-?-?-?- 9w 1d 226 lb 4 oz 146/95 -?-?-?-?-?-?-?-?--?-?-?-?- 171 -?-?-?-?-?-?-?-?-?-?-?-?- KW- CRL cons wit h dates. declines NIPT 08/16/24 -?-?-?-?-?-?-?-?-?-?-?-?- 13w 6d 229 lb 8 oz 126/94 Nega tive -?-?-?-?-?-?-?-?-?-?-?-?- Negative 160 -?-?-?-?-?-?-?-?-?-?-?-?- JV- patient stat es that she is feeling better BP was elevated initially. ordering baseline PIH labs and she will start taking her bp at home. 09/14/24 -?-?-?-?-?-?-?-?-?-?-?-?- 18w 0d 232 lb 6 oz 142/86 Nega tive -?-?-?-?-?-?-?-?-?-?-?-?- Negative 154 -?-?-?-?-?-?-?-?-?-?-?-?- JV- bp's at home are 120's/70's. not sure if feeling movement yet. has anatomy scan 09/21. She will bring in her cuff from home next visit to compare. repeat bp was the same 09/26/24 -?-?-?-?-?-?-?-?-?-?-?-?- 19w 5d 235 lb 2 oz 128/86 Nega tive -?-?-?-?-?-?-?-?-?-?-?-?- Negative -?-?-?-?-?-?-?-?-?-?-?-?- Nurse visit only :Variable BPs on home machine and high. No headache, vision changes. Small cuff, will get new machine. Pre E labs. 09/27/24 -?-?-?-?-?-?-?-?-?-?-?-?- 19w 6d 233 lb 2 oz 136/84 Nega tive -?-?-?-?-?-?-?-?-?-?-?-?- Negative -?-?-?-?-?-?-?-?-?-?-?-?- nurse visit only today for bp check due to headache 10/02/24 -?-?-?-?-?-?-?-?-?-?-?-?- 20w 4d 234 lb 140/86 -?-?-?-?-?-?-?-?-?-?-?-?- 145 -?-?-?-?-?-?-?-?-?-?-?-?- SM- nl bps at [facility] nl labs and 24 hour urine. no vb lof good fm no regular ctx 10/11/24 -?-?-?-?-?-?-?-?-?-?-?-?- 21w 6d 235 lb 8 oz 128/84 Nega tive -?-?-?-?-?-?-?-?-?-?-?-?- Negative 155 -?-?-?-?-?-?-?-?-?-?-?-?- MH-No VB. Good F M. Nausea resolved. No concerns 11/09/24 -?-?-?-?-?-?-?-?-?-?-?-?- 26w 0d 237 lb 9 oz 131/84 Nega tive -?-?-?-?-?-?-?-?-?-?-?-?- Negative 145 -?-?-?-?-?-?-?-?-?-?-?-?- JV- did glucose test today. no complaints. JV- did glucose test today. no complaints. has appt for placenta location on 11/23 ACOG First Trimester First Trimester: Desire for , Alcohol, Tobacco Cessation, Illicit/Recreational Drug/Substance Use, Intimate Partner Violence, Barriers to care, Anticipated Course of Care, Use of Any medications, Sexual activity, Exercise, Dental Care, Sauna/Hot tub use, Seat Belt use, Childbirth c [place]/Hospital facilities, Travel, Indications for Ultrasound and Screening for Aneuploidy; Discussed Unstable Housing, Discussed Communication Barriers, Discussed Environmental/Work Hazards, Discussed Toxoplasmosis Precations and Discussed Second Trimester Second Trimester: Signs and Symptoms of Labor, Selecting a care provider, Reproductive Life Planning & Contreception, Care Planning, Depression/Anxiety and Intimate Partner Violence; Discussed Tobacco Cessation Third Trimester Third Trimester: Pain Management Plans, Labor support person(s), Immediate Larc, Signs and Symptoms of Preeclampsia, Feeding No , [place] Education and Family Medical Leave or Disability Forms Results POC Urinalysis 2 Dip (Clinic) Office Urine Glucose Negative Last Edit by Ashwini Sunshine on 11/09/24 09: 08 Office Urine Protein Negative Last Edit by Ashwini Sunshine on 11/09/24 09: 08 Coding Level of Care Code OB Routine Diagnoses White coat syndrome without hypertension R03.0 Low lying placenta nos or without hemorrhage, second trimester O44.42 Obesity affecting in second trimester, unspecified obesity type O99.212 Obesity type affecting : unspecified obesity Trimester: second trimester Supervision of high risk in second trimester O09.92 Trimester: second trimester 26 weeks gestation of Z3A.26 Weeks of gestation: 26 weeks Assessment and Plan Assessment and Plan (1) White coat syndrome without hypertension: Status: Acute Comment: all normal bps at home. (2) Low lying placenta nos or without hemorrhage, second trimester: Status: Acute Comment: 28 week repeat US (3) Obesity affecting : Status: Acute Qualifiers: Obesity type affecting : unspecified obesity Trimester: second trimester Qualified Code(s): O99.212 - Obesity complicating , second trimester Comment: BMI 34.7; HgBA1C ordered w/NOB (4) Supervision of high-risk : Status: Acute Qualifiers: Trimester: second trimester Qualified Code(s): O09.92 - Supervision of high risk , unspecified, second trimester Comment: PRR ED 02/15/25, boy : Joao (5) : Status: Acute Qualifiers: Weeks of gestation: 26 weeks Qualified Code(s): Z3A.26 - 26 weeks gestation of Comment: Declines genetic/carrier testing Orders: Orders POC Urinalysis 2 Dip (Clinic) Today 11/09/24 0917 e Doris DO> Date _ Kiley [facility] Signature: Date (if applicable) CC: ~ [facility]07-10-2025 Evaluation note* Diagnosis Onset Date Resolution Status Admit Date Obesity affecting acute September 14, 2024 8:37am acute September 14 8:37am Supervision of high-risk acute September 14, 2024 8:37am Obesity affecting acute September 26, 2024 8:23am acute September 26 8:23am Supervision of high-risk acute September 26, 2024 8:23am Elevated blood pressure reading resolved September 26, 2024 8:23am Low lying placenta nos or without hemorrhage, second trimester resolved September 26, 2024 8:23am Obesity affecting acute September 27, 2024 11:27am acute September 27 11:27am Supervision of high-risk acute September 27, 2024 11:27am Elevated blood pressure reading resolved September 27, 2024 11:27am Low lying placenta nos or without hemorrhage, second trimester resolved September 27, 2024 11:27am Proteinuria affecting resolved September 27, 2024 11:27am Obesity affecting acute October 02, 2024 8:17am acute October 02 8:17am Supervision of high-risk acute October 02, 2024 8:17am White coat syndrome without hypertension acute October 02, 2024 8:17am Low lying placenta nos or without hemorrhage, second trimester resolved October 02, 2024 8:17am Obesity affecting acute October 11, 2024 8:31am acute October 11 8:31am Supervision of high-risk acute October 11, 2024 8:31am White coat syndrome without hypertension acute October 11, 2024 8:31am Low lying placenta nos or without hemorrhage, second trimester resolved October 11, 2024 8:31am Obesity affecting acute November 09, 2024 8:53am acute November 09, 2024 8:53am Supervision of high-risk acute November 09 8:53am White coat syndrome without hypertension acute November 09 8:53am Low lying placenta nos or without hemorrhage, second trimester resolved November 09 8:53am Gestational diabetes acute Nov 2:34pm Obesity affecting acute November 24, 2024 2:34pm acute November 2:34pm Supervision of high-risk acute November 24, 2024 2:34pm White coat syndrome without hypertension acute November 24, 2024 2:34pm Low lying placenta nos or without hemorrhage, second trimester resolved November 24, 2024 2:34pm Gestational diabetes acute Nov 8:55am Obesity affecting acute December 04, 2024 8:55am acute November 8:55am Supervision of high-risk acute December 04, 2024 8:55am White coat syndrome without hypertension acute December 04, 2024 8:55am Gestational diabetes acute 2024 10:34am Obesity affecting acute December 19, 2024 10:34am acute December 19, 2024 10:34am Supervision of high-risk acute December 19 10:34am White coat syndrome without hypertension acute December 19 10:34am [facility] Work Phone: 1(813) 462-885806-11-2025 Evaluation note* Diagnosis Onset Date Resolution Status Admit Date Obesity affecting acute August 16, 2024 11:27am acute August 16 11:27am Supervision of high-risk acute August 16, 2024 11:27am Obesity affecting acute September 14, 2024 8:37am acute September 14 8:37am Supervision of high-risk acute September 14, 2024 8:37am Obesity affecting acute September 26, 2024 8:23am acute September 26 8:23am Supervision of high-risk acute September 26, 2024 8:23am Elevated blood pressure reading resolved September 26, 2024 8:23am Low lying placenta nos or without hemorrhage, second trimester resolved September 26, 2024 8:23am Obesity affecting acute September 27, 2024 11:27am acute September 27 11:27am Supervision of high-risk acute September 27, 2024 11:27am Elevated blood pressure reading resolved September 27, 2024 11:27am Low lying placenta nos or without hemorrhage, second trimester resolved September 27, 2024 11:27am Proteinuria affecting resolved September 27, 2024 11:27am Obesity affecting acute October 02, 2024 8:17am acute October 02 8:17am Supervision of high-risk acute October 02, 2024 8:17am White coat syndrome without hypertension acute October 02, 2024 8:17am Low lying placenta nos or without hemorrhage, second trimester resolved October 02, 2024 8:17am Obesity affecting acute October 11, 2024 8:31am acute October 11 8:31am Supervision of high-risk acute October 11, 2024 8:31am White coat syndrome without hypertension acute October 11, 2024 8:31am Low lying placenta nos or without hemorrhage, second trimester resolved October 11, 2024 8:31am Obesity affecting acute November 09, 2024 8:53am acute November 09, 2024 8:53am Supervision of high-risk acute November 09 8:53am White coat syndrome without hypertension acute November 09 8:53am Low lying placenta nos or without hemorrhage, second trimester resolved November 09 8:53am Gestational diabetes acute Nov 2:34pm Obesity affecting acute November 24, 2024 2:34pm acute November 2:34pm Supervision of high-risk acute November 24, 2024 2:34pm White coat syndrome without hypertension acute November 24, 2024 2:34pm Low lying placenta nos or without hemorrhage, second trimester resolved November 24, 2024 2:34pm Gestational diabetes acute Nov 8:55am Obesity affecting acute December 04, 2024 8:55am acute November 8:55am Supervision of high-risk acute December 04, 2024 8:55am White coat syndrome without hypertension acute December 04, 2024 8:55am [facility] Work Phone: 1(228) 302-445406-11-2025 [facility] [address] [place] [address], [address] [place] [address] OFFICE VISIT Date of Service: 08/16/24 MR#: [id number] Acct: [id number] Name: JOSE KELLY Rep #: [id number] : 2000 Provider: Dr. Lucille Haji DO Age/Sex: 23/F [place] [facility] [place]: Signed Intake Vital Signs 07/14/24 08:50 08/16/24 11:29 08/16/24 11:32 Height 5 ft 8 in 5 ft 8 in 5 ft 8 in Weight: 229 lb 8 oz BMI 34.9 BP 126/94 H Intake Visit Reasons: 13wk OB Assistant Center Manager Required: No Is patient in pain?: No Allergies amoxicillin Allergy (Verified 08/16/24 11:29) Hives Penicillins Allergy (Verified 08/16/24 11:29) Rash Medications ?Medication ?Instructions ?Recorded ?Confirmed ?Type docosahexaenoic acid 200 mg mg PO 06/27/24 08/16/24 Hi story capsule ( DHA) Last Menstrual Period: 05/11/24 Zika: Zika virus screening: Negative : No PFSH PFSH Medical History Seasonal allergies Surgical History S/P wisdom tooth extraction S/P tonsillectomy and adenoidectomy Family History Brother Asthma Father Diabetes Type 2 Grandfather Diabetes Type 2 Social History adopted: No household members: spouse current occupational status: employed current occupation: [employer] current occupational exposures/hazards: No pets and animals: Yes pets and animals: dog(s) history of recent travel: Yes ([place] & [place] & [place] - Apr 2024) out of state: No outof country: Yes sexually active: Yes Smoking Status: Never smoker alcohol intake: never substance use type: does not use well-balanced diet: daily or most days caffeine: No eating out: 1-3 times/week during the past year weight has: remained stable what type of physical activity do you participate in: walking frequency: 3-4 times per week duration: 15-30 minutes/day stephanie/gnosticist: Yazidism seatbelt use: always do you feel safe at home: Yes additional social history: : Joao Orosco History 1 Elective abortions Hx Para 0 Spontaneous abortions 0 Hx # Term Pregnancies Ectopic pregnancies Hx # Pregnancies Multiple births # of living children HPI 13wk OB Details: JOSE KELLY is a 23 year old who presents for routine OB visit. OB Visit ED Calculator Estimated Delivery Date Method Current WG Current Estimate 02/15/25 LMP (Certain) 13w 6d Other Estimates 02/19/25 Ultrasound #1 13w 2d Expected Delivery Route/Plan Labor Preferences- CB/BF classes: [] labor support person: [] labor intervention preferences: [] pain management options preferred: [] cut cord/dad catch: [] : [] PP control planned: [] discussed possible routes of delivery and associated risks: [] special requests: [] Specific Issue/Plans Covid status: [] Flu vaccine: [] Tdap vaccine: [] Rhogam: [] LARC form signed: [] Problem list reviewed and updated with the most current plan of care details and appropriate ordersplaced. Relevant counseling for the gestational age provided. Continue routine care and follow up unless otherwise noted in visit notes/problem list details Initial Weight: Not Recorded Date -?-?-?-?-?-?-?-?-?-?-?-?- EGA Weight BP Urine Prot -?-?-?-?-?-?-?-?-?-?-?-?- Glucose FHR FuHt Pres Dilation -?-?-?-?-?-?-?-?-?-?-?-?- Effaced St Visit Note 07/14/24 -?-?-?-?-?-?-?-?-?-?-?-?- 9w 1d 226 lb 4 oz 146/95 -?-?-?-?-?-?-?-?-?-?-?-?- 171 -?-?-?-?-?-?-?-?-?-?-?-?- KW- CRL cons wit h dates. declines NIPT 08/16/24 -?-?-?-?-?-?-?-?-?-?-?-?- 13w 6d 229 lb 8 oz 126/94 Nega tive -?-?-?-?-?-?-?-?-?-?-?-?- Negative 160 -?-?-?-?-?-?-?-?-?-?-?-?- JV- patient stat es that she is feeling better BP was elevated initially. ordering baseline PIH labs and she will start taking her bp at home. ACOG First Trimester First Trimester: Desire for , Alcohol, Tobacco Cessation, Illicit/Recreational Drug/Substance Use, Intimate Partner Violence, Barriers to care, Anticipated Course of Care, Use of Any medications, Sexual activity, Exercise, Dental Care, Sauna/Hot tub use, Seat Belt use, Childbirth [facility]Hospital facilities, Travel, Indications for Ultrasound and Screening for Aneuploidy; Discussed Unstable Housing, Discussed Communication Barriers, Discussed Environmental/Work Hazards, Discussed Toxoplasmosis Precations and Discussed Second Trimester Second Trimester: Signs and Symptoms of Labor, Selecting a care provider, Reproductive Life Planning & Contreception, Care Planning, Depression/Anxiety and Intimate Partner Violence; Discussed Tobacco Cessation Third Trimester Third Trimester: Pain Management Plans, Labor support person(s), Immediate Larc, Signs and Symptoms of Preeclampsia, Infant Feeding No , [place] Education and Family Medical Leave or Disability Forms Results POC Urinalysis 2 Dip (Clinic) Office Urine Glucose Negative Last Edit by Ashwini Sunshine on 08/16/24 11: 54 Office Urine Protein Negative Last Edit by Ashwini Sunshine on 08/16/24 11: 54 Coding Level of Care Code OB Routine Diagnoses Obesity affecting O99.210 Supervision of high-risk O09.90 9 weeks gestation of Z3A.09 Weeks of gestation: 9 weeks Assessment and Plan Assessment and Plan (1) Obesity affecting : Status: Acute Comment: BMI 34.7; HgBA1C ordered w/NOB (2) Supervision of high-risk : Status: Acute Comment: G1, ED 02/15/25, : Joao (3) : Status: Acute Qualifiers: Weeks of gestation: 9 weeks Qualified Code(s): Z3A.09 - 9 weeks gestation of Comment: Declines genetic/carrier testing Orders: Orders POC Urinalysis 2 Dip (Clinic) Today Comprehensive Metabolic Profil Today O16.9 - Unspecified maternal hypertension, unspecified trimester Protein+Creatinine Ratio,Urine Today O16.9 - Unspecified maternal hypertension, unspecified trimester 08/16/24 1200 e Velde DO> Date _ Kiley Haji DO Cosigner Signature: Date (if applicable) CC: ~ [facility]05-09-2025 Evaluation note* Diagnosis Onset Date Resolution Status Admit Date Obesity affecting acute July 14, 2024 8:44am acute July 14, 2024 8:44am Supervision of high-risk acute July 14, 2024 8: 44am Obesity affecting acute August 16, 2024 11:27am acute August 16 11:27am Supervision of high-risk acute August 16, 2024 11:27am Obesity affecting acute September 14, 2024 8:37am acute September 14 8:37am Supervision of high-risk acute September 14, 2024 8:37am Low lying placenta nos or without hemorrhage, second trimester acute September 26, 2024 8:23am Obesity affecting acute September 26, 2024 8:23am acute September 26 8:23am Supervision of high-risk acute September 26, 2024 8:23am Elevated blood pressure reading resolved September 26, 2024 8:23am Low lying placenta nos or without hemorrhage, second trimester acute September 27, 2024 11:27am Obesity affecting acute September 27, 2024 11:27am acute September 27 11:27am Supervision of high-risk acute September 27, 2024 11:27am Elevated blood pressure reading resolved September 27, 2024 11:27am Proteinuria affecting resolved September 27, 2024 11:27am Low lying placenta nos or without hemorrhage, second trimester acute October 02, 2024 8:17am Obesity affecting acute October 02, 2024 8:17am acute October 02 8:17am Supervision of high-risk acute October 02, 2024 8:17am White coat syndrome without hypertension acute October 02, 2024 8:17am Low lying placenta nos or without hemorrhage, second trimester acute October 11, 2024 8:31am Obesity affecting acute October 11, 2024 8:31am acute October 11 8:31am Supervision of high-risk acute October 11, 2024 8:31am White coat syndrome without hypertension acute October 11, 2024 8:31am Low lying placenta nos or without hemorrhage, second trimester acute November 09, 025 8:53am Obesity affecting acute November 09, 2024 8:53am acute November 09, 2024 8:53am Supervision of high-risk acute November 09, 025 8:53am White coat syndrome without hypertension acute November 09, 025 8:53am [facility] Work Phone: 1(685) 751-273304-22-2025 Evaluation note* Diagnosis Onset Date Resolution Status Admit Date Obesity affecting acute June 27, 2024 8:03am acute June 27 8:03am Supervision of high-risk acute June 27, 2024 8:03am Obesity affecting acute July 14, 2024 8:44am acute July 14, 2024 8:44am Supervision of high-risk acute July 14, 2024 8: 44am [facility] Work Phone: 1(320) 207-376504-22-2025 Evaluation note* Diagnosis Onset Date Resolution Status Admit Date Obesity affecting acute June 27, 2024 8:03am acute June 27 8:03am Supervision of high-risk acute June 27, 2024 8:03am Obesity affecting acute July 14, 2024 8:44am acute July 14, 2024 8:44am Supervision of high-risk acute July 14, 2024 8: 44am Obesity affecting acute August 16, 2024 11:27am acute August 16 11:27am Supervision of high-risk acute August 16, 2024 11:27am [facility] Work Phone: 1(573) 683-124104-22-2025 Evaluation note* Diagnosis Onset Date Resolution Status Admit Date Obesity affecting acute June 27, 2024 8:03am acute June 27 8:03am Supervision of high-risk acute June 27, 2024 8:03am Obesity affecting acute July 14, 2024 8:44am acute July 14, 2024 8:44am Supervision of high-risk acute July 14, 2024 8: 44am Obesity affecting acute August 16, 2024 11:27am acute August 16 11:27am Supervision of high-risk acute August 16, 2024 11:27am Obesity affecting acute September 14, 2024 8:37am acute September 14 8:37am Supervision of high-risk acute September 14, 2024 8:37am [facility] Work Phone: 1(565) 486-162404-22-2025 Evaluation note* Diagnosis Onset Date Resolution Status Admit Date Obesity affecting acute June 27, 2024 8:03am acute June 27 8:03am Supervision of high-risk acute June 27, 2024 8:03am Obesity affecting acute July 14, 2024 8:44am acute July 14, 2024 8:44am Supervision of high-risk acute July 14, 2024 8: 44am Obesity affecting acute August 16, 2024 11:27am acute August 16 11:27am Supervision of high-risk acute August 16, 2024 11:27am Obesity affecting acute September 14, 2024 8:37am acute September 14 8:37am Supervision of high-risk acute September 14, 2024 8:37am Low lying placenta nos or without hemorrhage, second trimester acute September 26, 2024 8:23am Obesity affecting acute September 26, 2024 8:23am acute September 26 8:23am Supervision of high-risk acute September 26, 2024 8:23am [facility] Work Phone: 1([phone]) 650-594704-22-2025 Evaluation note* Diagnosis Onset Date Resolution Status Admit Date Obesity affecting acute June 27, 2024 8:03am acute June 27 8:03am Supervision of high-risk acute June 27, 2024 8:03am Obesity affecting acute July 14, 2024 8:44am acute July 14, 2024 8:44am Supervision of high-risk acute July 14, 2024 8: 44am Obesity affecting acute August 16, 2024 11:27am acute August 16 11:27am Supervision of high-risk acute August 16, 2024 11:27am Obesity affecting acute September 14, 2024 8:37am acute September 14 8:37am Supervision of high-risk acute September 14, 2024 8:37am Elevated blood pressure reading acut e September 26, 2024 8:23am Low lying placenta nos or without hemorrhage, second trimester acute September 26, 2024 8:23am Obesity affecting acute September 26, 2024 8:23am acute September 26 8:23am Supervision of high-risk acute September 26, 2024 8:23am Elevated blood pressure reading acut e September 27, 2024 11:27am Low lying placenta nos or without hemorrhage, second trimester acute September 27, 2024 11:27am Obesity affecting acute September 27, 2024 11:27am acute September 27 11:27am Proteinuria affecting acut e September 27, 2024 11:27am Supervision of high-risk acute September 27, 2024 11:27am [facility] Work Phone: 1(490) 345-263904-22-2025 Evaluation note* Diagnosis Onset Date Resolution Status Admit Date Obesity affecting acute June 27, 2024 8:03am acute June 27 8:03am Supervision of high-risk acute June 27, 2024 8:03am Obesity affecting acute July 14, 2024 8:44am acute July 14, 2024 8:44am Supervision of high-risk acute July 14, 2024 8: 44am Obesity affecting acute August 16, 2024 11:27am acute August 16 11:27am Supervision of high-risk acute August 16, 2024 11:27am Obesity affecting acute September 14, 2024 8:37am acute September 14 8:37am Supervision of high-risk acute September 14, 2024 8:37am Low lying placenta nos or without hemorrhage, second trimester acute September 26, 2024 8:23am Obesity affecting acute September 26, 2024 8:23am acute September 26 8:23am Supervision of high-risk acute September 26, 2024 8:23am Elevated blood pressure reading reso lved September 26, 2024 8:23am Low lying placenta nos or without hemorrhage, second trimester acute September 27, 2024 11:27am Obesity affecting acute September 27, 2024 11:27am acute September 27 11:27am Supervision of high-risk acute September 27, 2024 11:27am Elevated blood pressure reading reso lved September 27, 2024 11:27am Proteinuria affecting reso lved September 27, 2024 11:27am Low lying placenta nos or without hemorrhage, second trimester acute October 02, 2024 8:17am Obesity affecting acute October 02, 2024 8:17am acute October 02 8:17am Supervision of high-risk acute October 02, 2024 8:17am White coat syndrome without hypertension acute October 02, 2024 8:17am [facility] Work Phone: 1([phone]) 674-354004-22-2025 Evaluation note* Diagnosis Onset Date Resolution Status Admit Date Obesity affecting acute June 27, 2024 8:03am acute June 27 8:03am Supervision of high-risk acute June 27, 2024 8:03am Obesity affecting acute July 14, 2024 8:44am acute July 14, 2024 8:44am Supervision of high-risk acute July 14, 2024 8: 44am Obesity affecting acute August 16, 2024 11:27am acute August 16 11:27am Supervision of high-risk acute August 16, 2024 11:27am Obesity affecting acute September 14, 2024 8:37am acute September 14 8:37am Supervision of high-risk acute September 14, 2024 8:37am Low lying placenta nos or without hemorrhage, second trimester acute September 26, 2024 8:23am Obesity affecting acute September 26, 2024 8:23am acute September 26 8:23am Supervision of high-risk acute September 26, 2024 8:23am Elevated blood pressure reading resolved September 26, 2024 8:23am Low lying placenta nos or without hemorrhage, second trimester acute September 27, 2024 11:27am Obesity affecting acute September 27, 2024 11:27am acute September 27 11:27am Supervision of high-risk acute September 27, 2024 11:27am Elevated blood pressure reading resolved September 27, 2024 11:27am Proteinuria affecting resolved September 27, 2024 11:27am Low lying placenta nos or without hemorrhage, second trimester acute October 02, 2024 8:17am Obesity affecting acute October 02, 2024 8:17am acute October 02 8:17am Supervision of high-risk acute October 02, 2024 8:17am White coat syndrome without hypertension acute October 02, 2024 8:17am Low lying placenta nos or without hemorrhage, second trimester acute October 11, 2024 8:31am Obesity affecting acute October 11, 2024 8:31am acute October 11 8:31am Supervision of high-risk acute October 11, 2024 8:31am White coat syndrome without hypertension acute October 11, 2024 8:31am [facility] Work Phone: Evaluation noteNo assessment information available [facility] Work Phone: Progress note Author Kiley George [facility] Note Date/Time August 16, 2024 12:0 0pm [facility] [address] [place] [address], [address] [place] [address] OFFICE VISIT Date of Service: 08/16/24 MR#: [id number] Acct: [id number] Name: JOSE KELLY Rep #: [id number] : 2000 Provider: Dr. Lucille Haji DO Age/Sex: 23/F [place] [facility] [place]: Signed Intake Vital Signs 07/14/24 08:50 08/16/24 11:29 08/16/24 11:32 Height 5 ft 8 in 5 ft 8 in 5 ft 8 in Weight: 229 lb 8 oz BMI 34.9 BP 126/94 H Intake Visit Reasons: 13wk OB Assistant Center Manager Required: No Is patient in pain?: No Allergies amoxicillin Allergy (Verified 08/16/24 11:29) Hives Penicillins Allergy (Verified 08/16/24 11:29) Rash Medications ?Medication ?Instructions ?Recorded ?Confirmed ?Type docosahexaenoic acid 200 mg mg PO 06/27/24 08/16/24 Hi story capsule ( DHA) Last Menstrual Period: 05/11/24 Zika: Zika virus screening: Negative : No PFSH PFSH Medical History Seasonal allergies Surgical History S/P wisdom tooth extraction S/P tonsillectomy and adenoidectomy Family History Brother Asthma Father Diabetes Type 2 Grandfather Diabetes Type 2 Social History adopted: No household members: spouse current occupational status: employed current occupation: [employer] current occupational exposures/hazards: No pets and animals: Yes pets and animals: dog(s) history of recent travel: Yes ([place] & [place] & [place] - Apr 2024) out of state: No out of country: Yes sexually active: Yes Smoking Status: Never smoker alcohol intake: never substance use type: does not use well-balanced diet: daily or most days caffeine: No eating out: 1-3 times/week during the past year weight has: remained stable what type of physical activity do you participate in: walking frequency: 3-4 times per week duration: 15-30 minutes/day stephanie/gnosticist: Yazidism seatbelt use: always do you feel safe at home: Yes additional social history: : Joao Orosco History 1 Elective abortions Hx Para 0 Spontaneous abortions 0 Hx # Term Pregnancies Ectopic pregnancies Hx # Pregnancies Multiple births # of living children HPI 13wk OB Details: JOSE KELLY is a 23 year old who presents for routine OB visit. OB Visit ED Calculator Estimated Delivery Date Method Current WG Current Estimate 02/15/25 LMP (Certain) 13w 6d Other Estimates 02/19/25 Ultrasound #1 13w 2d Expected Delivery Route/Plan Labor Preferences- CB/BF classes: [] labor support person: [] labor intervention preferences: [] pain management options preferred: [] cut cord/dad catch: [] : [] PP control planned: [] discussed possible routes of delivery and associated risks: [] special requests: [] Specific Issue/Plans Covid status: [] Flu vaccine: [] Tdap vaccine: [] Rhogam: [] LARC form signed: [] Problem list reviewed and updated with the most current plan of care details and appropriate orders placed. Relevant counseling for the gestational age provided. Continue routine care and follow up unless otherwise noted in visit notes/problem list details Initial Weight: Not Recorded Date -?-?-?-?-?-?-?-?-?-?-?-?- EGA Weight BP Urine Prot -?-?-?-?-?-?-?-?-?-?-?-?- Glucose FHR FuHt Pres Dilation -?-?-?-?-?-?-?-?-?-?-?-?- Effaced St Visit Note 07/14/24 -?-?-?-?-?-?-?-?-?-?-?-?- 9w 1d 226 lb 4 oz 146/95 -?-?-?-?-?-?-?-?-?-?-?-?- 171 -?-?-?-?-?-?-?-?-?-?-?-?- KW- CRL cons wit h dates. declines NIPT 08/16/24 -?-?-?-?-?-?-?-?-?-?-?-?- 13w 6d 229 lb 8 oz 126/94 Nega tive -?-?-?-?-?-?-?-?-?-?-?-?- Negative 160 -?-?-?-?-?-?-?-?-?-?-?-?- JV- patient stat es that she is feeling better BP was elevated initially. ordering baseline PIH labs and she will start taking her bp at home. ACOG First Trimester First Trimester: Desire for , Alcohol, Tobacco Cessation, Illicit/Recreational Drug/Substance Use, Intimate Partner Violence, Barriers to care, Anticipated Course of Care, Use of Any medications, Sexual activity, Exercise, Dental Care, Sauna/Hot tub use, Seat Belt use, Childbirth classes/Hospital facilities, Travel, Indications for Ultrasound and Screening for Aneuploidy; Discussed Unstable Housing, Discussed Communication Barriers, Discussed Environmental/Work Hazards, Discussed Toxoplasmosis Precations and Discussed Second Trimester Second Trimester: Signs and Symptoms of Labor, Selecting a care provider, Reproductive Life Planning & Contreception, Care Planning, Depression/Anxiety and Intimate Partner Violence; Discussed Tobacco Cessation Third Trimester Third Trimester: Pain Management Plans, Labor support person(s), Immediate Larc, Signs and Symptoms of Preeclampsia, Infant Feeding No , [place] Education and Family Medical Leave or Disability Forms Results POC Urinalysis 2 Dip (Clinic) Office Urine Glucose Negative Last Edit by Ashwini Sunshine on 08/16/24 11: 54 Office Urine Protein Negative Last Edit by Ashwini Sunshine on 08/16/24 11: 54 Coding Level of Care Code OB Routine Diagnoses Obesity affecting O99.210 Supervision of high-risk O09.90 9 weeks gestation of Z3A.09 Weeks of gestation: 9 weeks Assessment and Plan Assessment and Plan (1) Obesity affecting : Status: Acute Comment: BMI 34.7; HgBA1C ordered w/NOB (2) Supervision of high-risk : Status: Acute Comment: G1, ED 02/15/25, : Joao (3) : Status: Acute Qualifiers: Weeks of gestation: 9 weeks Qualified Code(s): Z3A.09 - 9 weeks gestation of Comment: Declines genetic/carrier testing Orders: Orders POC Urinalysis 2 Dip (Clinic) Today Comprehensive Metabolic Profil Today O16.9 - Unspecified maternal hypertension, unspecified trimester Protein+Creatinine Ratio,Urine Today O16.9 - Unspecified maternal hypertension, unspecified trimester 08/16/24 1200 <Electronically signed by Kiley Alvaardo DO> Date _ Kiley Haji DO Cosigner Signature: Date (if applicable) CC: ~ [facility] Work Phone: Progress note Author Kiley George [facility] Note Date/Time November 09, 2024 9:17am [facility] [address], [address] [place] [address] OFFICE VISIT Date of Service: 11/09/24 MR#: [id number] Acct: [id number] Name: JOSE POLLACK Rep #: [id number] : 2000 Provider: Dr. Lucille Haji DO Age/Sex: 24/F [place] [facility] [place] Status: Signed Intake Vital Signs 08/16/24 11:32 08/16/24 12:02 10/11/24 08:36 11/09/24 09:00 Height 5 ft 8 in 5 ft 8 in 5 ft 8 in 5 ft 8 in Weight: 237 lb 9 oz BMI 36.1 BP 131/84 H Intake Visit Reasons: 26wk ob/glucose Assistant Center Manager Required: No Is patient in pain?: No Allergies amoxicillin Allergy (Verified 11/09/24 09:00) Hives Penicillins Allergy (Verified 11/09/24 09:00) Rash Medications ?Medication ?Instructions ?Recorded ?Confirmed ?Type docosahexaenoic acid 200 mg mg PO 06/27/24 11/09/24 Hi story capsule ( DHA) Last Menstrual Period: 05/11/24 Zika: Zika virus screening: Negative : No PFSH [facility] Medical History Seasonal allergies Surgical History S/P wisdom tooth extraction S/P tonsillectomy and adenoidectomy Family History Brother Asthma Father Diabetes Type 2 Grandfather Diabetes Type 2 Social History adopted: No household members: spouse current occupational status: employed current occupation: [employer] current occupational exposures/hazards: No pets and animals: Yes pets and animals: dog(s) history of recent travel: Yes ([place] & [place] & [place] - Apr 2024) out of state: No out of country: Yes sexually active: Yes Smoking Status: Never smoker alcohol intake: never substance use type: does not use well-balanced diet: daily or most days caffeine: No eating out: 1-3 times/week during the past year weight has: remained stable what type of physical activity do you participate in: walking frequency: 3-4 times per week duration: 15-30 minutes/day stephanie/gnosticist: Yazidism seatbelt use: always do you feel safe at home: Yes additional social history: : Joao Orosco History 1 Elective abortions Hx Para 0 Spontaneous abortions 0 Hx # Term Pregnancies Ectopic pregnancies Hx # Pregnancies Multiple births # of living children HPI 26wk ob/glucose Details: JOSE POLLACK is a 24 year old who presents for routine OB visit. OB Visit ED Calculator Estimated Delivery Date Method Current WG Current Estimate 02/15/25 LMP (Certain) 26w 0d Other Estimates 02/19/25 Ultrasound #1 25w 3d Expected Delivery Route/Plan Labor Preferences- CB/BF classes: yes labor support person: Joao labor intervention preferences: [] pain management options preferred: [] cut cord/dad catch: [] : yes PP control planned: [] discussed possible routes of delivery and associated risks: [] special requests: [] Specific Issue/Plans Covid status: [] Flu vaccine: [] Tdap vaccine: [] Rhogam: [] LARC form signed: yes Problem list reviewed and updated with the most current plan of care details and appropriate orders placed. Relevant counseling for the gestational age provided. Continue routine care and follow up unless otherwise noted in visit notes/problem list details Initial Weight: Not Recorded Date -?-?-?-?-?-?-?-?-?-?-?-?- EGA Weight BP Urine Prot -?-?-?-?-?-?-?-?-?-?-?-?- Glucose FHR FuHt Pres Dilation -?-?-?-?-?-?-?-?-?-?-?-?- Effaced St Visit Note 07/14/24 -?-?-?-?-?-?-?-?-?-?-?-?- 9w 1d 226 lb 4 oz 146/95 -?-?-?-?-?-?-?-?--?-?-?-?- 171 -?-?-?-?-?-?-?-?-?-?-?-?- KW- CRL cons wit h dates. declines NIPT 08/16/24 -?-?-?-?-?-?-?-?-?-?-?-?- 13w 6d 229 lb 8 oz 126/94 Nega tive -?-?-?-?-?-?-?-?-?-?-?-?- Negative 160 -?-?-?-?-?-?-?-?-?-?-?-?- JV- patient stat es that she is feeling better BP was elevated initially. ordering baseline [facility] labs and she will start taking her bp at home. 09/14/24 -?-?-?-?-?-?-?-?-?-?-?-?- 18w 0d 232 lb 6 oz 142/86 Nega tive -?-?-?-?-?-?-?-?-?-?-?-?- Negative 154 -?-?-?-?-?-?-?-?-?-?-?-?- JV- bp's at home are 120's/70's. not sure if feeling movement yet. has anatomy scan 09/21. She will bring in her cuff from home next visit to compare. repeat bp was the same 09/26/24 -?-?-?-?-?-?-?-?-?-?-?-?- 19w 5d 235 lb 2 oz 128/86 Nega tive -?-?-?-?-?-?-?-?-?-?-?-?- Negative -?-?-?-?-?-?-?-?-?-?-?-?- Nurse visit only :Variable BPs on home machine and high. No headache, vision changes. Small cuff, will get new machine. Pre E labs. 09/27/24 -?-?-?-?-?-?-?-?-?-?-?-?- 19w 6d 233 lb 2 oz 136/84 Nega tive -?-?-?-?-?-?-?-?-?-?-?-?- Negative -?-?-?-?-?-?-?-?-?-?-?-?- nurse visit only today for bp check due to headache 10/02/24 -?-?-?-?-?-?-?-?-?-?-?-?- 20w 4d 234 lb 140/86 -?-?-?-?-?-?-?-?-?-?-?-?- 145 -?-?-?-?-?-?-?-?-?-?-?-?- SM- nl bps at me nl labs and 24 hour urine. no vb lof good fm no regular ctx 10/11/24 -?-?-?-?-?-?-?-?-?-?-?-?- 21w 6d 235 lb 8 oz 128/84 Nega tive -?-?-?-?-?-?-?-?-?-?-?-?- Negative 155 -?-?-?-?-?-?-?-?-?-?-?-?- MH-No VB. Good F M. Nausea resolved. No concerns 11/09/24 -?-?-?-?-?-?-?-?-?-?-?-?- 26w 0d 237 lb 9 oz 131/84 Nega tive -?-?-?-?-?-?-?-?-?-?-?-?- Negative 145 -?-?-?-?-?-?-?-?-?-?-?-?- JV- did glucose test today. no complaints. JV- did glucose test today. no complaints. has appt for placenta location on 11/23 ACOG First Trimester First Trimester: Desire for , Alcohol, Tobacco Cessation, Illicit/Recreational Drug/Substance Use, Intimate Partner Violence, Barriers to care, Anticipated Course of Care, Use of Any medications, Sexual activity, Exercise, Dental Care, Sauna/Hot tub use, Seat Belt use, Childbirth classes/Hospital facilities, Travel, Indications for Ultrasound and Screening for Aneuploidy; Discussed Unstable Housing, Discussed Communication Barriers, Discussed Environmental/Work Hazards, Discussed Toxoplasmosis Precations and Discussed Second Trimester Second Trimester: Signs and Symptoms of Labor, Selecting a care provider, Reproductive Life Planning & Contreception, Care Planning, Depression/Anxiety and Intimate Partner Violence; Discussed Tobacco Cessation Third Trimester Third Trimester: Pain Management Plans, Labor support person(s), Immediate Larc, Signs and Symptoms of Preeclampsia, Feeding No , [place] Education and Family Medical Leave or Disability Forms Results POC Urinalysis 2 Dip (Clinic) Office Urine Glucose Negative Last Edit by Ashwini Sunshine on 11/09/24 09: 08 Office Urine Protein Negative Last Edit by Ashwini Sunshine on 11/09/24 09: 08 Coding Level of Care Code OB Routine Diagnoses White coat syndrome without hypertension R03.0 Low lying placenta nos or without hemorrhage, second trimester O44.42 Obesity affecting in second trimester, unspecified obesity type O99.212 Obesity type affecting : unspecified obesity Trimester: second trimester Supervision of high risk in second trimester O09.92 Trimester: second trimester 26 weeks gestation of Z3A.26 Weeks of gestation: 26 weeks Assessment and Plan Assessment and Plan (1) White coat syndrome without hypertension: Status: Acute Comment: all normal bps at home. (2) Low lying placenta nos or without hemorrhage, second trimester: Status: Acute Comment: 28 week repeat US (3) Obesity affecting : Status: Acute Qualifiers: Obesity type affecting : unspecified obesity Trimester: second trimester Qualified Code(s): O99.212 - Obesity complicating , second trimester Comment: BMI 34.7; HgBA1C ordered w/NOB (4) Supervision of high-risk : Status: Acute Qualifiers: Trimester: second trimester Qualified Code(s): O09.92 - Supervision of high risk , unspecified, second trimester Comment: PRR ED 02/15/25, boy : Joao (5) : Status: Acute Qualifiers: Weeks of gestation: 26 weeks Qualified Code(s): Z3A.26 - 26 weeks gestation of Comment: Declines genetic/carrier testing Orders: Orders POC Urinalysis 2 Dip (Clinic) Today 11/09/24916 <Electronically signed by Kiley Alvarado DO> Date _ Kiley Haji DO Cosigner Signature: Date (if applicable) CC: ~ [facility] Work Phone: Progress note Author Naomi Hendrix [facility] Note Date/Time December 04, 2024 9:05am [facility] [address], [address] [place] [address] OFFICE VISIT Date of Service: 12/04/24 MR#: [id number] Acct: [id number] Name: JOSE POLLACK Rep #: [id number] : 2000 Provider: DARIANA Hendrix Age/Sex: 24/F [place] [facility] [place] Status: Signed Intake Vital Signs 09/26/24 08:30 12/04/24 08:07 12/04/24 08:52 12/04/24 08:52 Height 5 ft 8 in 5 ft 8 in 5 ft 8 in 5 ft 8 in Weight: 239 lb 5 oz BMI 36.3 BP 128/83 H Intake Visit Reasons: 30 WK OB Assistant Center Manager Required: No Is patient in pain?: No Allergies amoxicillin Allergy (Verified 12/04/24 08:51) Hives Penicillins Allergy (Verified 12/04/24 08:51) Rash Medications ?Medication ?Instructions ?Recorded ?Confirmed ?Type docosahexaenoic acid 200 mg mg PO 06/27/24 12/04/24 Hi story capsule ( DHA) flash glucose scanning reader #1 ea 11/10/24 12/04/24 Rx (FreeStyle Rhonda 2 [place]) flash glucose sensor (FreeStyle #1 ea 11/28/24 5 Rx Rhonda 2 Sensor kit) Last Menstrual Period: 05/11/24 Zika: Zika virus screening: Negative : No PFSH PFSH Medical History Seasonal allergies Surgical History S/P wisdom tooth extraction S/P tonsillectomy and adenoidectomy Family History Brother Asthma Father Diabetes Type 2 Grandfather Diabetes Type 2 Social History adopted: No household members: spouse current occupational status: employed current occupation: [employer] current occupational exposures/hazards: No pets and animals: Yes pets and animals: dog(s) history of recent travel: Yes ([place] & [place] & [place] - Apr 2024) out of state: No out of country: Yes sexually active: Yes Smoking Status: Never smoker alcohol intake: never substance use type: does not use well-balanced diet: daily or most days caffeine: No eating out: 1-3 times/week during the past year weight has: remained stable what type of physical activity do you participate in: walking frequency: 3-4 times per week duration: 15-30 minutes/day stephanie/gnosticist: Yazidism seatbelt use: always do you feel safe at home: Yes additional social history: : Joao Orosco History 1 Elective abortions Hx Para 0 Spontaneous abortions 0 Hx # Term Pregnancies Ectopic pregnancies Hx # Pregnancies Multiple births # of living children HPI 30 WK OB Details: JOSE POLLACK is a 24 year old who presents for routine OB visit. OB Visit ED Calculator Estimated Delivery Date Method Current WG Current Estimate 02/15/25 LMP (Certain) 29w 4d Other Estimates 02/19/25 Ultrasound #1 29w 0d Expected Delivery Route/Plan Labor Preferences- CB/BF classes: yes labor support person: Joao labor intervention preferences: [] pain management options preferred: [] cut cord/dad catch: [] : yes PP control planned: [] discussed possible routes of delivery and associated risks: [] special requests: [] Specific Issue/Plans Covid status: [] Flu vaccine: [] Tdap vaccine: [] Rhogam: [] LARC form signed: yes Problem list reviewed and updated with the most current plan of care details and appropriate orders placed. Relevant counseling for the gestational age provided. Continue routine care and follow up unless otherwise noted in visit notes/problem list details Initial Weight: Not Recorded Date -?-?-?-?-?-?-?-?-?-?-?-?- EGA Weight BP Urine Prot -?-?-?-?-?-?-?-?-?-?-?-?- Glucose FHR FuHt Pres Dilation -?-?-?-?-?-?-?-?-?-?-?-?- Effaced St Visit Note 07/14/24 -?-?-?-?-?-?-?-?-?-?-?-?- 9w 1d 226 lb 4 oz 146/95 -?-?-?-?-?-?-?-?-?-?-?-?- 171 -?-?-?-?-?-?-?-?-?-?-?-?- KW- CRL cons wit h dates. declines NIPT 08/16/24 -?-?-?-?-?-?-?-?-?-?-?-?- 13w 6d 229 lb 8 oz 126/94 Nega tive -?-?-?--?-?-?-?-?-?-?-?-?- Negative 160 -?-?-?-?-?-?-?-?-?-?-?-?- JV- patient stat es that she is feeling better BP was elevated initially. ordering baseline PIH labs and she will start taking her bp at home. 09/14/24 -?-?-?-?-?-?-?-?-?-?-?-?- 18w 0d 232 lb 6 oz 142/86 Nega tive -?-?-?-?-?-?-?-?-?-?-?-?- Negative 154 -?-?-?-?-?-?-?-?-?-?-?-?- JV- bp's at home are 120's/70's. not sure if feeling movement yet. has anatomy scan 09/21. She will bring in her cuff from home next visit to compare. repeat bp was the same 09/26/24 -?-?-?-?-?-?-?-?-?-?-?-?- 19w 5d 235 lb 2 oz 128/86 Nega tive -?-?-?-?-?-?-?-?-?-?-?-?- Negative -?-?-?-?--?-?-?-?-?-?-?-?- Nurse visit only :Variable BPs on home machine and high. No headache, vision changes. Small cuff, will get new machine. Pre E labs. 09/27/24 -?-?-?-?-?-?-?-?--?-?-?-?- 19w 6d 233 lb 2 oz 136/84 Nega tive -?-?-?-?-?-?-?-?-?-?-?-?- Negative -?-?-?-?-?-?-?-?-?-?-?-?- nurse visit only today for bp check due to headache 10/02/24 -?-?-?-?-?-?-?-?-?-?-?-?- 20w 4d 234 lb 140/86 -?-?-?-?-?-?-?-?-?-?-?-?- 145 -?-?-?-?-?-?-?-?-?-?-?-?- SM- nl bps at me nl labs and 24 hour urine. no vb lof good fm no regular ctx 10/11/24 -?-?-?-?-?-?-?-?-?-?-?-?- 21w 6d 235 lb 8 oz 128/84 Nega tive -?--?-?-?-?-?-?-?-?-?-?-?- Negative 155 -?-?-?-?-?-?-?-?-?-?-?-?- MH-No VB. Good F M. Nausea resolved. No concerns 11/09/24 -?-?-?-?-?-?-?-?-?-?-?-?- 26w 0d 237 lb 9 oz 131/84 Nega tive -?-?-?-?-?-?-?-?-?-?-?-?- Negative 145 -?-?-?-?-?-?-?-?-?-?-?-?- JV- did glucose test today. no complaints. JV- did glucose test today. no complaints. has appt for placenta location on 11/2311/24/24 -?-?-?-?-?-?-?-?-?-?-?-?- 28w 1d 237 lb 3 oz 134/89 Nega tive -?-?-?--?-?-?-?-?-?-?-?-?- Negative 150 28 -?-?-?-?-?-?-?-?-?-?-?-?- KW- reviewed blo od sugars and within normal limits. no vb/lof/ctx. good fm LARC and tdap today. CBE classes set up. 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 had follow up US with mfm and placenta moved. 12/04/24 -?-?-?-?-?-?-?-?-?-?-?-?- 29w 4d 239 lb 5 oz 128/83 Nega tive -?-?-?-?-?-?-?-?-?-?-?-?- Negative 141 30 -?-?-?-?-?-?-?-?-?-?-?-?- MH-NO VB, LOF. G ood Fm. All QID glucose readings WNL. Will check FBS and one 2 hr pp. ACOG First Trimester First Trimester: Desire for , Alcohol, Tobacco Cessation, Illicit/Recreational Drug/Substance Use, Intimate Partner Violence, Barriers to care, Anticipated Course of Care, Use of Any medications, Sexual activity, Exercise, Dental Care, Sauna/Hot tub use, Seat Belt use, Childbirth classes/Hospital facilities, Travel, Indications for Ultrasound and Screening for Aneuploidy; Discussed Unstable Housing, Discussed Communication Barriers, Discussed Environmental/Work Hazards, Discussed Toxoplasmosis Precations and Discussed Second Trimester Second Trimester: Signs and Symptoms of Labor, Selecting a care provider, Reproductive Life Planning & Contreception, Care Planning, Depression/Anxiety and Intimate Partner Violence; Discussed Tobacco Cessation Third Trimester Third Trimester: Pain Management Plans, Labor support person(s), Immediate Larc, Signs and Symptoms of Preeclampsia, Infant Feeding No , Education and Family Medical Leave or Disability Forms ROS Const Reports system reviewed and no additional complaints, except as documented GI Denies abdominal pain, Denies nausea and Denies vomiting Exam Const General: cooperative Nutritional Appearance: well nourished GI Palpation: soft, nontender and other (gravid) Results POC Urinalysis 2 Dip (Clinic) Office Urine Glucose Negative Last Edit by Katy Garcia on 12/04/24 09 :00 Office Urine Protein Negative Last Edit by Katy Garcia on 12/04/24 09 :00 Coding Level of Care Code OB Routine Diagnoses Supervision of high risk in second trimester O09.92 Trimester: second trimester Diet controlled gestational diabetes mellitus (GDM) in second trimester O24.410 Gestational diabetes mellitus control: diet-controlled Trimester: second trimester White coat syndrome without hypertension R03.0 Obesity affecting in second trimester, unspecified obesity type O99.212 Obesity type affecting : unspecified obesity Trimester: second trimester 29 weeks gestation of Z3A.29 Weeks of gestation: 29 weeks Assessment and Plan Assessment and Plan (1) Supervision of high-risk : Status: Acute Qualifiers: Trimester: second trimester Qualified Code(s): O09.92 - Supervision of high risk , unspecified, second trimester Comment: PRR ED 02/15/25, boy : Joao (2) Gestational diabetes: Status: Acute Qualifiers: Gestational diabetes mellitus control: diet-controlled Trimester: second trimester Qualified Code(s): O24.410 - Gestational diabetes mellitus in , diet controlled Comment: nutrition consult, glucose testing fasting and 2 HR PP;all readings perfect, go to FBS and 1 2hr pp (3) White coat syndrome without hypertension: Status: Acute Comment: all normal bps at home. (4) Obesity affecting : Status: Acute Qualifiers: Obesity type affecting : unspecified obesity Trimester: second trimester Qualified Code(s): O99.212 - Obesity complicating , second trimester Comment: BMI 34.7; HgBA1C ordered w/NOB (5) : Status: Acute Qualifiers: Weeks of gestation: 29 weeks Qualified Code(s): Z3A.29 - 29 weeks gestation of Comment: Declines genetic/carrier testing Orders: Orders POC Urinalysis 2 Dip (Clinic) Today Plan problem list reviewed and updated for most current plan of care and appropriate orders placed. Relevant counseling for the gestational age appropriate provided and ACOG education checklist updated. Continue routine care and follow up. 12/04/24 0910 <Electronically signed by Naomi WESTBROOK> Date _ Naomi WESTBROOK Cosigner Signature: Date (if applicable) CC: ~ [facility] Work Phone: Progress note Author Naomi Hendrix [facility] Note Date/Time December 19, 2024 1 0:49am [facility] [address] [place] [address], [address] [place] [address] OFFICE VISIT Date of Service: 12/19/24 MR#: [id number] Acct: [id number] Name: JOSE POLLACK Rep #: [id number] : 2000 Provider: DARIANA Hendrix Age/Sex: 24/F [place] [facility] [place] Status: Signed Intake Vital Signs 11/09/24 09:00 12/04/24 08:52 12/19/24 10:35 Height 5 ft 8 in 5 ft 8 in 5 ft 8 in Weight: 240 lb 9 oz BMI 36.6 BP 127/82 H Intake Visit Reasons: 32wk ob Assistant Center Manager Required: No Is patient in pain?: No Allergies amoxicillin Allergy (Verified 12/19/24 10:37) Hives Penicillins Allergy (Verified 12/19/24 10:37) Rash Medications ?Medication ?Instructions ?Recorded ?Confirmed ?Type docosahexaenoic acid 200 mg mg PO 06/27/24 12/19/24 Hi story capsule ( DHA) flash glucose scanning reader #1 ea 11/10/24 12/19/24 Rx (FreeStyle Rhonda 2 [place]) flash glucose sensor (FreeStyle #1 ea 11/28/24 5 Rx Rhonda 2 Sensor kit) Last Menstrual Period: 05/11/24 Zika: Zika virus screening: Negative : No PFSH PFSH Medical History Seasonal allergies Surgical History S/P wisdom tooth extraction S/P tonsillectomy and adenoidectomy Family History Brother Asthma Father Diabetes Type 2 Grandfather Diabetes Type 2 Social History adopted: No household members: spouse current occupational status: employed current occupation: [employer] current occupational exposures/hazards: No pets and animals: Yes pets and animals: dog(s) history of recent travel: Yes ([place] & [place] & [place] - Apr 2024) out of state: No out of country: Yes sexually active: Yes Smoking Status: Never smoker alcohol intake: never substance use type: does not use well-balanced diet: daily or most days caffeine: No eating out: 1-3 times/week during the past year weight has: remained stable what type of physical activity do you participate in: walking frequency: 3-4 times per week duration: 15-30 minutes/day stephanie/gnosticist: Yazidism seatbelt use: always do you feel safe at home: Yes additional social history: : Joao Orosco History 1 Elective abortions Hx Para 0 Spontaneous abortions 0 Hx # Term Pregnancies Ectopic pregnancies Hx # Pregnancies Multiple births # of living children HPI 32wk ob Details: JOSE POLLACK is a 24 year old who presents for routine OB visit. OB Visit ED Calculator Estimated Delivery Date Method Current WG Current Estimate 02/15/25 LMP (Certain) 31w 5d Other Estimates 02/19/25 Ultrasound #1 31w 1d Expected Delivery Route/Plan Labor Preferences- CB/BF classes: yes labor support person: Joao labor intervention preferences: [] pain management options preferred: [] cut cord/dad catch: yes : yes PP control planned: [] discussed possible routes of delivery and associated risks: [] special requests: [] Specific Issue/Plans Covid status: [] Flu vaccine: declines Tdap vaccine: given Rhogam: na LARC form signed: yes Problem list reviewed and updated with the most current plan of care details and appropriate orders placed. Relevant counseling for the gestational age provided. Continue routine care and follow up unless otherwise noted in visit notes/problem list details Initial Weight: Not Recorded Date -?-?-?-?-?-?-?-?-?-?-?-?- EGA Weight BP Urine Prot -?-?-?-?-?-?-?-?-?-?-?-?- Glucose FHR FuHt Pres Dilation -?-?-?-?-?-?-?-?-?-?-?-?- Effaced St Visit Note 07/14/24 -?-?-?-?-?-?-?-?-?-?-?-?- 9w 1d 226 lb 4 oz 146/95 -?-?-?-?-?-?-?-?-?-?-?-?- 171 -?-?-?-?-?-?-?-?-?-?-?-?- KW- CRL cons wit h dates. declines NIPT 08/16/24 -?-?-?-?-?-?-?-?-?-?-?-?- 13w 6d 229 lb 8 oz 126/94 Nega tive -?-?-?-?-?-?-?-?-?-?-?-?- Negative 160 -?-?-?-?-?-?-?-?-?-?-?-?- JV- patient stat es that she is feeling better BP was elevated initially. ordering baseline PIH labs and she will start taking her bp at home. 09/14/24 -?-?-?-?-?-?-?-?-?-?-?-?- 18w 0d 232 lb 6 oz 142/86 Nega tive -?-?-?-?-?-?-?-?-?-?-?-?- Negative 154 -?-?-?-?-?-?-?-?-?-?-?-?- JV- bp's at home are 120's/70's. not sure if feeling movement yet. has anatomy scan 09/21. She will bring in her cuff from home next visit to compare. repeat bp was the same 09/26/24 -?-?-?-?-?-?-?-?-?-?-?-?- 19w 5d 235 lb 2 oz 128/86 Nega tive -?-?-?-?-?-?-?-?-?-?-?-?- Negative -?-?-?-?-?-?-?-?-?-?-?-?- Nurse visit only :Variable BPs on home machine and high. No headache, vision changes. Small cuff, will get new machine. Pre E labs. 09/27/24 -?-?-?-?-?-?-?-?-?-?-?-?- 19w 6d 233 lb 2 oz 136/84 Nega tive -?-?-?-?-?-?-?-?-?-?-?-?- Negative -?-?-?-?-?-?-?-?-?-?-?-?- nurse visit only today for bp check due to headache 10/02/24 -?-?-?-?-?-?-?-?-?-?-?-?- 20w 4d 234 lb 140/86 -?-?-?-?-?-?-?-?-?-?-?-?- 145 -?-?-?-?-?-?-?-?-?-?-?-?- SM- nl bps at ho me nl labs and 24 hour urine. no vb lof good fm no regular ctx 10/11/24 -?-?-?-?-?-?-?-?-?-?-?-?- 21w 6d 235 lb 8 oz 128/84 Nega tive -?-?-?-?-?-?-?-?-?-?-?-?- Negative 155 -?-?-?-?-?-?-?-?-?-?-?-?- MH-No VB. Good F M. Nausea resolved. No concerns 11/09/24 -?-?-?-?-?-?-?-?-?-?-?-?- 26w 0d 237 lb 9 oz 131/84 Nega tive -?-?-?-?-?-?-?-?-?-?-?-?- Negative 145 -?-?-?-?-?-?-?-?-?-?-?-?- JV- did glucose test today. no complaints. JV- did glucose test today. no complaints. has appt for placenta location on 11/2311/24/24 -?-?-?-?-?-?-?-?-?-?-?-?- 28w 1d 237 lb 3 oz 134/89 Nega tive -?-?-?-?-?-?-?-?-?-?-?-?- Negative 150 28 -?-?-?-?-?-?-?-?-?-?-?-?- KW- reviewed blo od sugars and within normal limits. no vb/lof/ctx. good fm LARC and tdap today. CBE classes set up. 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 had follow up US with mfm and placenta moved. 12/04/24 -?-?-?-?-?-?-?-?-?-?-?-?- 29w 4d 239 lb 5 oz 128/83 Nega tive -?-?-?-?-?-?-?-?-?-?-?-?- Negative 141 30 -?-?-?-?-?-?-?-?-?-?-?-?- MH-NO VB, LOF. G ood Fm. All QID glucose readings WNL. Will check FBS and one 2 hr pp. 12/19/24 -?-?-?-?-?-?-?-?-?-?-?-?- 31w 5d 240 lb 9 oz 127/82 Nega tive -?-?-?-?-?-?-?-?-?-?-?-?- Negative 147 32 -?-?-?-?-?-?-?-?-?-?-?-?- MH-No VB, LOF. G ood FM. Still QID testing and all reading WNL. ACOG First Trimester First Trimester: Desire for , Alcohol, Tobacco Cessation, Illicit/Recreational Drug/Substance Use, Intimate Partner Violence, Barriers to care, Anticipated Course of Care, Use of Any medications, Sexual activity, Exercise, Dental Care, Sauna/Hot tub use, Seat Belt use, Childbirth classes/Hospital facilities, Travel, Indications for Ultrasound and Screening for Aneuploidy; Discussed Unstable Housing, Discussed Communication Barriers, Discussed Environmental/Work Hazards, Discussed Toxoplasmosis Precations and Discussed Second Trimester Second Trimester: Signs and Symptoms of Labor, Selecting a care provider, Reproductive Life Planning & Contreception, Care Planning, Depression/Anxiety and Intimate Partner Violence; Discussed Tobacco Cessation Third Trimester Third Trimester: Pain Management Plans, Labor support person(s), Immediate Larc, Signs and Symptoms of Preeclampsia, Feeding No , [place] Education and Family Medical Leave or Disability Forms ROS Const Reports system reviewed and no additional complaints, except as documented GI Denies abdominal pain, Denies nausea and Denies vomiting Exam Const General: cooperative Nutritional Appearance: well nourished GI Palpation: soft, nontender and other (gravid) Results POC Urinalysis 2 Dip (Clinic) Office Urine Glucose Negative Last Edit by Katy Garcia on 12/19/24 10 :42 Office Urine Protein Negative Last Edit by Katy Garcia on 12/19/24 10 :42 Coding Level of Care Code OB Routine Diagnoses Diet controlled gestational diabetes mellitus (GDM) in second trimester O24.410 Gestational diabetes mellitus control: diet-controlled Trimester: second trimester 31 weeks gestation of Z3A.31 Weeks of gestation: 31 weeks Supervision of high risk in second trimester O09.92 Trimester: second trimester Obesity affecting in second trimester, unspecified obesity type O99.212 Obesity type affecting : unspecified obesity Trimester: second trimester White coat syndrome without hypertension R03.0 Assessment and Plan Assessment and Plan (1) Gestational diabetes: Status: Acute Qualifiers: Gestational diabetes mellitus control: diet-controlled Trimester: second trimester Qualified Code(s): O24.410 - Gestational diabetes mellitus in , diet controlled Comment: nutrition consult, glucose testing fasting and 2 HR PP;all readings perfect, go to FBS and 1 2hr pp but still doing QID and WNL (2) : Status: Acute Qualifiers: Weeks of gestation: 31 weeks Qualified Code(s): Z3A.31 - 31 weeks gestation of Comment: Declines genetic/carrier testing (3) Supervision of high-risk : Status: Acute Qualifiers: Trimester: second trimester Qualified Code(s): O09.92 - Supervision of high risk , unspecified, second trimester Comment: PRR ED 02/15/25, boy : Joao (4) Obesity affecting : Status: Acute Qualifiers: Obesity type affecting : unspecified obesity Trimester: second trimester Qualified Code(s): O99.212 - Obesity complicating , second trimester Comment: BMI 34.7; HgBA1C ordered w/NOB (5) White coat syndrome without hypertension: Status: Acute Comment: all normal bps at home. Orders: Orders POC Urinalysis 2 Dip (Clinic) Today Plan problem list reviewed and updated for most current plan of care and appropriate orders placed. Relevant counseling for the gestational age appropriate provided and ACOG education checklist updated. Continue routine care and follow up. 12/19/24 1051 <Electronically signed by Naomi contreras ROUTER SETTER ROUTER SETTER-C> Date _ Naomi Hendrix NP ROUTER SETTER-C Cosigner Signature: Date (if applicable) CC: ~ [facility] Work Phone: Reason for referral (narrative)No reason for referral information availableWMercy Health [facility] Work Phone: Summary Purpose Family History No Family History Records Found Relationship Condition Age at Onset Recorded Date/T june brother Asthma Unknown father Diabetes mellitus Unknown grandfather Diabetes mellitus Unknown Advance Directives No Advanced Directives Records FoundNo Advanced Directives Records FoundNo Advanced Directives Records Found Chief Complaint and Reason for Visit Chief Complaint Admit Date Pre New OB, Vital, urine test June 8:03am NOB: LMP 3/6, ED 02/15July 14, 2024 8: 44am Reason for Visit Admit Date Obesity affecting June 27, 2024 8:03am June 27, 2024 8:0 3am Supervision of high-risk June 27, 2024 8:03am Obesity affecting July 14 8:44am July 14, 2024 8:44am Supervision of high-risk July 142024 8:44am Chief Complaint Admit Date Pre New OB, Vital, urine test June 8:03am NOB: LMP 3/6, ED 02/15July 14, 2024 8: 44am 13wk OB August 16, 2024 11:2 7am Reason for Visit Admit Date Obesity affecting June 27, 2024 8:03am June 27, 2024 8:0 3am Supervision of high-risk June 27, 2024 8:03am Obesity affecting July 14 8:44am July 14, 2024 8:44am Supervision of high-risk July 142024 8:44am Obesity affecting August 16, 2 025 11:27am August 16, 2024 11:2 7am Supervision of high-risk August 16, 2024 11:27am Chief Complaint Admit Date Pre New OB, Vital, urine test June 8:03am NOB: LMP 3/6, ED 02/15July 14, 2024 8: 44am 13wk OB August 16, 2024 11:2 7am 18wk ob September 14, 2024 8:37 am Reason for Visit Admit Date Obesity affecting June 27, 2024 8:03am June 27, 2024 8:0 3am Supervision of high-risk June 27, 2024 8:03am Obesity affecting July 14 8:44am July 14, 2024 8:44am Supervision of high-risk July 142024 8:44am Obesity affecting August 16 11:27am August 16, 2024 11:2 7am Supervision of high-risk August 16, 2024 11:27am Obesity affecting September 14 8:37am September 14, 2024 8:37 am Supervision of high-risk September 14, 2024 8:37am Chief Complaint Admit Date Pre New OB, Vital, urine test June 8:03am NOB: LMP 3/6, ED 02/15July 14, 2024 8: 44am 13wk OB August 16, 2024 11:2 7am 18wk ob September 14, 2024 8:37 am BP Check September 26, 2024 8:23 am Reason for Visit Admit Date Obesity affecting June 27, 2024 8:03am June 27, 2024 8:0 3am Supervision of high-risk June 27, 2024 8:03am Obesity affecting July 14 8:44am July 14, 2024 8:44am Supervision of high-risk July 142024 8:44am Obesity affecting August 16 11:27am August 16, 2024 11:2 7am Supervision of high-risk August 16, 2024 11:27am Obesity affecting September 14 8:37am September 14, 2024 8:37 am Supervision of high-risk September 14, 2024 8:37am Low lying placenta nos or wi thout hemorrhage, second trimester September 26, 2024 8:23am Obesity affecting Marlene 22nd, 2 025 8:23am September 26, 2024 8:23 am Supervision of high-risk September 26, 2024 8:23am Chief Complaint Admit Date Pre New OB, Vital, urine test June 8:03am NOB: LMP 3/6, ED 02/15July 14, 2024 8: 44am 13wk OB August 16, 2024 11:2 7am 18wk ob September 14, 2024 8:37 am BP Check September 26, 2024 8:23 am Bp check September 27, 2024 11:2 7am Reason for Visit Admit Date Obesity affecting June 27, 2024 8:03am June 27, 2024 8:0 3am Supervision of high-risk June 27, 2024 8:03am Obesity affecting July 14 8:44am July 14, 2024 8:44am Supervision of high-risk July 142024 8:44am Obesity affecting August 16 11:27am August 16, 2024 11:2 7am Supervision of high-risk August 16, 2024 11:27am Obesity affecting September 14 8:37am September 14, 2024 8:37 am Supervision of high-risk September 14, 2024 8:37am Elevated blood pressure reading September 8:23am Low lying placenta nos or wi thout hemorrhage, second trimester September 26, 2024 8:23am Obesity affecting September 26 8:23am September 26, 2024 8:23 am Supervision of high-risk September 26, 2024 8:23am Elevated blood pressure reading September 11:27am Low lying placenta nos or wi thout hemorrhage, second trimester September 27, 2024 11:27am Obesity affecting September 27 025 11:27am September 27, 2024 11:2 7am Proteinuria affecting September 11:27am Supervision of high-risk September 27, 2024 11:27am Chief Complaint Admit Date Pre New OB, Vital, urine test June 8:03am NOB: LMP 3/6, ED 02/15July 14, 2024 8: 44am 13wk OB August 16, 2024 11:2 7am 18wk ob September 14, 2024 8:37 am BP Check September 26, 2024 8:23 am Bp check September 27, 2024 11:2 7am 20wk OB, BP check, repeat labs September 8:17am Reason for Visit Admit Date Obesity affecting June 27, 2024 8:03am June 27, 2024 8:0 3am Supervision of high-risk June 27, 2024 8:03am Obesity affecting July 14 8:44am July 14, 2024 8:44am Supervision of high-risk July 142024 8:44am Obesity affecting August 16 11:27am August 16, 2024 11:2 7am Supervision of high-risk August 16, 2024 11:27am Obesity affecting September 14 8:37am September 14, 2024 8:37 am Supervision of high-risk September 14, 2024 8:37am Low lying placenta nos or wi thout hemorrhage, second trimester September 26, 2024 8:23am Obesity affecting September 26 8:23am September 26, 2024 8:23 am Supervision of high-risk September 26, 2024 8:23am Elevated blood pressure reading September 8:23am Low lying placenta nos or wi thout hemorrhage, second trimester September 27, 2024 11:27am Obesity affecting September 27 11:27am September 27, 2024 11:2 7am Supervision of high-risk September 27, 2024 11:27am Elevated blood pressure reading September 11:27am Proteinuria affecting September 11:27am Low lying placenta nos or wi thout hemorrhage, second trimester October 02, 2024 8:17am Obesity affecting October 02 8:17am October 02, 2024 8:17 am Supervision of high-risk October 02, 2024 8:17am White coat syndrome without hypertension October 02, 2024 8:17am Chief Complaint Admit Date Pre New OB, Vital, urine test June 8:03am NOB: LMP 3/6, ED /July 14, 2024 8: 44am 13wk OB August 16, 2024 11:2 7am 18wk ob September 14, 2024 8:37 am BP Check September 26, 2024 8:23 am Bp check September 27, 2024 11:2 7am 20wk OB, BP check, repeat labs September 8:17am 22wk ob October 11, 2024 8:3 1am Reason for Visit Admit Date Obesity affecting June 27, 2024 8:03am June 27, 2024 8:0 3am Supervision of high-risk June 27, 2024 8:03am Obesity affecting July 14 8:44am July 14, 2024 8:44am Supervision of high-risk July 142024 8:44am Obesity affecting August 16 11:27am August 16, 2024 11:2 7am Supervision of high-risk August 16, 2024 11:27am Obesity affecting September 14 8:37am September 14, 2024 8:37 am Supervision of high-risk September 14, 2024 8:37am Low lying placenta nos or wi thout hemorrhage, second trimester September 26, 2024 8:23am Obesity affecting September 26 8:23am September 26, 2024 8:23 am Supervision of high-risk September 26, 2024 8:23am Elevated blood pressure reading September 8:23am Low lying placenta nos or wi thout hemorrhage, second trimester September 27, 2024 11:27am Obesity affecting September 27 11:27am September 27, 2024 11:2 7am Supervision of high-risk September 27, 2024 11:27am Elevated blood pressure reading September 11:27am Proteinuria affecting September 11:27am Low lying placenta nos or wi thout hemorrhage, second trimester October 02, 2024 8:17am Obesity affecting October 02 025 8:17am October 02, 2024 8:17 am Supervision of high-risk October 02, 2024 8:17am White coat syndrome without hypertension October 02, 2024 8:17am Low lying placenta nos or wi thout hemorrhage, second trimester October 11, 2024 8:31am Obesity affecting October 11, 2024 8:31am October 11, 2024 8:3 1am Supervision of high-risk Augus t 2024 8:31am White coat syndrome without hypertension October 11, 2024 8:31am Chief Complaint Admit Date NOB: LMP 05/11, ED 02/15July 14, 2024 8: 44am 13wk OB August 16, 2024 11:2 7am 18wk ob September 14, 2024 8:37 am BP Check September 26, 2024 8:23 am Bp check September 27, 2024 11:2 7am 20wk OB, BP check, repeat labs September 8:17am 22wk ob October 11, 2024 8:3 1am 26wk ob/glucose November 09, 2024 8:53am Reason for Visit Admit Date Obesity affecting July 14 8:44am July 14, 2024 8:44am Supervision of high-risk July 142024 8:44am Obesity affecting August 16 11:27am August 16, 2024 11:2 7am Supervision of high-risk August 16, 2024 11:27am Obesity affecting September 14 8:37am September 14, 2024 8:37 am Supervision of high-risk September 14, 2024 8:37am Low lying placenta nos or wi thout hemorrhage, second trimester September 26, 2024 8:23am Obesity affecting September 26 025 8:23am September 26, 2024 8:23 am Supervision of high-risk September 26, 2024 8:23am Elevated blood pressure reading September 8:23am Low lying placenta nos or wi thout hemorrhage, second trimester September 27, 2024 11:27am Obesity affecting September 27 11:27am September 27, 2024 11:2 7am Supervision of high-risk September 27, 2024 11:27am Elevated blood pressure reading September 11:27am Proteinuria affecting September 11:27am Low lying placenta nos or wi thout hemorrhage, second trimester October 02, 2024 8:17am Obesity affecting October 02 8:17am October 02, 2024 8:17 am Supervision of high-risk October 02, 2024 8:17am White coat syndrome without hypertension October 02, 2024 8:17am Low lying placenta nos or wi thout hemorrhage, second trimester October 11, 2024 8:31am Obesity affecting October 11, 2024 8:31am October 11, 2024 8:3 1am Supervision of high-risk Augus 2024 8:31am White coat syndrome without hypertension October 11, 2024 8:31am Low lying placenta nos or wi thout hemorrhage, second trimester November 09, 2024 8:53am Obesity affecting November 8:53am November 09, 2024 8:53am Supervision of high-risk Septe mber 2024 8:53am White coat syndrome without hypertension November 09, 2024 8:53am Chief Complaint Admit Date 13wk OB August 16, 2024 11:2 7am 18wk ob September 14, 2024 8:37 am BP Check September 26, 2024 8:23 am Bp check September 27, 2024 11:2 7am 20wk OB, BP check, repeat labs September 8:17am 22wk ob October 11, 2024 8:3 1am 26wk ob/glucose November 09, 2024 8:53am 28wk ob November 24, 2024 2:34pm GDM December 04, 2024 8:00am 30 WK OB December 04, 2024 8:55am Reason for Visit Admit Date Obesity affecting August 16 11:27am August 16, 2024 11:2 7am Supervision of high-risk August 16, 2024 11:27am Obesity affecting September 14 8:37am September 14, 2024 8:37 am Supervision of high-risk September 14, 2024 8:37am Obesity affecting September 26 8:23am September 26, 2024 8:23 am Supervision of high-risk September 26, 2024 8:23am Elevated blood pressure reading September 8:23am Low lying placenta nos or wi thout hemorrhage, second trimester September 26, 2024 8:23am Obesity affecting September 27 11:27am September 27, 2024 11:2 7am Supervision of high-risk September 27, 2024 11:27am Elevated blood pressure reading September 11:27am Low lying placenta nos or wi thout hemorrhage, second trimester September 27, 2024 11:27am Proteinuria affecting September 11:27am Obesity affecting October 02 8:17am October 02, 2024 8:17 am Supervision of high-risk October 02, 2024 8:17am White coat syndrome without hypertension October 02, 2024 8:17am Low lying placenta nos or wi thout hemorrhage, second trimester October 02, 2024 8:17am Obesity affecting October 11, 2024 8:31am October 11, 2024 8:3 1am Supervision of high-risk Augus t 2024 8:31am White coat syndrome without hypertension October 11, 2024 8:31am Low lying placenta nos or wi thout hemorrhage, second trimester October 11, 2024 8:31am Obesity affecting November 8:53am November 09, 2024 8:53am Supervision of high-risk [facility] 2024 8:53am White coat syndrome without hypertension November 09, 2024 8:53am Low lying placenta nos or wi thout hemorrhage, second trimester November 09, 2024 8:53am Gestational diabetes November 24 2:34pm Obesity affecting November 242024 2:34pm November 24, 2024 2:34pm Supervision of high-risk Septe mber 2024 2:34pm White coat syndrome without hypertension November 24, 2024 2:34pm Low lying placenta nos or wi thout hemorrhage, second trimester November 24, 2024 2:34pm Gestational diabetes December 04 8:55am Obesity affecting December 042024 8:55am December 04, 2024 8:55am Supervision of high-risk Danielle mber 2024 8:55am White coat syndrome without hypertension December 04, 2024 8:55am Chief Complaint Admit Date 18wk ob September 14, 2024 8:37 am BP Check September 26, 2024 8:23 am Bp check September 27, 2024 11:2 7am 20wk OB, BP check, repeat labs September 8:17am 22wk ob October 11, 2024 8:3 1am 26wk ob/glucose November 09, 2024 8:53am 28wk ob November 24, 2024 2:34pm GDM December 04, 2024 8:00am 30 WK OB December 04, 2024 8:55am 32wk ob December 19, 2024 1 0:34am Reason for Visit Admit Date Obesity affecting September 14 8:37am September 14, 2024 8:37 am Supervision of high-risk September 14, 2024 8:37am Obesity affecting September 26 8:23am September 26, 2024 8:23 am Supervision of high-risk September 26, 2024 8:23am Elevated blood pressure reading September 8:23am Low lying placenta nos or wi thout hemorrhage, second trimester September 26, 2024 8:23am Obesity affecting September 27 11:27am September 27, 2024 11:2 7am Supervision of high-risk September 27, 2024 11:27am Elevated blood pressure reading September 11:27am Low lying placenta nos or wi thout hemorrhage, second trimester September 27, 2024 11:27am Proteinuria affecting September 11:27am Obesity affecting October 02 8:17am October 02, 2024 8:17 am Supervision of high-risk October 02, 2024 8:17am White coat syndrome without hypertension October 02, 2024 8:17am Low lying placenta nos or wi thout hemorrhage, second trimester October 02, 2024 8:17am Obesity affecting October 11, 2024 8:31am October 11, 2024 8:3 1am Supervision of high-risk Augus t 2024 8:31am White coat syndrome without hypertension October 11, 2024 8:31am Low lying placenta nos or wi thout hemorrhage, second trimester October 11, 2024 8:31am Obesity affecting November 8:53am November 09, 2024 8:53am Supervision of high-risk Septe mber 2024 8:53am White coat syndrome without hypertension November 09, 2024 8:53am Low lying placenta nos or wi thout hemorrhage, second trimester November 09, 2024 8:53am Gestational diabetes November 24 2:34pm Obesity affecting November 242024 2:34pm November 24, 2024 2:34pm Supervision of high-risk Septe mber 2024 2:34pm White coat syndrome without hypertension November 24, 2024 2:34pm Low lying placenta nos or wi thout hemorrhage, second trimester November 24, 2024 2:34pm Gestational diabetes December 04 8:55am Obesity affecting December 042024 8:55am December 04, 2024 8:55am Supervision of high-risk Septe mb 2024 8:55am White coat syndrome without hypertension December 04, 2024 8:55am Gestational diabetes December 19, 2024 10:34am Obesity affecting December 10:34am December 19, 2024 1 0:34am Supervision of high-risk Octob 2024 10:34am White coat syndrome without hypertension December 19, 2024 10:34am Additional Source Comments INFORMATION SOURCE (unrecogn ized section and content) DATE CREATED AUTHOR 05/01/2021 [facility] DATE CREATED AUTHOR AUTHOR'S ORGANIZ ATION 11/24/2024 [facility] DATE CREATED AUTHOR AUTHOR'S ORGANIZ ATION 01/17/2025 [facility] Goals (unrecognized section and content) Type Care Experience Labor Preferences-CB /BF classes: yeslabor support person: Blakeonkassandraor intervention preferences: []pain management options preferred: []cut cord/dad catch: []: yesPP control planned: []discussed possible routes of delivery and associated risks: []special requests: [] Type Detail Care Experience Labor Preferences-CB /BF classes: yeslabor support person: Anne intervention preferences: []pain management options preferred: []cut cord/dad catch: yesbreastfeeding: yesPP control planned: []discussed possible routes of delivery and associated risks: []special requests: [] Care Teams (unrecognized sec tion and content) Team Status: Active Member Role Status Dates Dr. Eran Vu DO Family Provider Active Dr. Eran Vu DO Primary Care Provider Active Team Status: Inactive Member Role Status Dates Dr. Eran Vu DO Primary Care Provider Active Start: June 27, 2024 End: June 27, 2024 Dr. Eran Vu DO Referring Provider Active S tart: June 27, 2024 End: June 27, 2024 Dr. Charline Alvarez MD Attending Provider Active Start: June 27, 2024 End: June 27, 2024 Team Status: Inactive Member Role Status Dates Dr. Eran Vu DO Primary Care Provider Active Start: July 14, 2024 End: July 14, 2024 Dr. Eran Vu DO Referring Provider Active S tart: July 14, 2024 End: July 14, 2024 Nancy Wolfe CNM Attending Provider Active S tart: July 14, 2024 End: July 14, 2024 Team Status: Inactive Member Role Status Dates Dr. Eran Vu DO Primary Care Provider Active Start: July 14, 2024 End: July 14, 2024 Nancy Wolfe CNM Attending Provider Active S tart: July 14, 2024 End: July 14, 2024 Nancy Wolfe CNM Referring Provider Active S tart: July 14, 2024 End: July 14, 2024 Team Status: Active Member Role Status Dates Dr. Eran Vu DO Primary Care Provider Active Team Status: Inactive Member Role Status Dates Dr. Eran Vu DO Primary Care Provider Active Start: August 16, 2024 End: August 16, 2024 Dr. Eran Vu DO Referring Provider Active S tart: August 16, 2024 End: August 16, 2024 Dr. Kiley Haji DO Attending Provider Activ e Start: August 16, 2024 End: August 16, 2024 Team Status: Active Member Role Status Dates Dr. Eran Vu DO Primary Care Provider Active Start: August 16, 2024 Dr. Kiley Haji DO Attending Provider Activ e Start: August 16, 2024 Dr. Kiley Haji DO Referring Provider Activ e Start: August 16, 2024 Team Status: Inactive Member Role Status Dates Dr. Eran Vu DO Primary Care Provider Active Start: August 16, 2024 End: August 16, 2024 Dr. Kiley Haji DO Attending Provider Activ e Start: August 16, 2024 End: August 16, 2024 Dr. Kiley Haji DO Referring Provider Activ e Start: August 16, 2024 End: August 16, 2024 Team Status: Active Member Role/Relationship Status Dates Dr. Eran Vu DO Primary Care Provider Active Team Status: Inactive Member Role/Relationship Status Dates Dr. Eran Vu DO Primary Care Provider Active Start: June 27, 2024 End: June 27, 2024 Dr. Eran Vu DO Referring Provider Active S tart: June 27, 2024 End: June 27, 2024 Dr. Charline Alvarez MD Attending Provider Active Start: June 27, 2024 End: June 27, 2024 Team Status: Inactive Member Role/Relationship Status Dates Dr. Eran Vu DO Primary Care Provider Active Start: July 14, 2024 End: July 14, 2024 Dr. Eran Vu DO Referring Provider Active S tart: July 14, 2024 End: July 14, 2024 Nancy Wolfe CNM Attending Provider Active S tart: July 14, 2024 End: July 14, 2024 Team Status: Inactive Member Role/Relationship Status Dates Dr. Eran Vu DO Primary Care Provider Active Start: July 14, 2024 End: July 14, 2024 Nancy Wolfe CNM Attending Provider Active S tart: July 14, 2024 End: July 14, 2024 Nancy Wolfe CNM Referring Provider Active S tart: July 14, 2024 End: July 14, 2024 Team Status: Inactive Member Role/Relationship Status Dates Dr. Eran Vu DO Primary Care Provider Active Start: August 16, 2024 End: August 16, 2024 Dr. Eran Vu DO Referring Provider Active S tart: August 16, 2024 End: August 16, 2024 Dr. Kiley Haji DO Attending Provider Activ e Start: August 16, 2024 End: August 16, 2024 Team Status: Inactive Member Role/Relationship Status Dates Dr. Eran Vu DO Primary Care Provider Active Start: August 16, 2024 End: August 16, 2024 Dr. Kiley Haji DO Attending Provider Activ e Start: August 16, 2024 End: August 16, 2024 Dr. Kiley Haji DO Referring Provider Activ e Start: August 16, 2024 End: August 16, 2024 Team Status: Inactive Member Role/Relationship Status Dates Dr. Eran Vu DO Primary Care Provider Active Start: September 14, 2024 End: September 14, 2024 Dr. Eran Vu DO Referring Provider Active S tart: September 14, 2024 End: September 14, 2024 Dr. Kiley Haji DO Attending Provider Activ e Start: September 14, 2024 End: September 14, 2024 Team Status: Inactive Member Role/Relationship Status Dates Dr. Eran Vu DO Primary Care Provider Active Start: September 26, 2024 End: September 26, 2024 Dr. Eran Vu DO Referring Provider Active S tart: September 26, 2024 End: September 26, 2024 Naomi Hendrix ROUTER SETTER, ROUTER SETTER-C Attending Provider Active Start: September 26, 2024 End: September 26, 2024 Team Status: Active Member Role/Relationship Status Dates Dr. Eran Vu DO Primary Care Provider Active Start: September 26, 2024 Naomi Hendrix ROUTER SETTER, ROUTER SETTER-C Attending Provider Active Start: September 26, 2024 Naomi Simeon ROUTER SETTER, ROUTER SETTER-C Referring Provider Active Start: September 26, 2024 Team Status: Inactive Member Role/Relationship Status Dates Dr. Eran Vu DO Primary Care Provider Active Start: September 27, 2024 End: September 27, 2024 Dr. Eran Vu DO Referring Provider Active S tart: September 27, 2024 End: September 27, 2024 Dr. Kiley Haji DO Attending Provider Activ e Start: September 27, 2024 End: September 27, 2024 Team Status: Active Member Role/Relationship Status Dates Dr. Eran Vu DO Primary Care Provider Active Start: September 28, 2024 Dr. Kiley Haji DO Attending Provider Activ e Start: September 28, 2024 Dr. Kiley Haji DO Referring Provider Activ e Start: September 28, 2024 Team Status: Inactive Member Role/Relationship Status Dates Dr. Eran Vu DO Primary Care Provider Active Start: October 02, 2024 End: October 02, 2024 Dr. Eran Vu DO Referring Provider Active S tart: October 02, 2024 End: October 02, 2024 Dr. Charline Alvarez MD Attending Provider Active Start: October 02, 2024 End: October 02, 2024 Team Status: Inactive Member Role/Relationship Status Dates Dr. Eran Vu DO Primary Care Provider Active Start: September 26, 2024 End: September 26, 2024 Naomi Hendrix ROUTER SETTER, ROUTER SETTER-C Attending Provider Active Start: September 26, 2024 End: September 26, 2024 Naomi Hendrix ROUTER SETTER, ROUTER SETTER-C Referring Provider Active Start: September 26, 2024 End: September 26, 2024 Team Status: Inactive Member Role/Relationship Status Dates Dr. Eran Vu DO Primary Care Provider Active Start: September 28, 2024 End: September 28, 2024 Dr. Kiley Haji DO Attending Provider Activ e Start: September 28, 2024 End: September 28, 2024 Dr. Kiley Haji DO Referring Provider Activ e Start: September 28, 2024 End: September 28, 2024 Team Status: Inactive Member Role/Relationship Status Dates Dr. Eran Vu DO Primary Care Provider Active Start: October 11, 2024 End: October 11, 2024 Dr. Eran Vu DO Referring Provider Active S tart: October 11, 2024 End: October 11, 2024 Naomi Hendrix ROUTER SETTER, ROUTER SETTER-C Attending Provider Active Start: October 11, 2024 End: October 11, 2024 Team Status: Inactive Member Role/Relationship Status Dates Dr. Eran Vu DO Primary Care Provider Active Start: July 14, 2024 End: July 14, 2024 Dr. Eran Vu DO Referring Provider Active S tart: July 14, 2024 End: July 14, 2024 Nancy Wolfe CNM Attending Provider Active S tart: July 14, 2024 End: July 14, 2024 Team Status: Inactive Member Role/Relationship Status Dates Dr. Eran Vu DO Primary Care Provider Active Start: July 14, 2024 End: July 14, 2024 Nancy Wolfe CNM Attending Provider Active S tart: July 14, 2024 End: July 14, 2024 Nancy Wolfe CNM Referring Provider Active S tart: July 14, 2024 End: July 14, 2024 Team Status: Inactive Member Role/Relationship Status Dates Dr. Eran Vu DO Primary Care Provider Active Start: August 16, 2024 End: August 16, 2024 Dr. Eran Vu DO Referring Provider Active S tart: August 16, 2024 End: August 16, 2024 Dr. Kiley Haji DO Attending Provider Activ e Start: August 16, 2024 End: August 16, 2024 Team Status: Inactive Member Role/Relationship Status Dates Dr. Eran Vu DO Primary Care Provider Active Start: August 16, 2024 End: August 16, 2024 Dr. Kiley Haji DO Attending Provider Activ e Start: August 16, 2024 End: August 16, 2024 Dr. Kiley Haji DO Referring Provider Activ e Start: August 16, 2024 End: August 16, 2024 Team Status: Inactive Member Role/Relationship Status Dates Dr. Eran Vu DO Primary Care Provider Active Start: September 14, 2024 End: September 14, 2024 Dr. Eran Vu DO Referring Provider Active S tart: September 14, 2024 End: September 14, 2024 Dr. Kiley Haji DO Attending Provider Activ e Start: September 14, 2024 End: September 14, 2024 Team Status: Inactive Member Role/Relationship Status Dates Dr. Eran Vu DO Primary Care Provider Active Start: September 26, 2024 End: September 26, 2024 Dr. Eran Vu DO Referring Provider Active S tart: September 26, 2024 End: September 26, 2024 Naomi Hendrix ROUTER SETTER, ROUTER SETTER-C Attending Provider Active Start: September 26, 2024 End: September 26, 2024 Team Status: Inactive Member Role/Relationship Status Dates Dr. Eran Vu DO Primary Care Provider Active Start: September 26, 2024 End: September 26, 2024 Naomi Hendrix ROUTER SETTER, ROUTER SETTER-C Attending Provider Active Start: September 26, 2024 End: September 26, 2024 Naomi Hendrix ROUTER SETTER, ROUTER SETTER-C Referring Provider Active Start: September 26, 2024 End: September 26, 2024 Team Status: Inactive Member Role/Relationship Status Dates Dr. Eran Vu DO Primary Care Provider Active Start: September 27, 2024 End: September 27, 2024 Dr. Eran Vu DO Referring Provider Active S tart: September 27, 2024 End: September 27, 2024 Dr. Kiley Haji DO Attending Provider Activ e Start: September 27, 2024 End: September 27, 2024 Team Status: Inactive Member Role/Relationship Status Dates Dr. Eran Vu DO Primary Care Provider Active Start: September 28, 2024 End: September 28, 2024 Dr. Kiley Haji DO Attending Provider Activ e Start: September 28, 2024 End: September 28, 2024 Dr. Kiley Haji DO Referring Provider Activ e Start: September 28, 2024 End: September 28, 2024 Team Status: Inactive Member Role/Relationship Status Dates Dr. Eran Vu DO Primary Care Provider Active Start: October 02, 2024 End: October 02, 2024 Dr. Eran Vu DO Referring Provider Active S tart: October 02, 2024 End: October 02, 2024 Dr. Charline Alvarez MD Attending Provider Active Start: October 02, 2024 End: October 02, 2024 Team Status: Inactive Member Role/Relationship Status Dates Dr. Eran Vu DO Primary Care Provider Active Start: October 11, 2024 End: October 11, 2024 Dr. Eran Vu DO Referring Provider Active S tart: October 11, 2024 End: October 11, 2024 Naomi Hendrix ROUTER SETTER, ROUTER SETTER-C Attending Provider Active Start: October 11, 2024 End: October 11, 2024 Team Status: Inactive Member Role/Relationship Status Dates Dr. Eran Vu DO Primary Care Provider Active Start: November 09, 2024 End: November 09, 2024 Dr. Eran Vu DO Referring Provider Active S tart: November 09, 2024 End: November 09, 2024 Dr. Kiley Haji DO Attending Provider Activ e Start: November 09, 2024 End: November 09, 2024 Team Status: Active Member Role/Relationship Status Dates Dr. Eran Vu DO Primary Care Provider Active Start: November 09, 2024 Dr. Charline Alvarez MD Attending Provider Active Start: November 09, 2024 Dr. Charline Alvarez MD Referring Provider Active Start: November 09, 2024 Team Status: Active Member Role/Relationship Status Dates Dr. Eran Vu DO Primary care physician Active Team Status: Inactive Member Role/Relationship Status Dates Dr. Eran Vu DO Primary care physician Active Start: August 16, 2024 End: August 16, 2024 Dr. Eran Vu DO Referring Provider Active S tart: August 16, 2024 End: August 16, 2024 Dr. Kiley Haji DO Attending physician Acti ve Start: August 16, 2024 End: August 16, 2024 Team Status: Inactive Member Role/Relationship Status Dates Dr. Eran Vu DO Primary care physician Active Start: August 16, 2024 End: August 16, 2024 Dr. Kiley Haji DO Attending physician Acti ve Start: August 16, 2024 End: August 16, 2024 Dr. Kiley Haji DO Referring Provider Activ e Start: August 16, 2024 End: August 16, 2024 Team Status: Inactive Member Role/Relationship Status Dates Dr. Eran Vu DO Primary care physician Active Start: September 14, 2024 End: September 14, 2024 Dr. Eran Vu DO Referring Provider Active S tart: September 14, 2024 End: September 14, 2024 Dr. Kiley Haji DO Attending physician Acti ve Start: September 14, 2024 End: September 14, 2024 Team Status: Inactive Member Role/Relationship Status Dates Dr. Eran Vu DO Primary care physician Active Start: September 26, 2024 End: September 26, 2024 Dr. Eran Vu DO Referring Provider Active S tart: September 26, 2024 End: September 26, 2024 Naomi Hendrix ROUTER SETTER, ROUTER SETTER-C Attending physician Active Start: September 26, 2024 End: September 26, 2024 Team Status: Inactive Member Role/Relationship Status Dates Dr. Eran Vu DO Primary care physician Active Start: September 26, 2024 End: September 26, 2024 Naomi Hendrix ROUTER SETTER, ROUTER SETTER-C Attending physician Active Start: September 26, 2024 End: September 26, 2024 Naomi Hendrix ROUTER SETTER, ROUTER SETTER-C Referring Provider Active Start: September 26, 2024 End: September 26, 2024 Team Status: Inactive Member Role/Relationship Status Dates Dr. Eran Vu DO Primary care physician Active Start: September 27, 2024 End: September 27, 2024 Dr. Eran Vu DO Referring Provider Active S tart: September 27, 2024 End: September 27, 2024 Dr. Kiley Haji DO Attending physician Acti ve Start: September 27, 2024 End: September 27, 2024 Team Status: Inactive Member Role/Relationship Status Dates Dr. Eran Vu DO Primary care physician Active Start: September 28, 2024 End: September 28, 2024 Dr. Kiley Haji , Attending physician Acti ve Start: September 28, 2024 End: September 28, 2024 Dr. Kiley Haji DO Referring Provider Activ e Start: September 28, 2024 End: September 28, 2024 Team Status: Inactive Member Role/Relationship Status Dates Dr. Eran Vu DO Primary care physician Active Start: October 02, 2024 End: October 02, 2024 Dr. Eran Vu DO Referring Provider Active S tart: October 02, 2024 End: October 02, 2024 Dr. Charline Alvarez MD Attending physician Active Start: October 02, 2024 End: October 02, 2024 Team Status: Inactive Member Role/Relationship Status Dates Dr. Eran Vu DO Primary care physician Active Start: October 11, 2024 End: October 11, 2024 Dr. Eran Vu DO Referring Provider Active S tart: October 11, 2024 End: October 11, 2024 Naomi Simeon ROUTER SETTER, ROUTER SETTER-C Attending physician Active Start: October 11, 2024 End: October 11, 2024 Team Status: Inactive Member Role/Relationship Status Dates Dr. Eran Vu DO Primary care physician Active Start: November 09, 2024 End: November 09, 2024 Dr. Eran Vu DO Referring Provider Active S tart: November 09, 2024 End: November 09, 2024 Dr. Kiley Haji DO Attending physician Active Start: November End: November 09, 2024 Team Status: Inactive Member Role/Relationship Status Dates Dr. Eran Vu DO Primary care physician Active Start: November 09, 2024 End: November 09, 2024 Dr. Charline Alvarez MD Attending physician Active Start: November 09, 2024 End: November 09, 2024 Dr. Charline Alvarez MD Referring Provider Active Start: November 09, 2024 End: November 09, 2024 Team Status: Inactive Member Role/Relationship Status Dates Dr. Eran Vu DO Primary care physician Active Start: November 24, 2024 End: November 24, 2024 Dr. Eran Vu DO Referring Provider Active S tart: November 24, 2024 End: November 24, 2024 Nancy Wolfe CNM Attending physician Active Start: November 24, 2024 End: November 24, 2024 Team Status: Active Member Role/Relationship Status Dates Dr. Eran Vu DO Primary care physician Active Start: December 04, 2024 Dr. Charline Alvarez MD Attending physician Active Start: December 04, 2024 Dr. Charline Alvarez MD Referring Provider Active Start: December 04, 2024 Team Status: Inactive Member Role/Relationship Status Dates Dr. Eran Vu DO Primary care physician Active Start: December 04, 2024 End: December 04, 2024 Dr. Eran Vu DO Referring Provider Active S tart: December 04, 2024 End: December 04, 2024 Naomi Hendrix NP, ROUTER SETTER-C Attending physician Active Start: December 04, 2024 End: December 04, 2024 Team Status: Inactive Member Role/Relationship Status Dates Dr. Eran Vu DO Primary care physician Active Start: December 04, 2024 End: December 05, 2024 Dr. Charline Alvarez MD Attending physician Active Start: December 04, 2024 End: December 05, 2024 Dr. Charline Alvarez MD Referring Provider Active Start: December 04, 2024 End: December 05, 2024 Team Status: Inactive Member Role/Relationship Status Dates Dr. Eran Vu DO Primary care physician Active Start: September 14, 2024 End: September 14, 2024 Dr. Eran Vu DO Referring Provider Active S tart: September 14, 2024 End: September 14, 2024 Dr. Kiley Haji , Attending physician Acti ve Start: September 14, 2024 End: September 14, 2024 Team Status: Inactive Member Role/Relationship Status Dates Dr. Eran Vu DO Primary care physician Active Start: September 26, 2024 End: September 26, 2024 Dr. Eran Vu DO Referring Provider Active S tart: September 26, 2024 End: September 26, 2024 Naomi Hendrix ROUTER SETTER, ROUTER SETTER-C Attending physician Active Start: September 26, 2024 End: September 26, 2024 Team Status: Inactive Member Role/Relationship Status Dates Dr. Eran Vu DO Primary care physician Active Start: September 26, 2024 End: September 26, 2024 Naomi Hendrix ROUTER SETTER, ROUTER SETTER-C Attending physician Active Start: September 26, 2024 End: September 26, 2024 Naomi Hendrix ROUTER SETTER, ROUTER SETTER-C Referring Provider Active Start: September 26, 2024 End: September 26, 2024 Team Status: Inactive Member Role/Relationship Status Dates Dr. Eran Vu DO Primary care physician Active Start: September 27, 2024 End: September 27, 2024 Dr. Eran uV DO Referring Provider Active S tart: September 27, 2024 End: September 27, 2024 Dr. Kiley Haji DO Attending physician Acti ve Start: September 27, 2024 End: September 27, 2024 Team Status: Inactive Member Role/Relationship Status Dates Dr. Eran Vu DO Primary care physician Active Start: September 28, 2024 End: September 28, 2024 Dr. Kiley Haji , Attending physician Acti ve Start: September 28, 2024 End: September 28, 2024 Dr. Kiley Haji DO Referring Provider Activ e Start: September 28, 2024 End: September 28, 2024 Team Status: Inactive Member Role/Relationship Status Dates Dr. Eran Vu DO Primary care physician Active Start: October 02, 2024 End: October 02, 2024 Dr. Eran Vu DO Referring Provider Active S tart: October 02, 2024 End: October 02, 2024 Dr. Charline Alvarez MD Attending physician Active Start: October 02, 2024 End: October 02, 2024 Team Status: Inactive Member Role/Relationship Status Dates Dr. Eran Vu DO Primary care physician Active Start: October 11, 2024 End: October 11, 2024 Dr. Eran Vu DO Referring Provider Active S tart: October 11, 2024 End: October 11, 2024 Naomi Hendrix NP, ROUTER SETTER-C Attending physician Active Start: October 11, 2024 End: October 11, 2024 Team Status: Inactive Member Role/Relationship Status Dates Dr. Eran Vu DO Primary care physician Active Start: November 09, 2024 End: November 09, 2024 Dr. Eran Vu DO Referring Provider Active S tart: November 09, 2024 End: November 09, 2024 Dr. Kiley Haji DO Attending physician Active Start: November End: November 09, 2024 Team Status: Inactive Member Role/Relationship Status Dates Dr. Eran Vu DO Primary care physician Active Start: November 09, 2024 End: November 09, 2024 Dr. Charline Alvarez MD Attending physician Active Start: November 09, 2024 End: November 09, 2024 Dr. Charline Alvarez MD Referring Provider Active Start: November 09, 2024 End: November 09, 2024 Team Status: Inactive Member Role/Relationship Status Dates Dr. Eran Vu DO Primary care physician Active Start: November 24, 2024 End: November 24, 2024 Dr. Eran Vu DO Referring Provider Active S tart: November 24, 2024 End: November 24, 2024 Nancy Wolfe CNM Attending physician Active Start: November 24, 2024 End: November 24, 2024 Team Status: Inactive Member Role/Relationship Status Dates Dr. Eran Vu DO Primary care physician Active Start: December 04, 2024 End: December 05, 2024 Dr. Charline Alvarez MD Attending physician Active Start: December 04, 2024 End: December 05, 2024 Dr. Charline Alvarez MD Referring Provider Active Start: December 04, 2024 End: December 05, 2024 Team Status: Inactive Member Role/Relationship Status Dates Dr. Eran Vu DO Primary care physician Active Start: December 04, 2024 End: December 04, 2024 Dr. Eran Vu DO Referring Provider Active S tart: December 04, 2024 End: December 04, 2024 Naomi Hendrix NP, NP-C Attending physician Active Start: December 04, 2024 End: December 04, 2024 Team Status: Inactive Member Role/Relationship Status Dates Dr. Eran Vu DO Primary care physician Active Start: December 19, 2024 End: December 19, 2024 Dr. Eran Vu DO Referring Provider Active S tart: December 19, 2024 End: December 19, 2024 Naomi Hendrix NP, NP-C Attending physician Active Start: December 19, 2024 End: December 19, 2024 FOR RECORDS PERTAINING TO PATIENTS WHO ARE OR HAVE BEEN ENROLLED IN A CHEMICAL DEPENDENCY/SUBSTANCEABUSE PROGRAM, SOME INFORMATION MAY BE OMITTED. This clinical summary was aggregated from multiple sources. Caution should be exercised in using it in the provision of clinical care. This summary normalizes information from multiple sources, and as a consequence, information in this document may materially change the coding, format and clinical context of patient data. In addition, data may be omitted in some cases. CLINICAL DECISIONS SHOULD BE BASED ON THE PRIMARY CLINICAL RECORDS. [facility] [employer] provides no warranty or guarantee of the accuracy or completeness of information in this document.
[2025-02-13] MEDS: Oxytocin 15 Units/NS 250ml 15 UNITS/250 ML IV.SOLN 2 UNITS IV (13:32)
[2025-02-13 14:12] LABS: Syphilis Antibodies Nonreactive (Nonreactive)
[2025-02-13] MEDS: 0.9% Normal Saline Single 100 ML IV.SOLN. INTRA-UTER (14:52)
--- NOTE | 2025-02-13 16:47 | HP.PCM.OB_ITS ---
HPI - General General Date of Admission: 02/13/25 HPI Narrative JOSE POLLACK, is a 24 F who presents @ 39w5d presents for IOL sec to GDM. Maternal Data Information ED Calculator Estimated Delivery Date Method Current WG Current Estimate 02/15/25 LMP (Certain) 39w 5d Other Estimates 02/19/25 Ultrasound #1 39w 1d PFSH PFSH Medical History Headache Seasonal allergies Medical History no medical history Home Medications ?Medication ?Instructions ?Recorded ?Last Taken ?Type docosahexaenoic acid 200 mg mg PO DAILY 06/07 05/02 Unknown History capsule ( DHA) flash glucose scanning reader #1 ea 11/10/24 Unknown R x (FreeStyle Rhonda 2 [place]) flash glucose sensor (FreeStyle #1 ea 11/28/24 Unknown Rx Rhonda 2 Sensor kit) Allergy/AdvReac Type Severity Reaction Status Date / Time amoxicillin Allergy Hives Verified 02/08/25 15:17 Penicillins Allergy Rash Verified 02/08/25 15:17 Family History Brother Asthma Father Diabetes Type 2 Grandfather Diabetes Type 2 Surgical History S/P wisdom tooth extraction S/P tonsillectomy and adenoidectomy Social History adopted: No household members: spouse current occupational status: employed current occupation: [employer] current occupational exposures/hazards: No pets and animals: Yes pets and animals: dog(s) history of recent travel: Yes ([place] & [place] & [place] - Apr 2024) out of state: No out of country: Yes sexually active: Yes Smoking Status: Never smoker alcohol intake: never substance use type: does not use well-balanced diet: daily or most days caffeine: No eating out: 1-3 times/week during the past year weight has: remained stable what type of physical activity do you participate in: walking frequency: 3-4 times per week duration: 15-30 minutes/day stephanie/yarsani: [employer] seatbelt use: always do you feel safe at home: Yes additional social history: : Joao Orosco History 1 Elective abortions Hx Para 0 Spontaneous abortions 0 Hx # Term Pregnancies Ectopic pregnancies Hx # Pregnancies Multiple births # of living children Visit Details Expected Delivery Route/Plan Labor Preferences- CB/BF classes: yes labor support person: Joao labor intervention preferences: [] pain management options preferred: open to epidural, touch, breathing techniques cut cord/dad catch: yes : yes PP control planned: [] discussed possible routes of delivery and associated risks: [] special requests: [] Plans Covid status: [] Flu vaccine: declines Tdap vaccine: given Rhogam: na LARC form signed: yes Problem list reviewed and updated with the most current plan of care details and appropriate orders placed. Relevant counseling for the gestational age provided. Continue routine care and follow up unless otherwise noted in visit notes/problem list details OB Flowsheet Initial Weight: Not Recorded Date -?-?-?-?-?-?-?-?-?-?-?-?- EGA Weight BP Urine Prot -?-?-?--?-?-?-?-?-?-?-?-?- Glucose FHR FuHt Pres Dilation -?-?-?-?-?-?-?-?-?--?-?-?- Effaced St Visit Note 07/14/24 -?-?-?-?-?-?-?-?-?-?-?-?- 9w 1d 226 lb 4 oz 146/95 -?-?-?-?-?-?-?-?-?-?-?-?- 171 -?-?-?-?-?-?-?-?-?-?-?-?- KW- CRL cons wit h dates. declines NIPT 08/16/24 -?-?-?-?-?-?-?-?-?-?-?-?- 13w 6d 229 lb 8 oz 126/94 Nega tive -?-?-?-?-?-?-?-?-?-?-?-?- Negative 160 -?-?-?-?-?-?-?-?-?-?-?-?- JV- patient stat es that she is feeling better BP was elevated initially. ordering baseline PIH labs and she will start taking her bp at home. 09/14/24 -?-?-?-?-?-?-?-?-?-?-?-?- 18w 0d 232 lb 6 oz 142/86 Nega tive -?-?-?-?-?-?-?-?-?-?-?-?- Negative 154 -?-?-?-?-?-?-?-?-?-?-?-?- JV- bp's at home are 120's/70's. not sure if feeling movement yet. has anatomy scan 09/21. She will bring in her cuff from home next visit to compare. repeat bp was the same 09/26/24 -?-?-?-?-?-?-?-?-?-?-?-?- 19w 5d 235 lb 2 oz 128/86 Nega tive -?-?-?-?-?--?-?-?-?-?-?-?- Negative -?-?-?-?-?-?-?-?-?-?-?-?- Nurse visit only :Variable BPs on home machine and high. No headache, vision changes. Small cuff, will get new machine. Pre E labs. 09/27/24 -?-?-?-?-?-?-?-?-?-?-?-?- 19w 6d 233 lb 2 oz 136/84 Nega tive -?-?-?-?-?-?-?-?-?-?-?-?- Negative -?-?--?-?-?-?-?-?-?-?-?-?- nurse visit only today for bp check due to headache 10/02/24 -?-?-?-?-?-?-?-?-?-?-?-?- 20w 4d 234 lb 140/86 -?-?-?-?-?-?-?-?-?-?-?-?- 145 -?-?-?-?-?-?-?-?-?-?-?-?- SM- nl bps at me nl labs and 24 hour urine. no vb lof good fm no regular ctx 10/11/24 -?-?-?-?-?-?-?-?-?-?-?-?- 21w 6d 235 lb 8 oz 128/84 Nega tive -?-?-?-?-?-?-?-?-?-?-?-?- Negative 155 -?-?-?-?-?-?-?-?-?-?-?-?- MH-No VB. Good F M. Nausea resolved. No concerns 11/09/24 -?-?-?-?-?-?-?-?-?-?-?-?- 26w 0d 237 lb 9 oz 131/84 Nega tive -?-?-?-?-?-?-?-?-?-?-?-?- Negative 145 -?-?-?-?-?-?-?-?-?-?-?-?- JV- did glucose test today. no complaints. JV- did glucose test today. no complaints. has appt for placenta location on 11/2311/24/24 -?-?-?-?-?-?-?-?-?-?-?-?- 28w 1d 237 lb 3 oz 134/89 Nega tive -?-?-?-?-?-?-?-?-?-?-?-?- Negative 150 28 -?-?-?-?-?-?-?-?-?-?-?-?- KW- reviewed blo od sugars and within normal limits. no vb/lof/ctx. good fm LARC and tdap today. CBE classes set up. will think about manager media relations. had follow up US with mfm and placenta moved. 12/04/24 -?-?-?-?-?-?-?-?-?-?-?-?- 29w 4d 239 lb 5 oz 128/83 Nega tive -?-?-?-?-?-?-?-?-?-?-?-?- Negative 141 30 -?-?-?-?-?-?-?-?-?-?-?-?- MH-NO VB, LOF. G ood Fm. All QID glucose readings WNL. Will check FBS and one 2 hr pp. 12/19/24 -?-?-?-?-?-?-?-?-?-?-?-?- 31w 5d 240 lb 9 oz 127/82 Nega tive -?-?-?-?-?-?-?-?-?-?-?-?- Negative 147 32 -?-?-?-?-?-?-?-?-?-?-?-?- MH-No VB, LOF. G ood FM. Still QID testing and all reading WNL. 01/02/25 -?-?-?-?-?-?-?-?-?-?-?-?- 33w 5d 243 lb 4 oz 137/85 Nega tive -?-?-?-?-?-?-?-?-?-?-?-?- Negative 145 34 -?-?-?-?-?-?-?-?-?-?-?-?- SM- no vb lof go od fm no regular ctx. 01/18/25 -?-?-?-?-?-?-?-?-?-?-?-?- 36w 0d 245 lb 4 oz 131/77 Nega tive -?-?-?-?-?-?-?-?-?-?-?-?- Negative 145 36 -?-?-?-?-?-?-?-?-?-?-?-?- Sm- no vb lof go od fm no reuglar ctx gbs today BS controlled 01/24/25 -?-?-?-?-?-?-?-?-?-?-?-?- 36w 6d 247 lb 6 oz 132/87 Nega tive -?-?-?-?-?-?-?-?-?-?-?-?- Negative 145 37 Cephalic 2 -?-?-?-?-?-?-?-?-?-?-?-?- 60 -2 KW- no vb/ lof/ctx. good fm. BS reviewed and normal. 01/31/25 -?-?-?-?-?-?-?-?-?-?-?-?- 37w 6d 249 lb 2 oz 129/95 Nega tive -?-?-?-?-?-?-?-?-?-?-?-?- Negative 140 37 Cephalic 2 .5 -?-?-?-?-?-?-?-?-?-?-?-?- 50 -2 JV- no lof , vaginal bleeding, or dec fm. glucose log is normal. growth scan from last week normal. 5.5lbs ac at 22nd% 02/08/25 -?-?-?-?-?-?-?-?-?-?-?-?- 39w 0d 252 lb 2 oz 138/83 Nega tive -?-?-?-?-?-?-?-?-?-?-?-?- Negative 159 38 Cephalic 2 .5 -?-?-?-?-?-?-?-?-?-?-?-?- 80 -2 JV- glucos e normal. first bp was 150's/ 90's sending to L&D to rule out p re-e NST FHR Rate Baby A Baseline: 130 Variability:: Moderate Accelerations:: 15 x 15 Decelerations:: None NST Reactive:: Yes FHR Category:: Category I Uterine Activity:: irregular ROS Constitutional Constitutional: Reports systems reviewed and no addt'l complaints, except as documented Eyes Eyes: Denies change in vision ENT HEENT: Reports systems reviewed and no addt'l complaints, except as documented; Denies headache(s) Cardiovascular Cardiovascular: Reports systems reviewed and no addt'l complaints, except as documented; Denies chest pain or dyspnea Respiratory/Chest Respiratory/Chest: Reports systems reviewed and no addt'l complaints, except as documented Gastrointestinal Gastrointestinal: Reports systems reviewed and no addt'l complaints, except as documented; Denies abdominal pain Genitourinary Genitourinary: Reports systems reviewed and no addt'l complaints, except as documented, contractions Details: present (irregular) and movement Details: present; Denies dysuria or genital lesions Musculoskeletal Musculoskeletal: Reports systems reviewed and no addt'l complaints, except as documented Neurologic Neurologic: Reports systems reviewed and no addt'l complaints, except as documented Endocrine Endocrinology: Reports systems reviewed and no addt'l complaints, except as documented Vital Signs Vital Signs Vital Signs: 02/13/25 09:40 02/13/25 09:40 02/13/25 09:45 Temperature Temperature Source Pulse Rate 108 H 102 H Respiratory Rate Blood Pressure BP Systolic BP Diastolic Pulse Ox 96 02/13/25 09:45 02/13/25 09:48 02/13/25 09:48 Temperature Temperature Source Pulse Rate 91 Respiratory Rate Blood Pressure 135/74 H BP Systolic 135 BP Diastolic 74 Pulse Ox 96 02/13/25 12:57 02/13/25 12:57 02/13/25 12:57 Temperature Temperature Source Temporal Pulse Rate 95 Respiratory Rate Blood Pressure 146/86 H BP Systolic 146 BP Diastolic 86 Pulse Ox 02/13/25 12:57 02/13/25 12:57 02/13/25 13:27 Temperature 98.3 F Temperature Source Temporal Pulse Rate Respiratory Rate 16 Blood Pressure BP Systolic BP Diastolic Pulse Ox 02/13/25 13:27 02/13/25 13:27 02/13/25 13:27 Temperature Temperature Source Pulse Rate 103 H Respiratory Rate 16 Blood Pressure 130/78 H BP Systolic 130 BP Diastolic 78 Pulse Ox 02/13/25 13:27 02/13/25 13:27 02/13/25 13:28 Temperature 98.0 F Temperature Source Pulse Rate Respiratory Rate Blood Pressure 130/78 H BP Systolic 130 BP Diastolic 78 Pulse Ox 95 02/13/25 13:28 02/13/25 13:28 02/13/25 13:49 Temperature Temperature Source Pulse Rate 106 H 114 H Respiratory Rate Blood Pressure BP Systolic BP Diastolic Pulse Ox 95 02/13/25 13:49 02/13/25 13:54 02/13/25 13:54 Temperature Temperature Source Pulse Rate 117 H Respiratory Rate Blood Pressure BP Systolic BP Diastolic Pulse Ox 96 96 02/13/25 13:59 02/13/25 13:59 02/13/25 14:18 Temperature Temperature Source Pulse Rate 112 H Respiratory Rate Blood Pressure 144/86 H BP Systolic 144 BP Diastolic 86 Pulse Ox 97 02/13/25 14:18 02/13/25 15:15 02/13/25 15:15 Temperature Temperature Source Temporal Pulse Rate 95 Respiratory Rate 16 Blood Pressure BP Systolic BP Diastolic Pulse Ox 02/13/25 15:15 02/13/25 15:25 02/13/25 15:26 Temperature 97.2 F L Temperature Source Pulse Rate Respiratory Rate 16 Blood Pressure 139/92 H BP Systolic 139 BP Diastolic 92 Pulse Ox 02/13/25 15:26 02/13/25 16:13 02/13/25 16:13 Temperature Temperature Source Temporal Pulse Rate 96 Respiratory Rate 16 Blood Pressure BP Systolic BP Diastolic Pulse Ox 02/13/25 16:13 02/13/25 16:15 02/13/25 16:15 Temperature 97.5 F L Temperature Source Pulse Rate 104 H Respiratory Rate Blood Pressure 138/68 H BP Systolic 138 BP Diastolic 68 Pulse Ox 02/13/25 16:16 02/13/25 16:16 Temperature Temperature Source Pulse Rate 100 Respiratory Rate Blood Pressure BP Systolic BP Diastolic Pulse Ox 96 Weight Weight: 294 lb 4 oz Body Mass Index (BMI) 44.7 PRE- weight 220 lb PRE- Body Mass Index 33.3 (BMI) Physical Exam Const alert, oriented x3, no apparent distress and healthy appearing HEENT normocephalic and moist oral mucous membranes Head and Scalp: atraumatic Neck full ROM, no lymphadenopathy, supple and thyroid normal General: trachea midline Lymph Lymphatic: no lymphadenopathy noted Chest inspection of chest normal Resp normal respiratory effort Cardio regular rate GI soft to palpation and non-tender GI Narrative: gravid Inspection: gravid external exam normal Manual OB Exam: estimated gestational size appropriate, presentation cephalic, dilated, effaced and station Extremity normal to inspection General Extremity: Negative for edema Skin no rashes or lesions noted Neuro no focal motor deficits and deep tendon reflexes 2+ bilaterally Motor Exam: strength 5/5 throughout and clonus absent Psych mental status grossly normal Labs Labs Labs: Blood Type AB POSITIVE Antibody Screen NEGATIVE Hct, (37-47) 41.6 % Hgb, (12.0-15.0) 14.1 g/dL Syphilis Total Ab, (Nonreactive) Nonreactive Rubella IgG Antibody, (Nonreactive) REAC Hep Bs Antigen, (Nonreactive) Nonreactive Hepatitis C Antibody, (Nonreactive) Nonreactive Chlamydia DNA (JEROMY), (Negative) Negative N.gonorrhoeae DNA (JEROMY), (Negative) Negative HIV 1&2 Antibody, (Nonreactive) Nonreactive Glucose 1 Hr 50 gm, (70-140) 181 mg/dL H Assessment & Plan (1) Gestational diabetes: QUALIFIERS: Gestational diabetes mellitus control: diet-controlled Trimester: second trimester Qualified Code(s): O24.410 - Gestational diabetes mellitus in , diet controlled COMMENT: diet controlled. growth US 36 weeks (2) White coat syndrome without hypertension: COMMENT: all normal bps at home. (3) Obesity affecting : QUALIFIERS: Trimester: second trimester Obesity type affecting : unspecified obesity Qualified Code(s): O99.212 - Obesity complicating , second trimester COMMENT: BMI 34.7; HgBA1C ordered w/NOB (4) Supervision of high-risk : QUALIFIERS: Trimester: second trimester Qualified Code(s): O09.92 - Supervision of high risk , unspecified, second trimester COMMENT: PRR ED 02/15/25, darian Jin : Joao (5) : QUALIFIERS: Weeks of gestation: 37 weeks Qualified Code(s): Z3A.37 - 37 weeks gestation of COMMENT: Neg GBS. Declines genetic/carrier/ntd testing. nl anatomy PLAN: Plan Patient presents IOL, plan management for with pit fb. Pain management: plans epidural. GBS negative. Management of any complications: gdm I have reviewed the [facility] and made any clinically relevant updates.
[2025-02-13] MEDS: Lactated Ringers 1,000 ML 999 ML IV (17:27)
[2025-02-13] MEDS: fentaNYL-bupivacaine (epidural) 100 ML BAG EPIDURAL ×2 (18:11→22:50)
[2025-02-13] MEDS: Lactated Ringers 1,000 ML 200 ML IV (21:14)
[2025-02-13] MEDS: LACTATED RINGERS 500 ML 999 ML IV (22:03)
[2025-02-13] MEDS: Amnioinfusion- 0.9% NS 1,000 ML IV.SOLN. 1000 ML INTRA-UTER (22:20)
[2025-02-14] VITALS (44 sets, daily range): BP systolic 78–135; BP diastolic 37–92; PULSE 90–123; RESP 16–20; TEMP 36.1–36.8; O2SAT 96–100
[2025-02-14] MEDS: Lactated Ringers 1,000 ML 200 ML IV (02:27)
--- NOTE | 2025-02-14 03:03 | OB.VAGDELI_ITS ---
Assessment & Plan (1) Gestational diabetes: QUALIFIERS: Gestational diabetes mellitus control: diet-controlled Trimester: second trimester Qualified Code(s): O24.410 - Gestational diabetes mellitus in , diet controlled COMMENT: diet controlled. growth US 36 weeks (2) White coat syndrome without hypertension: COMMENT: all normal bps at home. (3) Obesity affecting : QUALIFIERS: Trimester: second trimester Obesity type affecting : unspecified obesity Qualified Code(s): O99.212 - Obesity complicating , second trimester COMMENT: BMI 34.7; HgBA1C ordered w/NOB (4) Supervision of high-risk : QUALIFIERS: Trimester: second trimester Qualified Code(s): O09.92 - Supervision of high risk , unspecified, second trimester COMMENT: PRR ED 02/15/25, boy Davin : Joao (5) : QUALIFIERS: Weeks of gestation: 37 weeks Qualified Code(s): Z3A.37 - 37 weeks gestation of COMMENT: Neg GBS. Declines genetic/carrier/ntd testing. nl anatomy (6) Vaginal delivery: COMMENT: sm iol gdm 39 roman Maternal Data Information ED Calculator Estimated Delivery Date Method Current WG Current Estimate 02/15/25 LMP (Certain) 39w 6d Other Estimates 02/19/25 Ultrasound #1 39w 2d Vaginal Delivery Maternal Presentation Maternal Presentation: see assessment and plan Vaginal Delivery Information Procedure Performed: Spontaneous Vaginal Delivery Surgeon/Practitioner: Charline Trevino Pre-Procedure Diagnosis: see assessment and plan Post-Procedure Diagnosis: same Type of anesthesia: Epidural Estimated Blood Loss: 400 Findings Description of procedure: Patient began pushing and delivered the head in the ZENAIDA presentation. The head was delivered atraumatically . The anterior and posterior shoulders delivered without complication followed by the rest of the infant and the infant was placed on the maternal abdomen. Delayed cord clamping was employed for approximately 60 seconds. Cord was clamped and cut and gentle traction was applied to the cord and the placenta delivered spontaneously immediately following it was noted to be intact with three-vessel cord. The perineum and vagina were inspected and was noted to have a first degree -degree laceration that was repaired in the usual fashion but with additional figure of eight sutures with 3-0 vicryl rapide and 2-0 vicryl due to laceration to vulvar sinuses. EBL was 400. Patient and infant tolerated delivery well. Presentation: Vertex Placental Delivery Description: Spontaneous Specimen collected: Yes Description of specimen(s) removed: placenta Under Water Assistant benefit authorizer: No Post Vaginal Deli Medications given after delivery: Other (pitocin) Complication Complications: No Multi Select Codes Urinary/Genital Urinary/Genital CPT Codes: 69120 Vaginal Delivery [facility]
--- NOTE | 2025-02-14 03:05 | PCM.DC ---
Discharge Instructions DC O2, CPAP, BIPAP needs Home O2 Discharge instructions: No Dressing / Incision Discharge Activity: Return to Normal Activity, May Not Drive (while taking narcotic pain medications.) and May Shower May resume sexual activity in: 4-6 weeks Dressing / Incision Call your doctor if your incision/area has: Continuous Slow Oozing, Sudden Increased Bleeding, Increased Pain/ Swelling, Increased Redness and Foul Smelling Discharge Follow Up Care Please Follow Up With: Charline Trevino MD When: Call [phone] to make an appointment with your doctor in 6 weeks. If you had elevated blood pressure or 4th degree laceration, you will need to be seen in 2 weeks. Test Results: Test results from this visit will be discussed in further detail at your follow-up appointment, if applicable. Discharge Plan Admission Admit Date/Time: 02/13/25 10:45 Attending Provider: Charline Trevino Primary Care Provider: Nicola Loredo Discharge Orders/Prescriptions Prescriptions: No Action DHA 200 mg capsule PO DAILY (DME) FreeStyle Rhonda 2 [place] Misc See Rx Instructions .Route Qty: 1 0RF Rx Instructions: As directed (DME) FreeStyle Rhonda 2 Sensor Kit See Rx Instructions .Route Qty: 1 11RF Rx Instructions: As directed, fasting & 2 hr post meals Referrals / Follow Up: Nicola Loredo DO [Primary Care Provider, Pediatrics]
[2025-02-14] MEDS: Lactated Ringers 1,000 ML 999 ML IV (03:07)
[2025-02-14] MEDS: Oxytocin 15 Units/NS 250ml 15 UNITS/250 ML IV.SOLN 83 UNITS IV (03:25)
[2025-02-15 02:30] VITALS: BP 111/81; PULSE 103; RESP 18; TEMP 36.1; O2SAT 98
[2025-02-15 06:21] LABS: Hematocrit 27.1 % (37-47); Hemoglobin 8.8 g/dL (12.0-15.0); Mean Corp Hgb Conc 32.5 g/dL (32-36); Mean Corpuscular Volume 93.1 fL (81-99); Mean Platelet Vol. 10.6 fl (6.2-12.0); Platelet Count 222 K/mm3 (150-450); RBC Distribution Width CV 14.8 % (11.6-14.6); RBC Distribution Width SD 49.8 fl (35.1-43.9); Red Blood Count 2.91 M/mm3 (4.2-5.4); White Blood Count 14.2 K/mm3 (4.4-11.0)
[2025-02-15 07:53] VITALS: BP 132/79; PULSE 99; RESP 18; TEMP 36.6
[2025-02-15 12:30] LABS: Hematocrit 26.7 % (37-47); Hemoglobin 9.0 g/dL (12.0-15.0); Immature Granulocytes Count 0.080 X10^3/uL (0.0-0.0); Mean Corp Hgb Conc 33.7 g/dL (32-36); Mean Corpuscular Volume 91.4 fL (81-99); Mean Platelet Vol. 10.2 fl (6.2-12.0); NRBC Flagged by Analyzer 0 % (0-5); Platelet Count 248 K/mm3 (150-450); RBC Distribution Width CV 15.1 % (11.6-14.6); RBC Distribution Width SD 50.5 fl (35.1-43.9); Red Blood Count 2.92 M/mm3 (4.2-5.4); White Blood Count 15.0 K/mm3 (4.4-11.0)
[2025-02-15] MEDS: SELF ADMINISTRATION OF MEDS 1 EACH NOTE (13:08)
[2025-02-15 14:10] VITALS: BP 141/89; RESP 18
--- NOTE | 2025-02-15 14:27 | PN.OBGYN_ITS ---
Subjective Subjective Patient doing well without complaints. Tolerating PO. Ambulating and voiding without difficulty. feeding well. Denies chest pain, shortness of breath, calf pain/swelling, fevers, chills. felt dizzy yesterday now resolved. Objective Data Objective Data Vital Signs: Vital Signs Temp Pulse Resp BP Pulse Ox O2 Del Method 97.9 F 99 18 141/89 H 98 Room Air 02/15/25 07:53 02/15/25 07:53 02/15/25 14:10 02/15/25 14:10 02/15/25 02:30 02/15/25 14:10 Oxygen Delivery Method Room Air Weight: 294 lb 4 oz Body Mass Index (BMI) 44.7 Intake & Output: Intake and Output for Last 24 Hours 02/13/25 02/14/25 02/15/25 23:59 23:59 23:59 Intake Total 2311.87 / 2311.87 2950.63 / 2950.63 Output Total 700 / 700 1350 / 1350 Balance 1611.87 / 1611.87 1600.63 / 1600.63 Lab / Micro Data 02/15/25 12:05 Labs: Laboratory Results - last 24 hr 02/15/25 06:12: WBC 14.2 H, RBC 2.91 L, Hgb 8.8 L, Hct 27.1 L, MCV 93.1, MCH 30.2, MCHC 32.5, RDW Std Deviation 49.8 H, RDW Coeff of Ander 14.8 H, Plt Count 222, MPV 10.6 02/15/25 06:17: POC Glucose 88 02/15/25 12:05: WBC 15.0 H, RBC 2.92 L, Hgb 9.0 L, Hct 26.7 L, MCV 91.4, MCH 30.8, MCHC 33.7, RDW Std Deviation 50.5 H, RDW Coeff of Ander 15.1 H, Plt Count 248, MPV 10.2, Immature Gran % (Auto) 0.500, Neut % (Auto) 77.7 H, Lymph % (Auto) 14.3 L, [place] % (Auto) 6.0, Eos % (Auto) 1.1, Baso % (Auto) 0.4, Absolute Neuts (auto) 11.6 H, Absolute Lymphs (auto) 2.14, Nucleated RBC % 0 ROS Constitutional Constitutional: Reports systems reviewed and no addt'l complaints, except as documented Cardiovascular Cardiovascular: Reports systems reviewed and no addt'l complaints, except as documented Respiratory/Chest Respiratory/Chest: Reports systems reviewed and no addt'l complaints, except as documented Gastrointestinal Gastrointestinal: Reports systems reviewed and no addt'l complaints, except as documented Physical Exam Const alert, oriented x3 and no apparent distress HEENT Head and Scalp: atraumatic Resp normal respiratory effort GI soft to palpation and non-tender Narrative: normal vulvar exam no lumps or hematomas Bimanual Exam - Vag & Uterus: uterus non-tender Uterus Palpation: uterus fundus firm (below Umbilicus) Assessment & Plan (1) Vaginal delivery: COMMENT: sm iol gdm 39 roman vaginal tear with additional stitches needed for bleeding. (2) Gestational diabetes: QUALIFIERS: Gestational diabetes mellitus control: diet-controlled Trimester: second trimester Qualified Code(s): O24.410 - Gestational diabetes mellitus in , diet controlled COMMENT: diet controlled. growth US 36 weeks (3) Anemia: COMMENT: postdelivery PLAN: Plan s/p PPD # 1 1. routine post delivery care 2. breast feeding- support given 3. rh positive 4. rubella immune
--- NOTE | 2025-02-15 15:43 | NURSING ---
pts infant is being transported to [facility]. SM made aware of pts repea blood work and last BP reading. Pt to be discharged
--- NOTE | 2025-02-16 17:02 | PCM.DC.SUM ---
Providers Date of Admission: 02/13/25 Primary Care Physician: Dr. Nicola Loredo DO Reason For Visit: VAG Diagnosis Discharge Diagnosis (1) Vaginal delivery: Status: Acute Code(s): O80 - Encounter for full-term uncomplicated delivery (2) Gestational diabetes: Status: Acute Code(s): O24.419 - Gestational diabetes mellitus in , unspecified control Qualifiers: Gestational diabetes mellitus control: diet-controlled Trimester: second trimester Qualified Code(s): O24.410 - Gestational diabetes mellitus in , diet controlled (3) Anemia: Status: Acute Code(s): D64.9 - Anemia, unspecified Plan s/p PPD # 1 1. routine post delivery care 2. breast feeding- support given 3. rh positive 4. rubella immune Medications at Discharge Home Medications docosahexaenoic acid 200 mg capsule ( DHA) mg PO DAILY 06/27/24 flash glucose scanning reader (FreeStyle Rhonda 2 [place]) #1 ea 11/10/24 flash glucose sensor (FreeStyle Rhonda 2 Sensor kit) #1 ea 11/28/24 Hospital Course Summary of Care Provided Hospital Course: Admitted for induction of labor secondary to gestational diabetes was induced and delivered via vaginal delivery. Patient had a tear that was a first-degree but went through a vaginal sinus which was sutured and controlled without hematoma formation however she developed some anemia postop due to this. Hemoglobin was stable and initially she had some lightheadedness but that resolved with fluids and monitoring. Patient was stable for discharge to home on day 1. Weight / BMI Weight Weight: 294 lb 4 oz Body Mass Index (BMI) 44.7 PRE- weight 220 lb PRE- Body Mass Index 33.3 (BMI) ABG / Lab / Microbiology Data 02/15/25 12:05 D/C Instructions May resume sexual activity in: 4-6 weeks Call your doctor if your incision/area has: Continuous Slow Oozing, Sudden Increased Bleeding, Increased Pain/ Swelling, Increased Redness and Foul Smelling Discharge DC O2, CPAP, BIPAP Needs Home O2 Discharge instructions: No Please Follow Up With: Charline Trevino MD When: Call [phone] to make an appointment with your doctor in 6 weeks. If you had elevated blood pressure or 4th degree laceration, you will need to be seen in 2 weeks. Meaningful Use Info Meaningful Use Meaningful Use Diagnoses (Choose all that apply): None applicable Discharge Plan Admission Admit Date/Time: 02/13/25 10:45 Attending Provider: Charline Trevino Primary Care Provider: Nicola Loredo Instructions Patient Instructions: After a Vaginal Delivery (WP) Discharge Orders/Prescriptions Prescriptions: No Action DHA 200 mg capsule PO DAILY (DME) FreeStyle Rhonda 2 [place] Misc See Rx Instructions .Route Qty: 1 0RF Rx Instructions: As directed (DME) FreeStyle Rhonda 2 Sensor Kit See Rx Instructions .Route Qty: 1 11RF Rx Instructions: As directed, fasting & 2 hr post meals Referrals / Follow Up: Nicola Loredo DO [Primary Care Provider, Pediatrics] Disposition Disposition (needs filled in before D/C Order can be placed): Home, Self Care
== END 2025-02-15 15:50 | disposition home or self-care (01) | DRG 806 ==
LOC: WPOUT 10:46 → WP 10:46
PROVIDERS: Advanced Practice Midwife; Admitting Provider Obstetrics & Gynecology; PCP Pediatrics; Referring Provider Obstetrics & Gynecology; Visit Provider Obstetrics & Gynecology
DX: O24.420 Gestational diabetes mellitus in childbirth, diet controlled (principal); Z37.0 Single live birth; D62 Acute posthemorrhagic anemia; O99.214 Obesity complicating childbirth; O90.81 Anemia of the puerperium; O70.0 First degree perineal laceration during delivery; Z3A.39 39 weeks gestation of pregnancy
CPT/HCPCS: 59025; 59050; 82962; 84112; 85025; 85027; 86780; 86850; 86900; 86901; 99221; G0378; J2405